=== PATIENT | female | born 1945 | race Caucasian/White ===

== ENCOUNTER 2023-10-15 09:57 | Outpatient (OUT) | payer MEDICARE, SELFPAY ==
--- NOTE | 2023-10-15 09:59 | VEIN_ITS ---
Patient Name: CARLOS A BAKER MR#: [id number] : 1945 Exam Date: 10/15/2023 Ordering Doctor: DR RONALD FORRESTER D.P.M. RADIOLOGY REPORT PROCEDURE: VC EXT VENOUS REFLUX CHIN LMTD COMPARISON: None. INDICATIONS: Chronic venous insufficiency I87.2 TECHNIQUE: Duplex imaging of the lower extremity to assess the deep and superficial venous system for the presence of deep or superficial venous incompetence and to document the location and severity of disease. The study includes evaluation of the great saphenous vein (GSV), anterior accessory saphenous vein (AASV) and small saphenous vein (SSV). Patient scanned in reverse Trendelenburg and standing. FINDINGS: RIGHT LOWER EXTREMITY: Saphenofemoral Junction Reflux: Yes 7.0mm 2.6 sec GSV: Diam (mm) Reflux/ Time (sec) Proximal Thigh 6.1 Yes 0.6 Mid Thigh 2.4 No Distal Thigh 2.6 Yes 2.0 Prox Calf 2.5 Yes 2.0 Mid Calf 2.6 Yes 0.2 Saphenopopliteal Junction Reflux: 3.7mm Yes 0.4 SSV: Proximal Calf 3.0 Yes 0.8 Mid Calf 2.3 Yes 3.9 AASV: Proximal Thigh 9.9 Yes 3.6 Mid Thigh 8.6 Yes 1.0 Distal Thigh Thrombi: No acute or chronic thrombus. Compressibility: Normal. Flow: Mild deep venous reflux. Preforator: Distal medial lower leg measures 4.1 mm with 1.1s reflux. Prox/medial lower leg 4.5 mm with 1.0s reflux. Dist/ant thigh 5.1mm with 1.0s reflux. Tech Note: Previously treated GSV. Remaining segments are tortuous and discontinuous. Large complex area medial popliteal fossa measures 5.7 x 4.0 x 2.7 cm. Incompetent varicose vein mid medial thigh off AASV measures 6.8 mm with 1.2s reflux. Proximal lateral lower leg varicose vein measures 5.0 mm with 1.6s reflux. Lateral knee varicose vein measures 6.2 mm with 2.3s reflux. Distal anterior thigh varicose vein measures 5.0 mm with 2.3s reflux. LEFT LOWER EXTREMITY: Saphenofemoral Junction Reflux: Yes 13.5 mm 0.9 sec GSV: Diam (mm) Reflux/Time (sec) Proximal Thigh 7.2 Yes 1.7 Mid Thigh 4.7 Yes 3.9 Distal Thigh 4.6 Yes 3.9 Prox Calf 6.4 Yes 3.9 Mid Calf 4.1 Yes 2.8 Saphenopopliteal Junction Relux: 5.7 mm Yes 0.8 SSV: Proximal Calf 5.5 Yes 1.5 Mid Calf 2.5 Yes 0.9 AASV: Proximal Thigh 3.2 Yes 0.6 Mid Thigh 3.1 Yes 1.0 Distal Thigh Thrombi: No acute or chronic thrombus. Compressibility: Normal. Flow: Mild deep venous reflux. Power And Recovery Superintendent: Distal medial lower leg measures 2.4 mm with 2.2s reflux. Mid posterior calf 1.2s reflux. Tech Note: Incompetent varicose vein mid medial lower leg measures 5.5 mm with 3.9s reflux. Varicose vein mid medial thigh measures 3.0 mm with 0.5s reflux. CONCLUSION: 1. Discontiguous proximal right great saphenous vein likely related to prior procedure 2. Severe venous insufficiency and dilatation of the right anterior accessory saphenous vein 3. Severe venous insufficiency with dilatation left great saphenous vein 4. Bilateral incompetent varicose veins 5. 5.7 cm complex mass medial popliteal fossa. MRI follow-up is recommended to exclude a mass Dictated by: Lang Smiley MD on 10/15/2023 at 11:40 Approved by: Lang Smiley MD on 10/15/2023 at 11:43
--- NOTE | 2023-10-15 09:59 | VEIN_ITS ---
Patient Name: CARLOS A BAKER MR#: [id number] : 1945 Exam Date: 10/15/2023 Ordering Doctor: DR RONALD FORRESTER D.P.M. RADIOLOGY REPORT PROCEDURE: [facility] - OFFICE VISIT INITIAL COMPARISON: None. PROGRESS NOTES: 6-year-old female who presents with a 50 year history of lower extremity pain swelling and varicose veins. The patient reports that the right leg is significantly worse than the left with persistent inflammation and pain along the anterior right thigh. The patient rates the pain as a 10/10 at certain times of the day. The patient describes the pain as aching dull and heaviness with sharp pain along the anterior right thigh at times. The patient's symptoms are exacerbated by prolonged sitting and standing and are only partially relieved by rest, leg elevation, over the counter Tylenol and support stockings. The patient is referred by Dr. Velasco secondary to venous insufficiency. The patient denies any signs and symptoms to suggest arterial ischemia. The patient describes a family history significant for cancer in her mother. Heart disease in her mother. Type 2 diabetes in her father. . Six grandkids and 4 great grandkids. Patient's past medical history is significant for hypothyroidism, hypercholesterolemia and type 2 diabetes. Social alcohol use. The patient has never smoked. No illicit drug use. The patient has previously been seen by Dr. Aguirre for injection of the right leg. No history of deep venous thrombus or pulmonary embolus. See separate history and physical for medication list. Nursing notes were reviewed After history and physical exam I discussed at length the pathophysiology of venous hypertension and possible treatments, therapies and strategies available. We discussed at length the importance of elevating the lower extremities above the level of the heart, increased physical activity and compression stocking use. We discussed alternatives including conservative treatment with compression stockings, surgical interventions with ligation and stripping and phlebectomy. We discussed intravenous laser ablation, micro foam chemical ablation and injection sclerotherapy at length. Risks benefits and alternatives were discussed and the patient's questions were answered. Ultrasound venous reflux study performed the same day was discussed at length with the patient. The report demonstrates evidence of prior treatment of the proximal right great saphenous vein. Severe right anterior accessory saphenous vein and left great saphenous vein venous insufficiency with dilatation. Bilateral incompetent varicose veins. 5.7 cm right popliteal fossa heterogeneous mass without definite color flow. PHYSICAL EXAM: The right leg demonstrates extensive varicose, reticular and spider veins. Mild subcutaneous edema. Mild hemosiderin staining. No active ulcerations. The left leg demonstrates extensive varicose, reticular and spider veins. Mild subcutaneous edema. Mild hemosiderin staining. No active ulcerations. Both thighs, legs and feet were symmetrically warm to the touch. Good posterior tibial and dorsalis pedis pulses were present bilaterally. VEIN/VC Facility NEW [facility] IMPRESSION: 1. Severe right anterior and left great saphenous vein venous insufficiency with dilatation and saphenofemoral junction reflux. 2. Bilateral lower extremity incompetent varicose veins 3. Mild bilateral lower extremity subcutaneous edema 4. No definite flow significant arterial disease 5. CEAP: C4a, Ep, As, Pr 6. Indeterminate right popliteal fossa mass, the differential diagnosis would include complex popliteal cyst versus particle disease versus malignancy PLAN: 1. CT exam of the right knee without and with contrast to evaluate enhancement characteristics of 5.7 cm mass 2. Intravenous laser ablation right anterior accessory saphenous vein and left great saphenous vein 3. Micro foam chemical ablation bilateral incompetent varicose veins 4. Injection sclerotherapy reticular and spider veins 5. Long-term use of bilateral thigh-high 20-30 mm compression stockings 6. Elevated legs and increased physical activity for symptomatic relief Nurse notes, history and physical were reviewed and confirmed, see attached forms. The nurse was present throughout the physical exam and consultation Dictated by: Lang Smiley MD on 10/15/2023 at 13:19 Approved by: Lang Smiley MD on 10/15/2023 at 13:25
== END 2023-10-15 09:58 | disposition home or self-care (01) ==
LOC: VC 09:58
PROVIDERS: PCP Family Medicine; Visit Provider Podiatrist Foot & Ankle Surgery
DX: E11.49 Type 2 diabetes mellitus with other diabetic neurological complication (principal); I87.2 Venous insufficiency (chronic) (peripheral); B35.1 Tinea unguium; M79.674 Pain in right toe(s); M79.675 Pain in left toe(s)
CPT/HCPCS: 93970; G0463

== ENCOUNTER 2023-11-02 12:35 | Outpatient (OUT) | payer MEDICARE, SELFPAY ==
--- NOTE | 2023-11-02 12:45 | CT_ITS ---
The [address] [address] Patient Name: CARLOS A BAKER MRN: [id number] date: 1945 Sex: F Assigned Patient Location: LAB Current Patient Location: Accession/Order Number: [id number] Exam Date: 11/02/2023 13:10 Report Date: 11/03/2023 06:28 At the request of: CINDA JOHNSON Procedure: CT knee RT wo/w con EXAMINATION: CT knee RT wo/w con HISTORY: Right Knee Mass R22.41 ; lump posterior to right knee COMPARISON: No relevant comparison available. TECHNIQUE: Multi-planar CT images were created without and/or with IV contrast according to examination type. Dose reduction techniques were achieved by using automated exposure control and/or adjustment of mA and/or kV according to patient size and/or use of iterative reconstruction technique. FINDINGS: BONES: Prior knee replacement and resurfacing of the patellofemoral resulting in significant metallic artifact. SOFT TISSUES: Fluid collection within posterior medial popliteal fossa partially visible above and below the metallic streak artifact. EFFUSION: None visible. OTHER: Negative. CT/CT knee RT wo/w con IMPRESSION: Fluid collection within medial popliteal fossa is suspected to represent a Toscano's cyst. Ultrasound evaluation recommended. Electronically authenticated by: APOLLO THOMPSON Date: 11/03/2023 06:28
[2023-11-02 12:51] LABS: Estimated GFR (African America >60 (>=60); Estimated GFR (Non-African Ame >60 (>=60)
--- OUTSIDE RECORDS SUMMARY | 2023-11-02 12:52 | XMS_ITS | CCD ---
Author Organization [facility] Care Team Providers Care Public Speaking Coach Name Role Phone MIKY GLEZ Unavailable Unavailable MARIBELL, NAKIA Unavailable Unavailable KASSAJEANETH KAYEL Unavailable Unavailable MARIBELL, NAKIA Unavailable Unavailable Unavailable Primary Care Provider Unavailveronica Winters MD, Octavio Nelson Primary Care Provider OCTAVIO WINTERS Primary Care Unavailable JOIE TOMAS Admitting UnavailJOIE Meyers Referring UnavailLORAINE Sahni Attending Unavailab emma Winters MD, Octavio Nelson Primary Care Provider RONALD FORRESTER Attending Unavailable OCTAVIO WINTERS R Primary Care Unavailable OCTAVIO WINTERS R Referring Unavailable RAVEN MACIAS Attending Unavailable PETERTYLER GREENBERG Attending Unavailable BROWN, Christopher Attending Unavailable BROWN, Christopher Attending Unavailable BROWN, Christopher Attending Unavailable BROWN, Christopher Attending Unavailable BROWN, Christopher Attending Unavailable BROWN, Christopher Attending Unavailable BROWN, Christopher Attending Unavailable DO Mara Hernandez Attending Unavaila ble BROWN, Christopher Attending Unavailable BROWN, Christopher Attending Unavailable BROWN, Christopher Admitting Unavailable BROWN, Christopher Referring Unavailable PETERTYLER GREENBERG Attending Unavailable PETER, TYLER Admitting Unavailable BROWN, Christopher Admitting Unavailable BROWN, Christopher Attending Unavailable BROWN, Christopher Admitting Unavailable BROWN, Christopher Attending Unavailable Danish Pires Attending Unavailable Colton Luke Attending Unavailable Colton Luke Admitting Unavailable Colton Luke Attending Unavailable Allergies Allergy Classification Reported Allergen(s) Allergy Type Date of Onset Reaction(s) Facility (1 source) naproxen; Translations: [facility] Propranolol; Translations: [PROPRANOLOL] Drug Allergy 2 Other (See Comments) [facility] Work Phone: (1 source) Cisapride; Translations: [Propulsid] Drug Allergy [facility] Repository (1 source) Clarithromycin; Translations: [Biaxin] Drug Allergy [facility] Repository (1 source) Naproxen; Translations: [Naprosyn] Drug Allergy [facility] Repository (1 source) oxaprozin; Translations: [Daypro] Drug Allergy [facility] Repository Medications Current Medications Medication Drug Class(es) Dates Sig (Normalized) Sig (Original) aspirin 81 mg delayed release oral tablet (7 sources) Platelet Aggregation Inhibitor, Nonsteroidal Anti-inflammatory Drug Start: 10-18-2010 take 1 tablet by mouth once daily aspirin 81 MG EC tablet Take 1 (one) tablet (81 mg total) by mouth daily . 0 10/18/2010 Active atorvastatin 80 mg oral tablet (7 sources) HMG-CoA Reductase Inhibitor take 1 tablet by mouth once daily atorvastatin (LIPITOR) 80 MG tablet Take 1 (one) tablet (80 mg total) by mouth daily . 0 Active calcium acetate 667 mg oral capsule (4 sources) take 2 capsules by mouth three times daily at mealtime calcium acetate,phosphat bind, (PHOSLO) 667 mg capsule Take 2 (two) capsules (1,334 mg total) by mouth 3 (three) times a day with meals . 0 Active calcium carbonate 1500 mg / cholecalciferol 0.01 mg oral tablet (7 sources) Vitamin D Start: 10-18-2010 calcium carbonate-vitamin D3 600 mg-10 mcg (400 unit) per tablet Take by mouth . 0 10/18/2010 Active famotidine 40 mg oral tablet (7 sources) Histamine-2 Receptor Antagonist take 1 tablet by mouth at bedtime famotidine (PEPCID) 40 MG tablet Take 1 (one) tablet (40 mg total) by mouth at bedtime . 0 Active hydroCHLOROthiazide 25 mg / lisinopril 20 mg oral tablet (7 sources) Thiazide Diuretic, Angiotensin Converting Enzyme Inhibitor take 1 tablet by mouth once daily lisinopriL-hydroc hlorothiazide (PRINZIDE,ZESTORE TIC) 20-25 mg per tablet Take 1 (one) tablet by mouth daily . 0 Active metFORMIN hydrochloride 500 mg oral tablet (7 sources) Biguanide take 1 tablet by mouth twice daily metFORMIN (GLUCOPHAGE) 500 MG tablet Take 1 (one) tablet (500 mg total) by mouth 2 (two) times a day . 0 Active topiramate 100 mg oral tablet (5 sources) Start: 03-06-2022 take 0.5 tablet by mouth once daily, then take 0.5 tablet by mouth twice daily, then take 1 tablet by mouth twice daily topiramate (Topamax) 100 MG tablet Take 0.5 (one-half) tablet (50 mg total) by mouth daily for 7 days, THEN 0.5 (one-half) tablet (50 mg total) 2 (two) times a day for 7 days, THEN 1 (one) tablet (100 mg total) 2 (two) times a day. 71 tablet 2 03/06/2022 Active nfujoom-xjvk-eyqdh-oreg- capryl 100 mg-150 mg- 50 mg-150 mg cap (7 sources) hwihymf-xzro-dpf v d-cyrc-dnciln 100 mg-150 mg- 50 mg-150 mg cap Take by mouth . 0 Active zinc gluconate 50 mg oral tablet (7 sources) take 1 tablet by mouth once daily zinc gluconate 50 mg tablet Take 1 (one) tablet (50 mg total) by mouth daily . 0 Active Problems Problem Classification Problem Date Documented Da te Episodic/Chronic Administrative/social admission (4 sources) Other reduced mobility; Translations: [Other specified conditions influencing health status] Onset: 10-26-2023 10-26-2023 Episodic Other hereditary and degenerative nervous system conditions (6 sources) Essential tremor; Translations: [Essential tremor] Onset: 10-11-2023 Chronic Other hereditary and degenerative nervous system conditions (1 source) Intention tremor; Translations: [Other specified forms of tremor] 04-10-2023 Chronic Other hereditary and degenerative nervous system conditions (1 source) Essential tremor; Translations: [Essential tremor] Onset: 10-11-2023 Chronic Other nervous system disorders (2 sources) Tremor; Translations: [Tremor, unspecified] Episodic Residual codes; unclassified (4 sources) Activity of daily living (ADL) alteration; Translations: [Other specified health status] Onset: 10-26-2023 10-26-2023 Episodic Varicose veins of lower extremity (1 source) Asymptomatic varicose veins of unspecified lower extremity; Translations: [Asymptomatic varicose veins of unspecified lower extremity] Onset: 11-28-2017 Episodic Results Test Name Value Interpretation Reference Range Facil ity Consent for Treatmenton 10-05 Consent for Treatment [id number] F [facility] Screenson 10-15-2023 Screens [id number] F [facility] Ambulatory Visit Summaryon 0 10-12-2023 Ambulatory Visit Summary CARLOS A SOW :1945 Visit Date:10/12/2023 Ambulatory Visit Instructions Your Diagnosis Annual visit for general adult medical examination without abnormal findings 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 Diabetic polyneuropathy associated with type 2 diabetes mellitus Type 2 diabetes mellitus with hyperlipidemia, Type 2 diabetes mellitus with morbid obesity HTN - Hypertension GERD (gastroesophageal reflux disease) Insomnia Screening mammogram for breast cancer On statin therapy BMI 35.0-35.9,adult Obesity Your Care Team Attending Physician - JOSHUA LUCAS, Octavio Primary Care Physician - JOSHUA LUCAS, Octavio This Is Your Medications List Misc Prescription (Glucometer test strips) Misc Prescription (Handicap placard) Misc Prescription (Lancets) Misc Prescription (Misc DME Prescription) Misc Prescription (Misc DME Prescription) Turmeric albuterol (Albuterol (Eqv-Proventil HFA) 90 mcg/inh inhalation aerosol) ascorbic acid (Vitamin C) atorvastatin (atorvastatin 80 mg Tab) calcium carbonate (calcium 500 mg tablet) cholecalciferol (Vitamin D3 2000 intl units) famotidine (famotidine 40 mg Tab) hydrochlorothiazide-tk nopril (hydrochlorothiazide-lis inopril 25 mg-20 mg Tab) metformin (metformin 500 mg Tab) multivitamin with minerals (Multivitamins and Minerals) pantoprazole (Pantoprazole [address] Tab) triamcinolone topical (triamcinolone topical 0.5% cream) zinc sulfate (Zinc) [Image Removed: STOP]Stop taking these medications levofloxacin (Levaquin 500 mg Tab) Procedures Performed Carpal tunnel release (01/24/2021), Colonoscopy (08/06/2013), Bunionectomy (12/14/2009), 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 Discharge Vitals Blood Pressure 118/70 Height 153 cm Height 60 in Weight 84.11 kg Weight 185.042 lb BMI 35.93 What to do next Scheduled Follow-Up Appointments Sunday 12:30 PM EDT With: Where: [facility] Sunday 11:40 AM EDT With: Octavio WINTERS MD Where: [facility] [place] [facility] [address] [place] [address]- \.br\ You Need to Complete the Following\.br\ MA Mamm Screen w/CAD if perf and 3D Stuart, 10/30/23, Routine, Order for Future Visit, Transport Mode: Ambulatory, Reason: Screening, Reason: Z12.31, No, No, No, Screening mammogram for breast cancer, pp_set_radiology_s ubspecialty, Required & Missing, [facility]\.br\ Medications\.br\ What How Much When Instructions\.br\ Unchanged albuterol (Albuterol (Eqv-Proventil HFA) 90 mcg/ inh inhalation aerosol) 2 Puffs Inhalation Every 6 hours\.br\ Unchanged ascorbic acid (Vitamin C) See instructions patient gets OTC, not prescribed \.br\ Unchanged atorvastatin (atorvastatin 80 mg Tab) 1 Tablets By Mouth Every day\.br\ Unchanged calcium carbonate (calcium 500 mg tablet) See instructions patient gets OTC, not prescribed \.br\ Unchanged cholecalciferol (Vitamin D3 2000 intl units) See instructions Patient gets OTC, not prescribed \.br\ Unchanged famotidine (famotidine 40 mg Tab) 1 Tablets By Mouth Once a day (at bedtime)\.br\ Unchanged hydrochlorothiazid e-lisinopril (hydrochlorothiazi de-lisinopril 25 mg-20 mg Tab) 1 Tablets By Mouth Every day\.br\ Unchanged metformin (metformin 500 mg Tab) 1 Tablets By Mouth 2 times a day\.br\ Unchanged Misc Prescription (Glucometer test strips) See instructions Test blood sugar daily DX E11.69 \.br\ Unchanged Misc Prescription (Handicap placard) See instructions Duration 5 years \.br\ Unchanged Misc Prescription (Lancets) See instructions Test blood sugar daily DX E11.69 \.br\ Unchanged Misc Prescription (Misc DME Prescription) See instructions freestyle lite test in vitro strip, one QD, dx e11.9 \.br\ Unchanged Misc Prescription (Misc DME Prescription) See instructions freestyle lancets, one QD, dx e11.9 \.br\ Unchanged multivitamin with minerals (Multivitamins and Minerals)\.br\ Unchanged pantoprazole (Pantoprazole [address] Tab) 1 Tablets By Mouth Every day take 30 minutes prior to one meal daily \.br\ Unchanged triamcinolone topical (triamcinolone topical 0.5% cream) 1 Application Topical 2 times a day\.br\ Unchanged Turmeric 500 Milligram By Mouth Every day\.br\ Unchanged zinc sulfate (Zinc) See instructions Patient gets OTC, not prescribed \.br\ \.br\ What How Much When Comments\.br\ Stop Taking levofloxacin (Levaquin 500 mg Tab) 1 Tablets By Mouth Every 24 hours Duration: 10 Days\.br\ Allergies\.br\ Biaxin (Nausea, vomiting and diarrhea)\.br\ Daypro (Nausea, vomiting and diarrhea)\.br\ Naprosyn\.br\ Propulsid (Unspecified)\.br\ Problems\.br\ Ongoing - Any problem that you are currently receiving treatment for.\.br\ Action tremor\.br\ Acute bacterial bronchitis\.br\ Allergy to environmental factors\.br\ At risk for falls\.br\ BMI 35.0-35.9,adult\.b r\ CAD (coronary artery disease)\.br\ Carpal tunnel syndrome, left upper limb\.br\ Diabetic polyneuropathy associated with type 2 diabetes mellitus\.br\ DJD (degenerative joint disease)\.br\ Ectatic aorta\.br\ Eczema\.br\ 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\.br\ Gait disturbance\.br\ GERD (gastroesophageal reflux disease)\.br\ HTN - Hypertension\.br\ Impingement syndrome of right shoulder\.br\ Insomnia\.br\ Intermittent asthma with acute exacerbation\.br\ Left lumbar radiculopathy\.br\ MC[facility] current use of oral hypoglycemic drug\.br\ Meniere disease\.br\ Mild persistent asthma\.br\ Mixed hyperlipidemia\.br \ Mixed stress and urge urinary incontinence\.br\ Morbid obesity\.br\ On statin therapy\.br\ Right cervical radiculopathy\.br\ Type 2 diabetes mellitus with hyperlipidemia\.br \ Type 2 diabetes mellitus with morbid obesity\.br\ Varicose veins of bilateral lower extremities with other complications\.br\ Varicose veins of lower extremities with inflammation\.br\ Varicose veins of right lower extremity with pain\.br\ Venous insufficiency of right leg\.br\ Historical - Any problem that you are no longer receiving treatment for.\.br\ borderline diabetic\.br\ Factor 5 Leiden mutation\.br\ History of - hypercholesterolem ia\.br\ hypertension\.br\ Obesity (BMI 30-39.9)\.br\ Reactive airway disease\.br\ Screening mammogram, encounter for\.br\ Patient Survey\.br\ You may receive a survey via text or e-mail asking about your office visit. Please share your experience with us by completing your survey. We appreciate your feedback and thank you for choosing us for your care.\.br\ Education Materials\.br\ Type 2 Diabetes Mellitus, Self-Care, Adult\.br\ Caring for yourself after you have been diagnosed with type 2 diabetes (type 2 diabetes mellitus) means keeping your blood sugar (glucose) under control with a balance of:\.br\ ? \.br\ Nutrition.\.br\ ? \.br\ Exercise.\.br\ ? \.br\ Lifestyle changes.\.br\ ? \.br\ Medicines or insulin, if needed.\.br\ ? \.br\ Support from your team of health care providers and others.\.br\ What are the risks?\.br\ Having type 2 diabetes can put you at risk for other long-term (chronic) conditions, such as heart disease and kidney disease. Your health care provider may prescribe medicines to help prevent complications from diabetes.\.br\ How to monitor your blood glucose\.br\ \.br\ ? \.br\ Check your blood glucose every day or as often as told by your health care provider.\.br\ ? \.br\ Have your A1C (hemoglobin A1C) level checked two or more times a year, or as often as told by your health care provider.\.br\ ? \.br\ Your health care provider will set personalized treatment goals for you. Generally, the goal of treatment is to maintain the following blood glucose levels:\.br\ ? \.br\ Before meals: 80?130 mg/dL (4.4?7.2 mmol/L).\.br\ ? \.br\ After meals: below 180 mg/dL (10 mmol/L).\.br\ ? \.br\ A1C level: less than 7%.\.br\ How to manage hyperglycemia and hypoglycemia\.br\ Hyperglycemia symptoms\.br\ Hyperglycemia, also called high blood glucose, occurs when blood glucose is too high. Make sure you know the early signs of hyperglycemia, such as:\.br\ ? \.br\ Increased thirst.\.br\ ? \.br\ Hunger.\.br\ ? \.br\ Feeling very tired.\.br\ ? \.br\ Needing to urinate more often than usual.\.br\ ? \.br\ Blurry vision.\.br\ Hypoglycemia symptoms\.br\ Hypoglycemia, also called low blood glucose, occurs with a blood glucose level at or below 70 mg/dL (3.9 mmol/L). Diabetes medicines lower your blood glucose and can cause hypoglycemia. The risk for hypoglycemia increases during or after exercise, during sleep, during illness, and when skipping meals or not eating for a long time (fasting).\.br\ It is important to know the symptoms of hypoglycemia and treat it right away. Always have a 15-gram rapid-acting carbohydrate snack with you to treat low blood glucose. Family members and close friends should also know the symptoms and understand how to treat hypoglycemia, in case you are not able to treat yourself. Symptoms may include:\.br\ ? \.br\ Hunger.\.br\ ? \.br\ Anxiety.\.br\ ? \.br\ Sweating and feeling clammy.\.br\ ? \.br\ Dizziness or feeling light-headed.\.br\ ? \.br\ Sleepiness.\.br\ ? \.br\ Increased heart rate.\.br\ ? \.br\ Irritability.\.br\ ? \.br\ Tingling or numbness around the mouth, lips, or tongue.\.br\ ? \.br\ Restless sleep.\.br\ Severe hypoglycemia is when your blood glucose level is at or below 54 mg/dL (3 mmol/L).\.br\ Severe hypoglycemia is an emergency. Do not wait to see if the symptoms will go away. Get medical help right away. Call your local emergency services (911 in the [facility] Ambulatory Visit Summary CARLOS A SOW :1945 Visit Date:10/12/2023 Ambulatory Visit Instructions Your Diagnosis Acute bacterial bronchitis Mild persistent asthma Action tremor Morbid obesity BMI 35.0-35.9,adult Your Care Team Attending Physician - Octavio WINTERS MD Primary Care Physician - Octavio WINTERS MD This Is Your Medications List Contact prescribing physician if questions or concerns Misc Prescription (Glucometer test strips) Misc Prescription (Handicap placard) Misc Prescription (Lancets) Misc Prescription (Misc DME Prescription) Misc Prescription (Misc DME Prescription) Turmeric albuterol (Albuterol (Eqv-Proventil HFA) 90 mcg/inh inhalation aerosol) ascorbic acid (Vitamin C) atorvastatin (atorvastatin 80 mg Tab) calcium carbonate (calcium 500 mg tablet) cholecalciferol (Vitamin D3 2000 intl units) famotidine (famotidine 40 mg Tab) hydrochlorothiazide-tk nopril (hydrochlorothiazide-lis inopril 25 mg-20 mg Tab) metformin (metformin 500 mg Tab) multivitamin with minerals (Multivitamins and Minerals) pantoprazole (Pantoprazole [address] Tab) triamcinolone topical (triamcinolone topical 0.5% cream) zinc sulfate (Zinc) [Image Removed: STOP]Stop taking these medications levofloxacin (Levaquin 500 mg Tab) Procedures Performed Carpal tunnel release (01/24/2021), Colonoscopy (08/06/2013), Bunionectomy (12/14/2009), 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 Discharge Vitals Heart Rate (Peripheral) 52 Respiratory Rate 16 Blood Pressure 118/70 Height 153 cm Height 60 in Weight 84.1 kg Weight 185.02 lb BMI 35.93 What to do next Scheduled Follow-Up Appointments Sunday 12:30 PM EDT With: Where: [facility] Sunday 11:40 AM EDT With: Octavio WINTERS MD Where: [facility] [address] [place] [address]- \.br\ You Need to Schedule the Following Appointments\.br\ Follow Up with Octavio WINTERS MD, [facility] When: Only if needed\.br\ Where:\.br\ \.br\ You Need to Complete the Following\.br\ MA Mamm Screen w/CAD if perf and 3D Stuart, 10/30/23, Routine, Order for Future Visit, Transport Mode: Ambulatory, Reason: Screening, Reason: Z12.31, No, No, No, Screening mammogram for breast cancer, pp_set_radiology_s ubspecialty, Required & Missing, [facility]\.br\ Medications\.br\ What How Much When Instructions\.br\ Unchanged albuterol (Albuterol (Eqv-Proventil HFA) 90 mcg/ inh inhalation aerosol) 2 Puffs Inhalation Every 6 hours Contact prescribing physician if questions or concerns \.br\ Unchanged ascorbic acid (Vitamin C) See instructions patient gets OTC, not prescribed Contact prescribing physician if questions or concerns \.br\ Unchanged atorvastatin (atorvastatin 80 mg Tab) 1 Tablets By Mouth Every day Contact prescribing physician if questions or concerns \.br\ Unchanged calcium carbonate (calcium 500 mg tablet) See instructions patient gets OTC, not prescribed Contact prescribing physician if questions or concerns \.br\ Unchanged cholecalciferol (Vitamin D3 2000 intl units) See instructions Patient gets OTC, not prescribed Contact prescribing physician if questions or concerns \.br\ Unchanged famotidine (famotidine 40 mg Tab) 1 Tablets By Mouth Once a day (at bedtime) Contact prescribing physician if questions or concerns \.br\ Unchanged hydrochlorothiazid e-lisinopril (hydrochlorothiazi de-lisinopril 25 mg-20 mg Tab) 1 Tablets By Mouth Every day Contact prescribing physician if questions or concerns \.br\ Unchanged metformin (metformin 500 mg Tab) 1 Tablets By Mouth 2 times a day Contact prescribing physician if questions or concerns \.br\ Unchanged Misc Prescription (Glucometer test strips) See instructions Test blood sugar daily DX E11.69 Contact prescribing physician if questions or concerns \.br\ Unchanged Misc Prescription (Handicap placard) See instructions Duration 5 years Contact prescribing physician if questions or concerns \.br\ Unchanged Misc Prescription (Lancets) See instructions Test blood sugar daily DX E11.69 Contact prescribing physician if questions or concerns \.br\ Unchanged Misc Prescription (Misc DME Prescription) See instructions freestyle lite test in vitro strip, one QD, dx e11.9 Contact prescribing physician if questions or concerns \.br\ Unchanged Misc Prescription (Misc DME Prescription) See instructions freestyle lancets, one QD, dx e11.9 Contact prescribing physician if questions or concerns \.br\ Unchanged multivitamin with minerals (Multivitamins and Minerals) Contact prescribing physician if questions or concerns \.br\ Unchanged pantoprazole (Pantoprazole [address] Tab) 1 Tablets By Mouth Every day take 30 minutes prior to one meal daily Contact prescribing physician if questions or concerns \.br\ Unchanged triamcinolone topical (triamcinolone topical 0.5% cream) 1 Application Topical 2 times a day Contact prescribing physician if questions or concerns \.br\ Unchanged Turmeric 500 Milligram By Mouth Every day Contact prescribing physician if questions or concerns \.br\ Unchanged zinc sulfate (Zinc) See instructions Patient gets OTC, not prescribed Contact prescribing physician if questions or concerns \.br\ \.br\ What How Much When Comments\.br\ Stop Taking levofloxacin (Levaquin 500 mg Tab) 1 Tablets By Mouth Every 24 hours Duration: 10 Days\.br\ Allergies\.br\ Biaxin (Nausea, vomiting and diarrhea)\.br\ Daypro (Nausea, vomiting and diarrhea)\.br\ Naprosyn\.br\ Propulsid (Unspecified)\.br\ Problems\.br\ Ongoing - Any problem that you are currently receiving treatment for.\.br\ Action tremor\.br\ Acute bacterial bronchitis\.br\ Allergy to environmental factors\.br\ At risk for falls\.br\ BMI 35.0-35.9,adult\.b r\ CAD (coronary artery disease)\.br\ Carpal tunnel syndrome, left upper limb\.br\ Diabetic polyneuropathy associated with type 2 diabetes mellitus\.br\ DJD (degenerative joint disease)\.br\ Ectatic aorta\.br\ Eczema\.br\ 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\.br\ Gait disturbance\.br\ GERD (gastroesophageal reflux disease)\.br\ HTN - Hypertension\.br\ Impingement syndrome of right shoulder\.br\ Insomnia\.br\ Intermittent asthma with acute exacerbation\.br\ Left lumbar radiculopathy\.br\ 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\.br\ Meniere disease\.br\ Mild persistent asthma\.br\ Mixed hyperlipidemia\.br \ Mixed stress and urge urinary incontinence\.br\ Morbid obesity\.br\ On statin therapy\.br\ Right cervical radiculopathy\.br\ Type 2 diabetes mellitus with hyperlipidemia\.br \ Type 2 diabetes mellitus with morbid obesity\.br\ Varicose veins of bilateral lower extremities with other complications\.br\ Varicose veins of lower extremities with inflammation\.br\ Varicose veins of right lower extremity with pain\.br\ Venous insufficiency of right leg\.br\ Historical - Any problem that you are no longer receiving treatment for.\.br\ borderline diabetic\.br\ Factor 5 Leiden mutation\.br\ History of - hypercholesterolem ia\.br\ hypertension\.br\ Obesity (BMI 30-39.9)\.br\ Reactive airway disease\.br\ Screening mammogram, encounter for\.br\ Patient Survey\.br\ You may receive a survey via text or e-mail asking about your office visit. Please share your experience with us by completing your survey. We appreciate your feedback and thank you for choosing us for your care.\.br\ Education Materials\.br\ Asthma, Adult\.br\ \.br\ Asthma is a long-term (chronic) condition that causes recurrent episodes in which the lower airways in the lungs become tight and narrow. The narrowing is caused by inflammation and tightening of the smooth muscle around the lower airways.\.br\ Asthma episodes, also called asthma attacks or asthma flares, may cause coughing, making high-pitched whistling sounds when you breathe, most often when you breathe out (wheezing), shortness of breath, and chest pain. The airways may produce extra mucus caused by the inflammation and irritation. During an attack, it can be difficult to breathe. Asthma attacks can range from minor to life-threatening.\ .br\ Asthma cannot be cured, but medicines and lifestyle changes can help control it and treat acute attacks. It is important to keep your asthma well controlled so the condition does not interfere with your daily life.\.br\ What are the causes?\.br\ This condition is believed to be caused by inherited (genetic) and environmental factors, but its exact cause is not known.\.br\ What can trigger an asthma attack?\.br\ Many things can bring on an asthma attack or make symptoms worse. These triggers are different for every person. Common triggers include:\.br\ ? \.br\ Allergens and irritants like mold, dust, pet dander, cockroaches, pollen, air pollution, and chemical odors.\.br\ ? \.br\ Cigarette smoke.\.br\ ? \.br\ Weather changes and cold air.\.br\ ? \.br\ Stress and strong emotional responses such as crying or laughing hard.\.br\ ? \.br\ Certain medications such as aspirin or beta blockers.\.br\ ? \.br\ Infections and inflammatory conditions, such as the flu, a cold, pneumonia, or inflammation of the nasal membranes (rhinitis).\.br\ ? \.br\ Gastroesophageal reflux disease (GERD).\.br\ What are the signs or symptoms?\.br\ Symptoms may occur right after exposure to an asthma trigger or hours later and can vary by person. Common signs and symptoms include:\.br\ ? \.br\ Wheezing.\.br\ ? \.br\ [facility] Ambulatory Visit Summary CARLOS A SOW Omar :1945 Visit Date:10/12/2023 Ambulatory Visit Instructions Your Diagnosis Acute bacterial bronchitis Mild persistent asthma Action tremor Morbid obesity BMI 35.0-35.9,adult Your Care Team Attending Physician - Octavio WINTERS MD Primary Care Physician - Octavio WINTERS MD This Is Your Medications List Contact prescribing physician if questions or concerns Misc Prescription (Glucometer test strips) Misc Prescription (Handicap placard) Misc Prescription (Lancets) Misc Prescription (Misc DME Prescription) Misc Prescription (Misc DME Prescription) Turmeric albuterol (Albuterol (Eqv-Proventil HFA) 90 mcg/inh inhalation aerosol) ascorbic acid (Vitamin C) atorvastatin (atorvastatin 80 mg Tab) calcium carbonate (calcium 500 mg tablet) cholecalciferol (Vitamin D3 2000 intl units) famotidine (famotidine 40 mg Tab) hydrochlorothiazide-tk nopril (hydrochlorothiazide-lis inopril 25 mg-20 mg Tab) metformin (metformin 500 mg Tab) multivitamin with minerals (Multivitamins and Minerals) pantoprazole (Pantoprazole [address] Tab) triamcinolone topical (triamcinolone topical 0.5% cream) zinc sulfate (Zinc) [Image Removed: STOP]Stop taking these medications levofloxacin (Levaquin 500 mg Tab) Procedures Performed Carpal tunnel release (01/24/2021), Colonoscopy (08/06/2013), Bunionectomy (12/14/2009), 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 Discharge Vitals Heart Rate (Peripheral) 52 Respiratory Rate 16 Blood Pressure 118/70 Height 153 cm Height 60 in Weight 84.1 kg Weight 185.02 lb BMI 35.93 What to do next Scheduled Follow-Up Appointments Sunday 11:40 AM EDT With: Octavio WINTERS MD Where: [facility] Family Medicine Office/Clini c Noteon 10-12-2023 Family Medicine Office/Clinic Note Review of Systems PHQ Score Initial Depression Screen Score: 0 SCORE Physical Exam Vitals & Measurements BP: 118/70 HT: 153 cm HT: 60 in WT: 84.11 kg WT: 185.042 lb BMI: 35.93 Assessment/Plan I was in the office and available for consultation and to provide direct supervision at the time of this visit. I have provided supervision of the care team and have reviewed this chart and office note and agree with the plan of care. 1. Annual visit for general adult medical examination without abnormal findings (Z00.00: Encounter for general adult medical examination without abnormal findings) The patient was given a customized and personalized print out of all the current AHRQ USPSTF?s recommendations for preventative services and all current CDC recommended immunizations, relevant risk recommendations and the following patient brochures were given. Reviewed Medicare Prevention Services checklist. CDC-Falls Prevention and home safety screening reviewed. Patient denies any falls in last 12 months, voices no worry about falling. Exhibits no problems with sitting, standing or ambulation. Patient aware with keeping walk way area free of clutter to prevent tripping and/or falling. [place] Advance Directives reviewed. Documents in chart. Patient denies any problems with ADL?s and Instrumental ADL?s. Cognitive screening completed with memory and clock face drawing. No deficits noted. Immunization record reviewed, discussed Shingrix vaccine with refusal. COVID vaccines have been administered, with 2 Boosters received. Allergies and medications reviewed and up to date. No concerns with taking medication as prescribed. Reviewed OTC medications, medication list up to date. Blood tests were reviewed: Discussed what tests need to be updated. Labs were up to date, will have completed prior to next PCP visit. Labs to be completed with [facility] [place]. No concerns with bowel/ bladder. Colonoscopy last completed 05/11/14 repeat if problems occur. Reviewed pain symptoms : denies pain, no pain medications taken. Reviewed all outside providers that patient follows. Last visit summary notes available in chart and/or have been requested. Patient declines any signs or symptoms of depression at this time. 8 minutes spent with screening and documentation. PHQ2 screening score 0. Patient rarely drinks alcohol, denies concerns. 8 minutes spent with screening and documentation. Audit score 0. Follow up scheduled with PCP, 3 month follow up. AWV has been scheduled, 10/13/24 @ 1pm Medicare provides yearly screening for alcohol and depression concerns. This is completed during our Medicare wellness visit for those who do not have a current diagnosis of depression or concerns with alcohol use. I spent a total of 17 minutes on this date of service which included preparing to see the patient, face to face patient care, completing clinical documentation, obtaining and/or reviewing separately obtained history, counseling and educating the patient with handouts. Explanations were provided with reviewing questionnaires. AUDIT risk assessment screening completed, risk score (0) with patient denying concerns with use. Completed PHQ-2 risk assessment for depression with risk score (0), negative findings. Patient has been reminded to notify the provider if there would be a change or concerns with symptoms with fear, unable to sleep, worrying too much or feeling down and/or sad with lost of interest with daily activities. Will continue to monitor with screening yearly during Medicare wellness visits. 2. 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 (D68.51: Activated protein C resistance) Follows with Dr. Winters. 3. Diabetic polyneuropathy associated with type 2 diabetes mellitus (E11.42: Type 2 diabetes mellitus with diabetic polyneuropathy) Patient with no complains of numbness/pain in arms,hands,legs, feet. Patient follows with Neurology for medications or testing. Denies further questions or concerns. DM stoplight handout reviewed with signs and symptoms to monitor for and report to PCP. Discussed ADA dietary recommendations with handouts provided. Encouraged to increase daily physical activity, adequate water intake, monitor carbs/chol and fats. Currently taking Metformin daily as directed. Follows up yearly with DM foot check, reminded patient to perform at home foot checks to prevent future complications. Complete DM eye exams completed yearly with visit summary notes available in chart. 4. Type 2 diabetes mellitus with hyperlipidemia, (E11.69: Type 2 diabetes mellitus with other specified complication)Type 2 diabetes mellitus with morbid obesity See #3. Patient encouraged to eat a diet that is low in saturated fats. Stressed importance of loosing weight and/or maintain healthy BMI. as being overweight does produce more lipids. Monitor alcohol intake and avoid smoking. Risks may also increase with a family history of hyperlipidemia. Patient voices understanding with healthy dietary choices to reduce risk factors associated (more content not included)... [facility] Comment on above: Result Comment: Electronically Signed By : Octavio WINTERS MD\.br\Date and Time Signed: 10/12/23 17:16 EST\.br\Electronically Co-Signed By: Viola Guerra\.br\Date and Time Co-Signed: 10/12/23 16:03 [facility]inic Note Chief Complaint pt presents today for 1wk rechk lungs, no rfs, needs shingrix & dm eye exam. History of Present Illness The patient is an 78-year-old female here for recheck of her asthma. She has been on 3 courses of antibiotics including cefdinir, doxycycline, and Levaquin. Also completed prednisone. She has 2 more pills of Levaquin left. She still has a cough with occasional sputum production. She has been taking albuterol breathing treatment twice a day in the morning and evening. She feels 80 percent better. She denies any fevers or chills. In the morning, she has a little bit of greenish phlegm, but she has always had thick white phlegm. She does not wheeze like she used to. She is not using any other inhalers. She had croup in the past. Wonders if this current situation is similar. We discussed that croup is a virus. Appetite is getting back to baseline. Family remains supportive of her. She just celebrated 78th birthday. Next week she is going to [place] to her neurologist to proceed if well enough with a neurologic procedure including ultrasound to help diminish her action tremor she has not been tolerant of majority of medications trialed. Review of Systems PHQ Score Initial Depression Screen Score: 0 SCORE See HPI otherwise negative Physical Exam Vitals & Measurements HR: 52(Peripheral) RR: 16 BP: 118/70 SpO2: 96% HT: 60 in HT: 153 cm WT: 84.1 kg WT: 185.02 lb BMI: 35.93 The patient is adequately groomed, reasonably hydrated, shoulder stature. Normocephalic, atraumatic. Wearing corrective lenses. Conjunctiva clear. Pupils are symmetric. Extraocular muscles intact. Nares with pale, clear rhinorrhea. No septal deviation. TMs are unremarkable, grossly normal hearing. Oropharynx is pink and moist with fair twenty-nine palms dentition with repairs. Neck is thick but supple. No thyromegaly. No appreciated JVD or bruits. Auscultation of lungs clear bilaterally. Regular rate and rhythm. Distant S1, S2. No discrete murmur, gallop, or rub. No use of accessory abdominal muscles or breathing. Abdomen is obese. Skin is deeply tanned. Adequate turgor. No petechiae or rash on exposed surfaces. The patient does have a visible intention tremor of the head and the arms and hands. She does have somewhat of an antalgic gait, broad based. Assessment/Plan 1. Acute bacterial bronchitis (J20.8: Acute bronchitis due to other specified organisms) Patient is doing much better following her acute bacterial bronchitis and sinusitis. Encouraged her to complete her oral antibiotic course. Expect some persistent congestion due to possible allergies and weather change. 2. Mild persistent asthma (J45.30: Mild persistent asthma, uncomplicated) Agreeable to continue aerosol treatments with albuterol up to twice daily over the next week. She may then taper off. Keep in mind that aerosol treatments can certainly increase the action tremor. If persistent cough or wheezing would give consideration to an inhaled corticosteroid. 3. 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 4. Morbid obesity (E66.01: Morbid (severe) obesity due to excess calories) The standard range for ages 18 and older is >=18.5 and < 25 kg/m2. Your BMI today was above this range, this falls in the overweight to obese category and there are medical benefits to weight loss. We can offer counselling, referral, and/or medical support in addressing this problem. Your BMI and weight management will be followed at subsequent visits. 5. BMI 35.0-35.9,adult (Z68.35: Body mass index [BMI] 35.0-35.9, adult) See #4 Portions of this record may have been created with voice recognition artificial intelligence software, specifically [employer], [employer] and or [employer]. Substitutions may have occurred due to the inherent limitations of voice recognition and artificial intelligence software. Follow-up With When Contact Information Octavio WINTERS MD, FAM Only if needed Additional Instructions: Patient Education Asthma, Adult Problem List/Past Medical History Ongoing Action tremor Acute bacterial bronchitis Allergy to environmental factors At risk for falls BMI 35.0-35.9,adult CAD (coronary artery disease) Carpal tunnel syndrome, left upper limb Diabetic polyneuropathy associated with type 2 diabetes mellitus DJD (degenerative joint disease) Ectatic aorta Eczema 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 Gait disturbance GERD (gastroesophageal reflux disease) HTN - Hypertension Impingement syndrome of right shoulder Insomnia Intermittent asthma with acute exacerbation Left lumbar radiculopathy MCFP current use of oral hypoglycemic drug Meniere disease Mild persistent asthma Mixed hyperlipidemia Mixed stress and urge urinary incontinence Morbid obesity On statin therapy Right cervical radiculopathy Type 2 diabetes m (more content not included)... Normal [facility] Comment on above: Result Comment: Electronically Signed By : JOSHUA LUCAS, Octavio\.br\Date and Time Signed: 10/12/23 15:02 EST Patient Educationon 10-12-19 Patient Education Endocrinology Type 2 Diabetes Mellitus, Self-Care, Adult Caring for yourself after you have been diagnosed with type 2 diabetes (type 2 diabetes mellitus) means keeping your blood sugar (glucose) under control with a balance of: ? Nutrition. ? Exercise. ? Lifestyle changes. ? Medicines or insulin, if needed. ? Support from your team of health care providers and others. What are the risks? Having type 2 diabetes can put you at risk for other long-term (chronic) conditions, such as heart disease and kidney disease. Your health care provider may prescribe medicines to help prevent complications from diabetes. How to monitor your blood glucose ? Check your blood glucose every day or as often as told by your health care provider. ? Have your A1C (hemoglobin A1C) level checked two or more times a year, or as often as told by your health care provider. ? Your health care provider will set personalized treatment goals for you. Generally, the goal of treatment is to maintain the following blood glucose levels: ? Before meals: 80?130 mg/dL (4.4?7.2 mmol/L). ? After meals: below 180 mg/dL (10 mmol/L). ? A1C level: less than 7%. How to manage hyperglycemia and hypoglycemia Hyperglycemia symptoms Hyperglycemia, also called high blood glucose, occurs when blood glucose is too high. Make sure you know the early signs of hyperglycemia, such as: ? Increased thirst. ? Hunger. ? Feeling very tired. ? Needing to urinate more often than usual. ? Blurry vision. Hypoglycemia symptoms Hypoglycemia, also called low blood glucose, occurs with a blood glucose level at or below 70 mg/dL (3.9 mmol/L). Diabetes medicines lower your blood glucose and can cause hypoglycemia. The risk for hypoglycemia increases during or after exercise, during sleep, during illness, and when skipping meals or not eating for a long time (fasting). It is important to know the symptoms of hypoglycemia and treat it right away. Always have a 15-gram rapid-acting carbohydrate snack with you to treat low blood glucose. Family members and close friends should also know the symptoms and understand how to treat hypoglycemia, in case you are not able to treat yourself. Symptoms may include: ? Hunger. ? Anxiety. ? Sweating and feeling clammy. ? Dizziness or feeling light-headed. ? Sleepiness. ? Increased heart rate. ? Irritability. ? Tingling or numbness around the mouth, lips, or tongue. ? Restless sleep. Severe hypoglycemia is when your blood glucose level is at or below 54 mg/dL (3 mmol/L). Severe hypoglycemia is an emergency. Do not wait to see if the symptoms will go away. Get medical help right away. Call your local emergency services (911 in the [place] Do not drive yourself to the hospital. If you have severe hypoglycemia and you cannot eat or drink, you may need glucagon. A family member or close friend should learn how to check your blood glucose and how to give you glucagon. Ask your health care provider if you need to have an emergency glucagon kit available. Follow these instructions at home: Medicines ? Take prescribed insulin or diabetes medicines as told by your health care provider. ? Do not run out of insulin or other diabetes medicines. Plan ahead so you always have these available. ? If you use insulin, adjust your dosage based on your physical activity and what foods you eat. Your health care provider will tell you how to adjust your dosage. ? Take rmib-kpe-tywyemr and prescription medicines only as told by your health care provider. Eating and drinking What you eat and drink affects your blood glucose and your insulin dosage. Making good choices helps to control your diabetes and prevent other health problems. A healthy meal plan includes eating lean proteins, complex carbohydrates, fresh fruits and vegetables, low-fat dairy products, and healthy fats. Make an appointment to see a registered dietitian to help you create an eating plan that is right for you. Make sure that you: ? Follow instructions from your health care provider about eating or drinking restrictions. ? Drink enough fluid to keep your urine pale yellow. ? Keep a record of the carbohydrates that you eat. Do this by reading food labels and learning the standard serving sizes of foods. ? Follow your sick-day plan whenever you cannot eat or drink as usual. Make this plan in advance with your health care provider. Activity ? Stay active. Exercise regularly, as told by your health care provider. This may include: ? Stretching and doing strength exercises, such as yoga or weight lifting, two or more times a week. ? Doing 150 minutes or more of moderate-intensity or vigorous-intensity exercise each week. This could be brisk walking, biking, or water aerobics. ? Spread out your activity over 3 or more days of the week. ? Do not go more than 2 days in a row without doing some kind of physical activity. (more content not included)... Normal [facility] Patient Educationon 10-11-19 Patient Education Pulmonary Medicine Asthma, Adult Asthma is a long-term (chronic) condition that causes recurrent episodes in which the lower airways in the lungs become tight and narrow. The narrowing is caused by inflammation and tightening of the smooth muscle around the lower airways. Asthma episodes, also called asthma attacks or asthma flares, may cause coughing, making high-pitched whistling sounds when you breathe, most often when you breathe out (wheezing), shortness of breath, and chest pain. The airways may produce extra mucus caused by the inflammation and irritation. During an attack, it can be difficult to breathe. Asthma attacks can range from minor to life-threatening. Asthma cannot be cured, but medicines and lifestyle changes can help control it and treat acute attacks. It is important to keep your asthma well controlled so the condition does not interfere with your daily life. What are the causes? This condition is believed to be caused by inherited (genetic) and environmental factors, but its exact cause is not known. What can trigger an asthma attack? Many things can bring on an asthma attack or make symptoms worse. These triggers are different for every person. Common triggers include: ? Allergens and irritants like mold, dust, pet dander, cockroaches, pollen, air pollution, and chemical odors. ? Cigarette smoke. ? Weather changes and cold air. ? Stress and strong emotional responses such as crying or laughing hard. ? Certain medications such as aspirin or beta blockers. ? Infections and inflammatory conditions, such as the flu, a cold, pneumonia, or inflammation of the nasal membranes (rhinitis). ? Gastroesophageal reflux disease (GERD). What are the signs or symptoms? Symptoms may occur right after exposure to an asthma trigger or hours later and can vary by person. Common signs and symptoms include: ? Wheezing. ? Trouble breathing (shortness of breath). ? Excessive nighttime or supervisor heat treating coughing. ? Chest tightness. ? Tiredness (fatigue) with minimal activity. ? Difficulty talking in complete sentences. ? Poor exercise tolerance. How is this diagnosed? This condition is diagnosed based on: ? A physical exam and your medical history. ? Tests, which may include: ? Lung function studies to evaluate the flow of air in your lungs. ? Allergy tests. ? Imaging tests, such as X-rays. How is this treated? There is no cure, but symptoms can be controlled with proper treatment. Treatment usually involves: ? Identifying and avoiding your asthma triggers. ? Inhaled medicines. Two types are commonly used to treat asthma, depending on severity: ? Controller medicines. These help prevent asthma symptoms from occurring. They are taken every day. ? Fast-acting reliever or rescue medicines. These quickly relieve asthma symptoms. They are used as needed and provide short-term relief. ? Using other medicines, such as: ? Allergy medicines, such as antihistamines, if your asthma attacks are triggered by allergens. ? Immune medicines (immunomodulators). These are medicines that help control the immune system. ? Using supplemental oxygen. This is only needed during a severe episode. ? Creating an asthma action plan. An asthma action plan is a written plan for managing and treating your asthma attacks. This plan includes: ? A list of your asthma triggers and how to avoid them. ? Information about when medicines should be taken and when their dosage should be changed. ? Instructions about using a device called a peak flow meter. A peak flow meter measures how well the lungs are working and the severity of your asthma. It helps you monitor your condition. Follow these instructions at home: ? Take [id number]-[id number] and prescription medicines only as told by your health care provider. ? Stay up to date on all vaccinations as recommended by your healthcare provider, including vaccines for the flu and pneumonia. ? Use a peak flow meter and keep track of your peak flow readings. ? Understand and use your asthma action plan to address any asthma flares. ? Do not smoke or allow anyone to smoke in your home. Contact a health care provider if: ? You have wheezing, shortness of breath, or a cough that is not responding to medicines. ? Your medicines are causing side effects, such as a rash, itching, swelling, or trouble breathing. ? You need to use a reliever medicine more than 2?3 times a week. ? Your peak flow reading is still at 50?79% of your personal best after following your action plan for 1 hour. ? You have a fever and shortness of breath. Get help right away if: ? You are getting worse and do not respond to treatment during an asthma attack. ? You are short of breath when at rest or when doing very little physical activity. ? You have difficulty eating, drinking, or talking. ? You have chest pain or tightness. ? You develop a fast heartbeat or palpitations. ? You (more content not included)... Normal [facility] Family Medicine Office/Clini c Noteon 10-04-2023 Family Medicine Office/Clinic Note Chief Complaint Pt presents for urgent Care F/u . C/o cough and phelm, SOB, x rays are clear. HPI Staff _Respiratory C/O: Duration: x 3 weeks Body aches: no Chest congestion: yes Chills: no Cough: yes Ear complaints: no Eye itching/watering: no Fever: no Headache: no Nasal congestion: yes Nasal discharge: no Poor appetite: no Reduced activity: no Sinus pain/pressure: no Sneezing: no Sputum production: yes Wheezing: yes Ill contacts: no Remedies tried: acetaminophen cough medication _ History of Present Illness The patient presents for evaluation of cough. She had chest x-rays and was prescribed with antibiotics and prednisone by Dr. Winters, but she is still coughing. They did not do culture to check for strep or influenza. She took a COVID-19 test when she was in [place], which was negative. She took Mucinex and Flonase when she was in [place]. When she got home, it got worse and that is when she came to see Dr. Winters. Her oxygen saturation has been well. She is not coughing up yellow or green phlegm. She had a fever. She feels pain in the face when she coughs hard. It is worse in the evening. She was blowing her nose hard, and she felt her ear pop and crack. She gets an earache and pressure in that ear afterwards. She does not get any wax out of that ear. When she was in urgent care, she was given albuterol and a breathing machine. She uses a neti pot. She uses VicPOKKT warm steam vaporizer. She was told that she had burned her esophagus from acid reflux when she had an upper and lower GI endoscopy with Dr. Chambers. She has a bed that keeps her head elevated, but she finds that she is better off lying in a recliner. She drinks a lot of tea at night. She has leg edema. She has an artificial knee that is turning 28 years on 11/2023. The vein gets inflamed when her knees swell. When she bears down, she can feel it bulge out. She is supposed to see a vascular doctor. She saw Dr. Forrester because she was having difficulty walking since it seemed like she was putting pressure on her artificial knee. She had a similar problem about 8 years ago and had a local injection with Dr. Grant from [place]. Review of Systems PHQ Score Initial Depression Screen Score: 0 SCORE Physical Exam Vitals & Measurements T: 37 ?C(Temporal Artery) HR: 64(Peripheral) RR: 16 BP: 114/72 SpO2: 93% HT: 60 in HT: 153 cm WT: 84.7 kg WT: 186.34 lb BMI: 36.18 Throat: Clear. She has normal mucous membranes. No swollen glands. Ears: Right eardrum is slightly erythematous with a little bit of wax. Left eardrum is bulging and slightly erythematous. Respiratory: She has diminished breath sounds with wheezing bilaterally. She has a productive cough, but it is clear. Heart: Regular rate and rhythm. Assessment/Plan 1. Acute bacterial bronchitis (J20.8: Acute bronchitis due to other specified organisms) Levaquin 500mg daily 10 days, yogurt fluid rest vitc, keep sat greater 90% and respirations under 20 follow up 1 weeks worsens call 2. BMI 35.0-35.9,adult (Z68.35: Body mass index [BMI] 35.0-35.9, adult) Obesity recommend low fat, low carbo diet. 2000 calorie diet daily. Recommend two small meals and one average meal. Avoid eating after 6 pm. Avoid fast food, sugary drinks, artificial sugars, packaged instant food, candy , cakes and cookies . Shop for all natural food products. Exercise at least 3 days week. Avoid sedentary life style. Increase water intake. Do daily naked weights. Limit stressful life style. Check chol yearly. 3. CAD (coronary artery disease) (I25.10: Atherosclerotic heart disease of [place] coronary artery without angina pectoris) hctz/lisinopril continue aspirin 4. Diabetic polyneuropathy associated with type 2 diabetes mellitus (E11.42: Type 2 diabetes mellitus with diabetic polyneuropathy) diet foot checks, glucophage 500mg bid every 6 months hbaic 5. Ectatic aorta (I77.819: Aortic ectasia, unspecified site) unchanged 6. HTN - Hypertension (I10: Essential (primary) hypertension) see med lsit 7. On statin therapy (Z79.899: Other vermin exterminator (current) drug therapy) atorvastatin 80mg daily low fat diet Other specified bacterial agents as the cause of diseases classified elsewhere (B96.89: Other specified bacterial agents as the cause of diseases classified elsewhere) resolved 8. Sinus infection. I will start her on Levaquin. She was advised to use albuterol at least 3 times a day for the next 10 days. She was advised to eat yogurt with her antibiotics to keep the healthy bacteria in the intestines normal. She was also advised to drink Gatorade and keep herself well hydrated. If her respirations go up over 20 cycles per minute, or if her oxygen saturation goes below 90 percent, she will let us know. I also advised her to sterilize her neti pot in between uses. see number 1 also 9. Varicose veins. She was advised not to remove these. 10. Cough. This could be due to acid (more content not included)... Normal [facility] Comment on above: Result Comment: Electronically Signed By : Mara Hernandez DO\.br\Date and Time Signed: 10/04/23 15:24 EST\.br\Electronically Co-Signed By: Ana Maria Silva\.br\Date and Time Co-Signed: 10/04/23 15:00 EST Patient Educationon 10-04-19 Patient Education Pulmonary Medicine Acute Bronchitis, Adult Acute bronchitis is sudden inflammation of the main airways (bronchi) that come off the windpipe (trachea) in the lungs. The swelling causes the airways to get smaller and make more mucus than normal. This can make it hard to breathe and can cause coughing or noisy breathing (wheezing). Acute bronchitis may last several weeks. The cough may last longer. Allergies, asthma, and exposure to smoke may make the condition worse. What are the causes? This condition can be caused by germs and by substances that irritate the lungs, including: ? Cold and flu viruses. The most common cause of this condition is the virus that causes the common cold. ? Bacteria. This is less common. ? Breathing in substances that irritate the lungs, including: ? Smoke from cigarettes and other forms of tobacco. ? Dust and pollen. ? Fumes from household cleaning products, gases, or burned fuel. ? Indoor or outdoor air pollution. What increases the risk? The following factors may make you more likely to develop this condition: ? A weak body's defense system, also called the immune system. ? A condition that affects your lungs and breathing, such as asthma. What are the signs or symptoms? Common symptoms of this condition include: ? Coughing. This may bring up clear, yellow, or green mucus from your lungs (sputum). ? Wheezing. ? Runny or stuffy nose. ? Having too much mucus in your lungs (chest congestion). ? Shortness of breath. ? Aches and pains, including sore throat or chest. How is this diagnosed? This condition is usually diagnosed based on: ? Your symptoms and medical history. ? A physical exam. You may also have other tests, including tests to rule out other conditions, such as pneumonia. These tests include: ? A test of lung function. ? Test of a mucus sample to look for the presence of bacteria. ? Tests to check the oxygen level in your blood. ? Blood tests. ? Chest X-ray. How is this treated? Most cases of acute bronchitis clear up over time without treatment. Your health care provider may recommend: ? Drinking more fluids to help thin your mucus so it is easier to cough up. ? Taking inhaled medicine (inhaler) to improve air flow in and out of your lungs. ? Using a vaporizer or a humidifier. These are machines that add water to the air to help you breathe better. ? Taking a medicine that thins mucus and clears congestion (expectorant). ? Taking a medicine that prevents or stops coughing (cough suppressant). It is not common to take an antibiotic medicine for this condition. Follow these instructions at home: ? Take rqqs-tyn-bemkjqf and prescription medicines only as told by your health care provider. ? Use an inhaler, vaporizer, or humidifier as told by your health care provider. ? Take two teaspoons (10 mL) of honey at bedtime to lessen coughing at night. ? Drink enough fluid to keep your urine pale yellow. ? Do not use any products that contain nicotine or tobacco. These products include cigarettes, chewing tobacco, and vaping devices, such as e-cigarettes. If you need help quitting, ask your health care provider. ? Get plenty of rest. ? Return to your normal activities as told by your health care provider. Ask your health care provider what activities are safe for you. ? Keep all follow-up visits. This is important. How is this prevented? To lower your risk of getting this condition again: ? Wash your hands often with soap and water for at least 20 seconds. If soap and water are not available, use hand audio/video technician. ? Avoid contact with people who have cold symptoms. ? Try not to touch your mouth, nose, or eyes with your hands. ? Avoid breathing in smoke or chemical fumes. Breathing smoke or chemical fumes will make your condition worse. ? Get the flu shot every year. Contact a health care provider if: ? Your symptoms do not improve after 2 weeks. ? You have trouble coughing up the mucus. ? Your cough keeps you awake at night. ? You have a fever. Get help right away if you: ? Cough up blood. ? Feel pain in your chest. ? Have severe shortness of breath. ? Faint or keep feeling like you are going to faint. ? Have a severe headache. ? Have a fever or chills that get worse. These symptoms may represent a serious problem that is an emergency. Do not wait to see if the symptoms will go away. Get medical help right away. Call your local emergency services (911 in the [place] Do not drive yourself to the hospital. Summary ? Acute bronchitis is inflammation of the main airways (bronchi) that come off the windpipe (trachea) in the lungs. The swelling causes the airways to get smaller and make more mucus than normal. ? Drinking more fluids can help thin your mucus so it is easier to cough up. ? Take jhvk-vmt-szhfyox and prescription medici (more content not included)... Normal [facility] [place] 09-26-2023 Consent [id number] Normal [facility] Ambulatory Visit Summaryon 0 09-25-2023 Ambulatory Visit Summary CARLOS A SOW :1945 Visit Date:09/25/2023 Ambulatory Visit Instructions Your Diagnosis BMI 35.0-35.9,adult Your Care Team Attending Physician - Ti BIANCHI, Colton Vicente Primary Care Physician - Octavio WINTERS MD This Is Your Medications List Contact prescribing physician if questions or concerns Misc Prescription (Glucometer test strips) Misc Prescription (Handicap placard) Misc Prescription (Lancets) Misc Prescription (Misc DME Prescription) Misc Prescription (Misc DME Prescription) Turmeric albuterol (Albuterol (Eqv-Proventil HFA) 90 mcg/inh inhalation aerosol) ascorbic acid (Vitamin C) atorvastatin (atorvastatin 80 mg Tab) calcium carbonate (calcium 500 mg tablet) cefdinir (cefdinir 300 mg Cap) cholecalciferol (Vitamin D3 2000 intl units) famotidine (famotidine 40 mg Tab) hydrochlorothiazide-tk nopril (hydrochlorothiazide-lis inopril 25 mg-20 mg Tab) metformin (metformin 500 mg Tab) multivitamin with minerals (Multivitamins and Minerals) pantoprazole (Pantoprazole [address] Tab) triamcinolone topical (triamcinolone topical 0.5% cream) zinc sulfate (Zinc) Procedures Performed Carpal tunnel release (01/24/2021), Colonoscopy (08/06/2013), Bunionectomy (12/14/2009), 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 Discharge Vitals Temperature (Oral) 37.4 ?C Heart Rate (Peripheral) 98 Blood Pressure 128/76 Height 153 cm Height 60 in Weight 83.2 kg Weight 183.04 lb BMI 35.54 What to do next Scheduled Follow-Up Appointments Sunday 11:00 AM EST With: Where: [facility] [place] [address] [facility] [place] [id number]- \.br\ You Need to Schedule the Following Appointments\.br\ Follow Up with JOSHUA LUCAS, OSCAR Mc When: \.br\ Where:\.br\ [address] [facility]\.br\ [place] [address]-\.br\ \.br\ Medications\.br\ What How Much When Instructions\.br\ Unchanged albuterol (Albuterol (Eqv-Proventil HFA) 90 mcg/ inh inhalation aerosol) 2 Puffs Inhalation Every 6 hours Contact prescribing physician if questions or concerns \.br\ Unchanged ascorbic acid (Vitamin C) See instructions patient gets OTC, not prescribed Contact prescribing physician if questions or concerns \.br\ Unchanged atorvastatin (atorvastatin 80 mg Tab) 1 Tablets By Mouth Every day Contact prescribing physician if questions or concerns \.br\ Unchanged calcium carbonate (calcium 500 mg tablet) See instructions patient gets OTC, not prescribed Contact prescribing physician if questions or concerns \.br\ Unchanged cefdinir (cefdinir 300 mg Cap) 1 Capsules By Mouth Every 12 hours Duration: 10 Days Contact prescribing physician if questions or concerns \.br\ Unchanged cholecalciferol (Vitamin D3 2000 intl units) See instructions Patient gets OTC, not prescribed Contact prescribing physician if questions or concerns \.br\ Unchanged famotidine (famotidine 40 mg Tab) 1 Tablets By Mouth Once a day (at bedtime) Contact prescribing physician if questions or concerns \.br\ Unchanged hydrochlorothiazid e-lisinopril (hydrochlorothiazi de-lisinopril 25 mg-20 mg Tab) 1 Tablets By Mouth Every day Contact prescribing physician if questions or concerns \.br\ Unchanged metformin (metformin 500 mg Tab) 1 Tablets By Mouth 2 times a day Contact prescribing physician if questions or concerns \.br\ Unchanged Misc Prescription (Glucometer test strips) See instructions Test blood sugar daily DX E11.69 Contact prescribing physician if questions or concerns \.br\ Unchanged Misc Prescription (Handicap placard) See instructions Duration 5 years Contact prescribing physician if questions or concerns \.br\ Unchanged Misc Prescription (Lancets) See instructions Test blood sugar daily DX E11.69 Contact prescribing physician if questions or concerns \.br\ Unchanged Misc Prescription (Misc DME Prescription) See instructions freestyle lite test in vitro strip, one QD, dx e11.9 Contact prescribing physician if questions or concerns \.br\ Unchanged Misc Prescription (Misc DME Prescription) See instructions freestyle lancets, one QD, dx e11.9 Contact prescribing physician if questions or concerns \.br\ Unchanged multivitamin with minerals (Multivitamins and Minerals) Contact prescribing physician if questions or concerns \.br\ Unchanged pantoprazole (Pantoprazole [address] Tab) 1 Tablets By Mouth Every day take 30 minutes prior to one meal daily Contact prescribing physician if questions or concerns \.br\ Unchanged triamcinolone topical (triamcinolone topical 0.5% cream) 1 Application Topical 2 times a day Contact prescribing physician if questions or concerns \.br\ Unchanged Turmeric 500 Milligram By Mouth Every day Contact prescribing physician if questions or concerns \.br\ Unchanged zinc sulfate (Zinc) See instructions Patient gets OTC, not prescribed Contact prescribing physician if questions or concerns \.br\ Medications and Immunizations Administered\.br\ Given\.br\ DuoNeb 2.5 mg-0.5 mg/3 mL Soln-Inh, 3 mL, NEB. For: BMI 35.0-35.9,adult\.b r\ Allergies\.br\ Biaxin (Nausea, vomiting and diarrhea)\.br\ Daypro (Nausea, vomiting and diarrhea)\.br\ Naprosyn\.br\ Propulsid (Unspecified)\.br\ Problems\.br\ Ongoing - Any problem that you are currently receiving treatment for.\.br\ Action tremor\.br\ Acute bacterial bronchitis\.br\ Allergy to environmental factors\.br\ At risk for falls\.br\ BMI 35.0-35.9,adult\.b r\ CAD (coronary artery disease)\.br\ Carpal tunnel syndrome, left upper limb\.br\ Diabetic polyneuropathy associated with type 2 diabetes mellitus\.br\ DJD (degenerative joint disease)\.br\ Ectatic aorta\.br\ Eczema\.br\ 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\.br\ Gait disturbance\.br\ GERD (gastroesophageal reflux disease)\.br\ HTN - Hypertension\.br\ Impingement syndrome of right shoulder\.br\ Insomnia\.br\ Intermittent asthma with acute exacerbation\.br\ Left lumbar radiculopathy\.br\ [facility] current use of oral hypoglycemic drug\.br\ Meniere disease\.br\ Mild persistent asthma\.br\ Mixed hyperlipidemia\.br \ Mixed stress and urge urinary incontinence\.br\ Morbid obesity\.br\ On statin therapy\.br\ Right cervical radiculopathy\.br\ Type 2 diabetes mellitus with hyperlipidemia\.br \ Type 2 diabetes mellitus with morbid obesity\.br\ Varicose veins of bilateral lower extremities with other complications\.br\ Varicose veins of lower extremities with inflammation\.br\ Varicose veins of right lower extremity with pain\.br\ Venous insufficiency of right leg\.br\ Historical - Any problem that you are no longer receiving treatment for.\.br\ borderline diabetic\.br\ Factor 5 Leiden mutation\.br\ History of - hypercholesterolem ia\.br\ hypertension\.br\ Obesity (BMI 30-39.9)\.br\ Reactive airway disease\.br\ Screening mammogram, encounter for\.br\ Patient Survey\.br\ You may receive a survey via text or e-mail asking about your office visit. Please share your experience with us by completing your survey. We appreciate your feedback and thank you for choosing us for your care.\.br\ Education Materials\.br\ BMI for Adults\.br\ What is BMI?\.br\ Body mass index (BMI) is a number that is calculated from a person's weight and height. BMI can help estimate how much of a person's weight is composed of fat. BMI does not measure body fat directly. Rather, it is an alternative to procedures that directly measure body fat, which can be difficult and expensive.\.br\ BMI can help identify people who may be at higher risk for certain medical problems.\.br\ What are BMI measurements used for?\.br\ BMI is used as a screening tool to identify possible weight problems. It helps determine whether a person is obese, overweight, a healthy weight, or underweight.\.br\ BMI is useful for:\.br\ ? \.br\ Identifying a weight problem that may be related to a medical condition or may increase the risk for medical problems.\.br\ ? \.br\ Promoting changes, such as changes in diet and exercise, to help reach a healthy weight. BMI screening can be repeated to see if these changes are working.\.br\ How is BMI calculated?\.br\ BMI involves measuring your weight in relation to your height. Both height and weight are measured, and the BMI is calculated from those numbers. This can be done either in [place] or metric measurements. Note that charts and online BMI calculators are available to help you find your BMI quickly and easily without having to do these calculations yourself.\.br\ To calculate your BMI in [place] measurements:\.br\ \.br\ 1. \.br\ Measure your weight in pounds (lb).\.br\ 2. \.br\ Multiply the number of pounds by 703.\.br\ ? \.br\ For example, for a person who weighs 180 lb, multiply that number by 703, which equals 126,540.\.br\ 3. \.br\ Measure your height in inches. Then multiply that number by itself to get a measurement called inches squared. \.br\ ? \.br\ For example, for a person who is 70 inches tall, the inches squared measurement is 70 inches x 70 inches, which equals 4,900 inches squared.\.br\ 4. \.br\ Divide the total from step 2 (number of lb x 703) by the total from step 3 (inches squared): 126,540 ? 4,900 = 25.8. This is your BMI.\ [facility] Family Medicine Office/Clini c Noteon 09-25-2023 Family Medicine Office/Clinic Note Chief Complaint Current pt cough, congestion, wheezing, HPI Staff 78 yo female here today with wheezing and cough Pt saw PCP-prednisone- Sunday last dose, inhaler, cefdinir Symptoms began 2/ Complains of cough, sinus congestion, wheezing, Pt went to [place] -tested for COVID- negative Pt has been taking mucinex, flonase History of Present Illness I have reviewed and verified the staff HPI to be accurate for this encounter. Portions of this record have been created with voice recognition software. Occasional wrong-word or ?vpjya-x-hlti? substitutions may have occurred due to the inherent limitations of voice recognition software. 78 yo female with history of diabetes, coronary artery disease, hypertension, morbid obesity presents today with cc of cough and wheezing. Patient was seen and evaluated by primary care provider approximately 5 days ago at that time was treated for acute bacterial bronchitis with exacerbation of intermittent asthma. Symptoms at that time had been ongoing x 1 week with a productive cough that is productive of thick white phlegm she also noted sinus congestion and drainage occasional shortness of breath and wheezing. States at that time she had a home COVID-19 test that was negative on 13 September, when she was in [place]. States one of her cousins she was visiting had cold like symptoms as well. She was treated by primary care provider on the with a brief course of steroids, inhaler as well as antibiotic to cover both sinuses and upper respiratory tract in addition to cefdinir twice daily x 10 days duration. Patient took her last dose of prednisone 40 mg on Sunday she has been using her inhaler as needed the symptoms overall began on the , almost 2 weeks ago. States that she has continued with cough sinus congestion and wheezing. Patient states she is also been using [id number] Mucinex and Flonase for symptoms. Patient states that albuterol helps on occasion with wheezing but states she is still wheezing at times at night. She denies any diagnosis or history of asthma or COPD. Denies smoking history. Review of Systems PHQ Score Initial Depression Screen Score: 0 SCORE ROS negative unless otherwise stated in HPI. Physical Exam Vitals & Measurements T: 37.4 ?C(Oral) HR: 98(Peripheral) BP: 128/76 SpO2: 93% HT: 60 in HT: 153 cm WT: 83.2 kg WT: 183.04 lb BMI: 35.54 General: Pleasant obese elderly female, no acute distress Eyes: Bilateral conjunctiva within normal limits no injection Ears: Bilateral TMs are within normal limits no erythema or bulging. Bilateral external auditory canals are within normal limits no erythema or edema. Nose: mild nasal mucosa inflammation and edema no active drainage deformities or lesions. Mouth: Moist mucous membranes. No acute tonsillar erythema edema or exudate. No signs of peritonsillar abscess. No trismus or drooling. Uvula is midline. Neck: no adenopathy Lungs: Symmetrical expansion bilaterally. Patient has wheezing throughout bilateral lower lung paz with crackles in bilateral lower lung bases without rhonchi. No concerns for respiratory distress no respiratory retractions patient does not appear to be working to breathe. Able to speak in full sentences. Cardio: S1, S2, regular rhythm. No murmurs gallops or rubs. Abdomen: not assessed Musculoskeletal: not assessed Extremity: not assessed Neurologic: not assessed Skin: not assessed Mental Status: Alert and oriented x3. Normal mood and affect Assessment/Plan I spoke with patient and given her duration of symptoms x 2 weeks we will obtain a two-view chest x-ray today at this time. Will treat patient with a DuoNeb nebulizer treatment in office to see if this helps with wheezing. Patient is 93% on room air today. The patient denies fever or chills over the past 3 to 5 days is wondering if her antibiotics are not strong enough she did complete the 40 mg prednisone daily x 5 days yesterday. Does have a history of type 2 diabetes. She denies history of asthma or COPD. Denies smoking history. She does have a nebulizer machine at home. Has been using the albuterol inhaler she states with some improvement. Chest x-ray is negative for pneumonia. I updated patient in regards to this negative result no acute cardiopulmonary abnormality. I spoke with patient in regards to sending a prescription for albuterol for her nebulizer machine at home as following DuoNeb treatment in office today she had great improvement of wheezing. I believe patient would benefit from use of her nebulizer at home as oxygen saturation came up to 98% on room air. I did offer patient a cough suppressant such as Tessalon which she states she believes she has had those before and it did not work. Patient would like a change in antibiotic at this time as she states she is been taking it for 5 days without improvement. I discussed with the patient that we could change antibiotic to doxycycline twice daily x 7 days duration with close follow-up wit (more content not included)... Normal [facility] Comment on above: Result Comment: Electronically Signed By : Ti BIANCHI, Colton Vicente\.lakeshia\Date and Time Signed: 09/25/23 17:45 EST Patient Educationon 09-25-19 24 Patient Education BMI for Adults What is BMI? Body mass index (BMI) is a number that is calculated from a person's weight and height. BMI can help estimate how much of a person's weight is composed of fat. BMI does not measure body fat directly. Rather, it is an alternative to procedures that directly measure body fat, which can be difficult and expensive. BMI can help identify people who may be at higher risk for certain medical problems. What are BMI measurements used for? BMI is used as a screening tool to identify possible weight problems. It helps determine whether a person is obese, overweight, a healthy weight, or underweight. BMI is useful for: ? Identifying a weight problem that may be related to a medical condition or may increase the risk for medical problems. ? Promoting changes, such as changes in diet and exercise, to help reach a healthy weight. BMI screening can be repeated to see if these changes are working. How is BMI calculated? BMI involves measuring your weight in relation to your height. Both height and weight are measured, and the BMI is calculated from those numbers. This can be done either in [place] or metric measurements. Note that charts and online BMI calculators are available to help you find your BMI quickly and easily without having to do these calculations yourself. To calculate your BMI in [place] measurements: 1. Measure your weight in pounds (lb). 2. Multiply the number of pounds by 703. ? For example, for a person who weighs 180 lb, multiply that number by 703, which equals 126,540. 3. Measure your height in inches. Then multiply that number by itself to get a measurement called inches squared. ? For example, for a person who is 70 inches tall, the inches squared measurement is 70 inches x 70 inches, which equals 4,900 inches squared. 4. Divide the total from step 2 (number of lb x 703) by the total from step 3 (inches squared): 126,540 ? 4,900 = 25.8. This is your BMI. To calculate your BMI in metric measurements: 1. Measure your weight in kilograms (kg). 2. Measure your height in meters (m). Then multiply that number by itself to get a measurement called meters squared. ? For example, for a person who is 1.75 m tall, the meters squared measurement is 1.75 m x 1.75 m, which is equal to 3.1 meters squared. 3. Divide the number of kilograms (your weight) by the meters squared number. In this example: 70 ? 3.1 = 22.6. This is your BMI. What do the results mean? BMI charts are used to identify whether you are underweight, normal weight, overweight, or obese. The following guidelines will be used: ? Underweight: BMI less than 18.5. ? Normal weight: BMI between 18.5 and 24.9. ? Overweight: BMI between 25 and 29.9. ? Obese: BMI of 30 or above. Keep these notes in mind: ? Weight includes both fat and muscle, so someone with a muscular build, such as an athlete, may have a BMI that is higher than 24.9. In cases like these, BMI is not an accurate measure of body fat. ? To determine if excess body fat is the cause of a BMI of 25 or higher, further assessments may need to be done by a health care provider. ? BMI is usually interpreted in the same way for men and women. Where to find more information For more information about BMI, including tools to quickly calculate your BMI, go to these websites: ? Centers for Disease Control and Prevention: www.cdc.gov ? [place] Heart Association: www.heart.org ? National Heart, Lung, and Blood [place]: www.nhlbi.nih.gov Summary ? Body mass index (BMI) is a number that is calculated from a person's weight and height. ? BMI may help estimate how much of a person's weight is composed of fat. BMI can help identify those who may be at higher risk for certain medical problems. ? BMI can be measured using [place] measurements or metric measurements. ? BMI charts are used to identify whether you are underweight, normal weight, overweight, or obese. This information is not intended to replace advice given to you by your health care provider. Make sure you discuss any questions you have with your health care provider. Document Revised: 04/14/2020 Document Reviewed: 02/20/2020 [employer] Patient Education ? 2022 [employer] Nutrition BMI for Adults What is BMI? Body mass index (BMI) is a number that is calculated from a person's weight and height. BMI can help estimate how much of a person's weight is composed of fat. BMI does not measure body fat directly. Rather, it is an alternative to procedures that directly measure body fat, which can be difficult and expensive. BMI can help identify people who may be at higher risk for certain medical problems. What are BMI measurements used for? BMI is used as a screening tool to identify possible weight problems. It helps determine whether a person is obese, overweight, a healthy weight, or underweight. BMI is useful for: ? Identifying a weight problem that may be (more content not included)... Normal [facility] XR Chest 2 Viewson XR Chest 2 Views Exam Date/Time: 09/25/2023 17:08 EST Reason for Exam: cough x 2 weeks, with wheezing;Cough Report IMPRESSION: NO RADIOGRAPHIC EVIDENCE OF ACUTE INTRATHORACIC PROCESS. EXAMINATION: XR Chest 2 Views HISTORY: Cough and shortness of breath. TECHNIQUE: Frontal and lateral views of the chest. COMPARISON: Chest radiograph 04/17/2023 FINDINGS: Cardiomediastinal silhouette is within normal limits. No pneumothorax, pleural effusion, or consolidation. Degenerative changes of the spine. No acute osseous abnormality. Ordering Provider: Colton Luke FINAL REPORT Dictated: 09/25/2023 5:16 pm Daniela Mcdonald DO Signed (Electronic Signature): 09/25/2023 5:16 pm Signed by: Daniela Mcdonald DO Transcribed by: MIKE Technologist: MESSI Technical Comments Radiation Dose: Ka,r in mGy = . DAP = . Normal [facility] Ambulatory Visit Summaryon 0 09-20-2023 Ambulatory Visit Summary CARLOS A SOW :1945 Visit Date:09/20/2023 Ambulatory Visit Instructions Your Diagnosis Acute bacterial bronchitis Intermittent asthma with acute exacerbation Diabetic polyneuropathy associated with type 2 diabetes mellitus HTN - Hypertension Morbid obesity BMI 35.0-35.9,adult Other specified bacterial agents as the cause of diseases classified elsewhere Your Care Team Attending Physician - Octavio WINTERS MD Primary Care Physician - Octavio WINTERS MD This Is Your Medications List albuterol (Albuterol (Eqv-Proventil HFA) 90 mcg/inh inhalation aerosol) cefdinir (cefdinir 300 mg Cap) predniSONE (predniSONE 20 mg Tab) Contact prescribing physician if questions or concerns Misc Prescription (Glucometer test strips) Misc Prescription (Handicap placard) Misc Prescription (Lancets) Misc Prescription (Misc DME Prescription) Misc Prescription (Misc DME Prescription) Turmeric ascorbic acid (Vitamin C) atorvastatin (atorvastatin 80 mg Tab) calcium carbonate (calcium 500 mg tablet) cholecalciferol (Vitamin D3 2000 intl units) famotidine (famotidine 40 mg Tab) hydrochlorothiazide-tk nopril (hydrochlorothiazide-lis inopril 25 mg-20 mg Tab) metformin (metformin 500 mg Tab) multivitamin with minerals (Multivitamins and Minerals) pantoprazole (Pantoprazole [address] Tab) triamcinolone topical (triamcinolone topical 0.5% cream) zinc sulfate (Zinc) Procedures Performed Carpal tunnel release (01/24/2021), Colonoscopy (08/06/2013), Bunionectomy (12/14/2009), 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 Discharge Vitals Temperature (Temporal Artery) 36.6 ?C Heart Rate (Peripheral) 88 Respiratory Rate 16 Blood Pressure 134/80 Height 153 cm Height 60 in Weight 83.7 kg Weight 184.14 lb BMI 35.76 What to do next Scheduled Follow-Up Appointments Sunday 11:00 AM EST With: Where: [facility] [address] [address]- \.br\ Medications\.br\ What How Much When Instructions\.br\ New albuterol (Albuterol (Eqv-Proventil HFA) 90 mcg/ inh inhalation aerosol) 2 Puffs Inhalation Every 6 hours Pickup at [facility] 1985\.br\ New cefdinir (cefdinir 300 mg Cap) 1 Capsules By Mouth Every 12 hours Duration: 10 Days Pickup at [facility] 1985\.br\ New predniSONE (predniSONE 20 mg Tab) 2 Tablets By Mouth Every day Duration: 5 Days Pickup at [facility]\.br\ Unchanged ascorbic acid (Vitamin C) See instructions patient gets OTC, not prescribed Contact prescribing physician if questions or concerns \.br\ Unchanged atorvastatin (atorvastatin 80 mg Tab) 1 Tablets By Mouth Every day Contact prescribing physician if questions or concerns \.br\ Unchanged calcium carbonate (calcium 500 mg tablet) See instructions patient gets OTC, not prescribed Contact prescribing physician if questions or concerns \.br\ Unchanged cholecalciferol (Vitamin D3 2000 intl units) See instructions Patient gets OTC, not prescribed Contact prescribing physician if questions or concerns \.br\ Unchanged famotidine (famotidine 40 mg Tab) 1 Tablets By Mouth Once a day (at bedtime) Contact prescribing physician if questions or concerns \.br\ Unchanged hydrochlorothiazid e-lisinopril (hydrochlorothiazi de-lisinopril 25 mg-20 mg Tab) 1 Tablets By Mouth Every day Contact prescribing physician if questions or concerns \.br\ Unchanged metformin (metformin 500 mg Tab) 1 Tablets By Mouth 2 times a day Contact prescribing physician if questions or concerns \.br\ Unchanged Misc Prescription (Glucometer test strips) See instructions Test blood sugar daily DX E11.69 Contact prescribing physician if questions or concerns \.br\ Unchanged Misc Prescription (Handicap placard) See instructions Duration 5 years Contact prescribing physician if questions or concerns \.br\ Unchanged Misc Prescription (Lancets) See instructions Test blood sugar daily DX E11.69 Contact prescribing physician if questions or concerns \.br\ Unchanged Misc Prescription (Misc DME Prescription) See instructions freestyle lite test in vitro strip, one QD, dx e11.9 Contact prescribing physician if questions or concerns \.br\ Unchanged Misc Prescription (Misc DME Prescription) See instructions freestyle lancets, one QD, dx e11.9 Contact prescribing physician if questions or concerns \.br\ Unchanged multivitamin with minerals (Multivitamins and Minerals) Contact prescribing physician if questions or concerns \.br\ Unchanged pantoprazole (Pantoprazole [address] Tab) 1 Tablets By Mouth Every day take 30 minutes prior to one meal daily Contact prescribing physician if questions or concerns \.br\ Unchanged triamcinolone topical (triamcinolone topical 0.5% cream) 1 Application Topical 2 times a day Contact prescribing physician if questions or concerns \.br\ Unchanged Turmeric 500 Milligram By Mouth Every day Contact prescribing physician if questions or concerns \.br\ Unchanged zinc sulfate (Zinc) See instructions Patient gets OTC, not prescribed Contact prescribing physician if questions or concerns \.br\ Pharmacy Information\.br\ [facility] 1986: [address] [place], [place] [id number] [phone]\.br\ Allergies\.br\ Biaxin (Nausea, vomiting and diarrhea)\.br\ Daypro (Nausea, vomiting and diarrhea)\.br\ Naprosyn\.br\ Propulsid (Unspecified)\.br\ Problems\.br\ Ongoing - Any problem that you are currently receiving treatment for.\.br\ Action tremor\.br\ Acute bacterial bronchitis\.br\ Allergy to environmental factors\.br\ At risk for falls\.br\ BMI 35.0-35.9,adult\.b r\ CAD (coronary artery disease)\.br\ Carpal tunnel syndrome, left upper limb\.br\ Diabetic polyneuropathy associated with type 2 diabetes mellitus\.br\ DJD (degenerative joint disease)\.br\ Ectatic aorta\.br\ Eczema\.br\ 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\.br\ Gait disturbance\.br\ GERD (gastroesophageal reflux disease)\.br\ HTN - Hypertension\.br\ Impingement syndrome of right shoulder\.br\ Insomnia\.br\ Intermittent asthma with acute exacerbation\.br\ Left lumbar radiculopathy\.br\ MCFP current use of oral hypoglycemic drug\.br\ Meniere disease\.br\ Mild persistent asthma\.br\ Mixed hyperlipidemia\.br \ Mixed stress and urge urinary incontinence\.br\ Morbid obesity\.br\ On statin therapy\.br\ Right cervical radiculopathy\.br\ Type 2 diabetes mellitus with hyperlipidemia\.br \ Type 2 diabetes mellitus with morbid obesity\.br\ Varicose veins of bilateral lower extremities with other complications\.br\ Varicose veins of lower extremities with inflammation\.br\ Varicose veins of right lower extremity with pain\.br\ Venous insufficiency of right leg\.br\ Historical - Any problem that you are no longer receiving treatment for.\.br\ borderline diabetic\.br\ Factor 5 Leiden mutation\.br\ History of - hypercholesterolem ia\.br\ hypertension\.br\ Obesity (BMI 30-39.9)\.br\ Reactive airway disease\.br\ Screening mammogram, encounter for\.br\ Patient Survey\.br\ You may receive a survey via text or e-mail asking about your office visit. Please share your experience with us by completing your survey. We appreciate your feedback and thank you for choosing us for your care.\.br\ Education Materials\.br\ Acute Bronchitis, Adult\.br\ \.br\ Acute bronchitis is sudden inflammation of the main airways (bronchi) that come off the windpipe (trachea) in the lungs. The swelling causes the airways to get smaller and make more mucus than normal. This can make it hard to breathe and can cause coughing or noisy breathing (wheezing).\.br\ Acute bronchitis may last several weeks. The cough may last longer. Allergies, asthma, and exposure to smoke may make the condition worse.\.br\ What are the causes?\.br\ This condition can be caused by germs and by substances that irritate the lungs, including:\.br\ ? \.br\ Cold and flu viruses. The most common cause of this condition is the virus that causes the common cold.\.br\ ? \.br\ Bacteria. This is less common.\.br\ ? \.br\ Breathing in substances that irritate the lungs, including:\.br\ ? \.br\ Smoke from cigarettes and other forms of tobacco.\.br\ ? \.br\ Dust and pollen.\.br\ ? \.br\ Fumes from household cleaning products, gases, or burned fuel.\.br\ ? \.br\ Indoor or outdoor air pollution.\.br\ What increases the risk?\.br\ The following factors may make you more likely to develop this condition:\.br\ ? \.br\ A weak body's defense system, also called the immune system.\.br\ ? \.br\ A condition that affects your lungs and breathing, such as asthma.\.br\ What are the signs or symptoms?\.br\ Common symptoms of this condition include:\.br\ ? \.br\ Coughing. This may bring up clear, yellow, or green mucus from your lungs (sputum).\.br\ ? \.br\ Wheezing.\.br\ ? \.br\ Runny or stuffy nose.\.br\ ? \.br\ Having too much mucus in your lungs (chest congestion).\.br\ ? \.br\ Shortness of breath.\.br\ ? \.br\ Aches and pains, including sore throat or chest.\.br\ How is this diagnosed?\.br\ This condition is usually diagnosed based on:\.br\ ? \.br\ Your symptoms and medical history.\.br\ ? \.br\ A physical exam.\.br\ You may also have other tests, including tests to rule out other conditions, such as pneumonia. These tests include:\.br\ ? \.br\ A test of lung function.\.br\ ? \.br\ Test of a mucus sample to look for the presence of bacteria.\.br\ ? \.br\ Tests to check the oxygen level in your blood [facility] Family Medicine Office/Clini c Noteon 09-20-2023 Family Medicine Office/Clinic Note Chief Complaint pt presents today c/o prod cough of thick white phlegm x 1wk, sinus congestion/drainage, SOB, acid reflux. denies fevers. neg home covid test 09/13/23 History of Present Illness This is a 77-year-old female with respiratory illness. She went to [place] last week and thinks she picked up the illness on Sunday. She started coughing on . She denies any fevers, but has had night sweats. Tested negative for COVID at home. She denies any vomiting or diarrhea. She thinks it is all respiratory. She coughs so hard that she feels nauseous. She brings up thick white phlegm. She has 4 great grandsons and does not share any of her germs. Has a birthday scheduled for her 78th birthday this coming . She has been using Mucinex at home. Appetite remains fair. Accu-Cheks have not been consistently followed. Denies any acute symptoms of hyperglycemia such as polyuria polydipsia. No chest pains or palpitations. Has longstanding history of mild intermittent asthma. Not using any daily inhalers. She never had any problems with prednisone. She used an albuterol inhaler when she had COVID-19 infection fall 2021. She started taking vitamin D3 and zinc when COVID-19 started. Questions if this could cause problems with urinary incontinence. Review of Systems PHQ Score Initial Depression Screen Score: 0 SCORE See HPI otherwise negative Physical Exam Vitals & Measurements T: 36.6 ?C(Temporal Artery) HR: 88(Peripheral) RR: 16 BP: 134/80 SpO2: 95% HT: 60 in HT: 153 cm WT: 83.7 kg WT: 184.14 lb BMI: 35.76 The patient is uncomfortable, but adequately hydrated. Normocephalic, atraumatic. She is wearing corrective clears. TMs retracted, small amount of cerumen, grossly normal hearing. Nares are swollen with boggy turbinates. No significant septal deviation. Pale, yellow rhinorrhea. Oropharynx has huge torus palatini bilaterally on the roof of the mouth. There is some cobblestoning. Fair dentition with repairs. Without adenopathy. Auscultation of the lungs has expiratory wheezing throughout. No discrete rhonchi, but she coughs with every inspiration. Not using any abdominal muscles for breathing. Distant S1, S2 with a regular rate and rhythm. No discrete murmur, gallop, or rub. Abdomen is overweight. Hyperactive bowel sounds. Deeply tanned. Adequate turgor. Reasonable insight. Assessment/Plan 1. Acute bacterial bronchitis (J20.8: Acute bronchitis due to other specified organisms) Strong suspicion that this started out as a viral infection but now the persistence and the severity think it could possibly be bacterial therefore we will offer antibiotic to cover sinuses and lower respiratory tract. No indication for chest x-ray unless symptoms worsen. She is agreeable to a brief course of prednisone with meals understanding risk and benefit of use in light of her diabetes. 2. Intermittent asthma with acute exacerbation (J45.21: Mild intermittent asthma with (acute) exacerbation) Albuterol inhaler as prescribed 2 puffs 4 times daily. See problem 1 understands the need for which to seek emergent care with acute worsening 3. Diabetic polyneuropathy associated with type 2 diabetes mellitus (E11.42: Type 2 diabetes mellitus with diabetic polyneuropathy) Continue metformin. Remain vigilant for hypoglycemia with the prednisone understands that this may last for up to 10 days 4. HTN - Hypertension (I10: Essential (primary) hypertension) The importance of the following were all reviewed with the patient: -Take Rx(s )as prescribed. There are simple Lifestyle Modifications that you can do to reduce your blood pressure. -Weight Reduction -Follow the DASH eating plan. More information about this eating plan can be found here: https://www.nhlbi.nih.go v/health/health-topics/t opics/dash -Reduce Sodium (Salt) Intake to 2000mg per day. -Use Moderation when consuming alcohol. - To improve your health we recommend increasing your level of moderate exercise to at least 2.5 hrs per week. For more information, please visit the CDC Exercise and Fitness Recommendations at www.cdc.gov/physicalacti vity/basics/index.htm 5. Morbid obesity (E66.01: Morbid (severe) obesity due to excess calories) The standard range for ages 18 and older is >=18.5 and < 25 kg/m2. Your BMI today was above this range, this falls in the overweight to obese category and there are medical benefits to weight loss. We can offer counselling, referral, and/or medical support in addressing this problem. Your BMI and weight management will be followed at subsequent visits. 6. BMI 35.0-35.9,adult (Z68.35: Body mass index [BMI] 35.0-35.9, adult) See #5 Orders: albuterol, = 2 puff(s), Inhalation, q6hr, # 6.7 gm, Refills(s) 0, [facility], 153, cm, 09/20/23 15:16:00 EST, Height/Length Dosing, 83.7, kg, 09/20/23 15:16:00 EST, Weight Dosing cefdinir, 300 mg = 1 cap(s), Oral, q12hr, X 10 day(s), # 20 cap(s), Refills(s) 0, [facility], 153, cm, 09/20/23 (more content not included)... Normal [facility] Comment on above: Result Comment: Electronically Signed By : JOSHUA LUCAS, Octavio\.br\Date and Time Signed: 09/20/23 15:38 EST Patient Educationon 09-20-19 Patient Education Pulmonary Medicine Acute Bronchitis, Adult Acute bronchitis is sudden inflammation of the main airways (bronchi) that come off the windpipe (trachea) in the lungs. The swelling causes the airways to get smaller and make more mucus than normal. This can make it hard to breathe and can cause coughing or noisy breathing (wheezing). Acute bronchitis may last several weeks. The cough may last longer. Allergies, asthma, and exposure to smoke may make the condition worse. What are the causes? This condition can be caused by germs and by substances that irritate the lungs, including: ? Cold and flu viruses. The most common cause of this condition is the virus that causes the common cold. ? Bacteria. This is less common. ? Breathing in substances that irritate the lungs, including: ? Smoke from cigarettes and other forms of tobacco. ? Dust and pollen. ? Fumes from household cleaning products, gases, or burned fuel. ? Indoor or outdoor air pollution. What increases the risk? The following factors may make you more likely to develop this condition: ? A weak body's defense system, also called the immune system. ? A condition that affects your lungs and breathing, such as asthma. What are the signs or symptoms? Common symptoms of this condition include: ? Coughing. This may bring up clear, yellow, or green mucus from your lungs (sputum). ? Wheezing. ? Runny or stuffy nose. ? Having too much mucus in your lungs (chest congestion). ? Shortness of breath. ? Aches and pains, including sore throat or chest. How is this diagnosed? This condition is usually diagnosed based on: ? Your symptoms and medical history. ? A physical exam. You may also have other tests, including tests to rule out other conditions, such as pneumonia. These tests include: ? A test of lung function. ? Test of a mucus sample to look for the presence of bacteria. ? Tests to check the oxygen level in your blood. ? Blood tests. ? Chest X-ray. How is this treated? Most cases of acute bronchitis clear up over time without treatment. Your health care provider may recommend: ? Drinking more fluids to help thin your mucus so it is easier to cough up. ? Taking inhaled medicine (inhaler) to improve air flow in and out of your lungs. ? Using a vaporizer or a humidifier. These are machines that add water to the air to help you breathe better. ? Taking a medicine that thins mucus and clears congestion (expectorant). ? Taking a medicine that prevents or stops coughing (cough suppressant). It is not common to take an antibiotic medicine for this condition. Follow these instructions at home: ? Take bliq-oop-otmipjg and prescription medicines only as told by your health care provider. ? Use an inhaler, vaporizer, or humidifier as told by your health care provider. ? Take two teaspoons (10 mL) of honey at bedtime to lessen coughing at night. ? Drink enough fluid to keep your urine pale yellow. ? Do not use any products that contain nicotine or tobacco. These products include cigarettes, chewing tobacco, and vaping devices, such as e-cigarettes. If you need help quitting, ask your health care provider. ? Get plenty of rest. ? Return to your normal activities as told by your health care provider. Ask your health care provider what activities are safe for you. ? Keep all follow-up visits. This is important. How is this prevented? To lower your risk of getting this condition again: ? Wash your hands often with soap and water for at least 20 seconds. If soap and water are not available, use hand audio/video technician. ? Avoid contact with people who have cold symptoms. ? Try not to touch your mouth, nose, or eyes with your hands. ? Avoid breathing in smoke or chemical fumes. Breathing smoke or chemical fumes will make your condition worse. ? Get the flu shot every year. Contact a health care provider if: ? Your symptoms do not improve after 2 weeks. ? You have trouble coughing up the mucus. ? Your cough keeps you awake at night. ? You have a fever. Get help right away if you: ? Cough up blood. ? Feel pain in your chest. ? Have severe shortness of breath. ? Faint or keep feeling like you are going to faint. ? Have a severe headache. ? Have a fever or chills that get worse. These symptoms may represent a serious problem that is an emergency. Do not wait to see if the symptoms will go away. Get medical help right away. Call your local emergency services (911 in the [place] Do not drive yourself to the hospital. Summary ? Acute bronchitis is inflammation of the main airways (bronchi) that come off the windpipe (trachea) in the lungs. The swelling causes the airways to get smaller and make more mucus than normal. ? Drinking more fluids can help thin your mucus so it is easier to cough up. ? Take rtpd-wae-mjjushz and prescription medici (more content not included)... Normal [facility] Consent for Flu Vaccineon Consent for Flu Vaccine [id number] FF Normal [facility] Family Medicine Office/Clini c Noteon 06-19-2023 Family Medicine Office/Clinic Note Chief Complaint 6mo chk up, fasting, rf atorvastatin to wm/norwalk, flu vacc today, needs shingrix, needs dm foot chk and microalbumin, cont c/o GERD sx's despite use of famotidine History of Present Illness The patient is here for general checkup. She remains compliant with all current medications. She gets heartburn to the point where it salguero the inside of her mouth. She has used Tums and milk for heartburn. She has used asjd-tea-xathqjs Prilosec or Nexium in the distant past. Her eating is not what it used to be. She drinks Sprite. She does not drink coffee or tea in the morning, but has it later in the evening around 5:00 or 6:00. Sayre juice tends to raise her sugar. Her eating habits are basically fairly consistent in the morning.. She has yogurt, some toast, and sometimes cereal. She is not hungry until about 4:00 or 5:00. She denies any episodes of chest pain. She has been using famotidine but does not find it beneficial wishes to have something else She checks her sugars at home and they have been in the range of 100, 116, and 120. Her highest reading was 133 when she had COVID-19. . Denies polyuria polydipsia no acute visual disturbances. Reviewed her recent labs, lipids have been well controlled earlier spring kidney functions liver functions electrolytes and CBC stable . She is scheduled to see Dr. Forrester on Sunday for her toes. Supplemental Information She is scheduled to see neurology on 08/20/2023 in [place]. Her tremors are getting worse. She can feel them at night. Has had 2 other neurologist indicates that they felt that the tremors were simply benign intention tremors. Her son has Parkinson's and her also did. Therefore she is quite concerned about the potential for having this. Review of Systems PHQ Score Initial Depression Screen Score: 0 SCORE See HPI otherwise negative Physical Exam Vitals & Measurements HR: 88(Peripheral) RR: 16 BP: 120/80 SpO2: 96% HT: 60 in HT: 153 cm WT: 83.2 kg WT: 183.04 lb BMI: 35.54 The patient is adequately hydrated, reasonably neatly groomed, well hydrated. Normocephalic, atraumatic. Mildly hard of hearing. Wearing corrective lenses. Conjunctivae clear. Pupils are symmetric. Extraocular muscles intact. Oropharynx pink, moist. Thick, but supple. No JVD, no bruits, no thyromegaly. Auscultation of the lungs diminished, but clear to auscultation. Regular rate and rhythm. Distant S1, S2. No appreciated murmur, gallop, or rub. Abdomen: Soft, flat, mildly tender in the right and left lower quadrants, but no organomegaly. No appreciated rebound or guarding. Rectal exam deferred. There is trace pitting edema at the ankles. Moderately tanned. There is senile purpura on the arms. Specialty Testing Diabetic foot exam is recorded separately. There are significant calluses on both feet and hammertoes. Diabetic Foot Exam Decreased Monofilament Sensation Foot: Left - Abnormal, Right - Abnormal Bunions/Foot Deformity: Left - Abnormal, Right - Abnormal Abnormal Pulse Foot: Left - Normal, Right - Normal Skin Lesions Foot: Left - Normal, Right - Normal Vibratory Sensation Foot: Left - Normal, Right - Normal Foot Exam Result: Abnormal foot exam Foot Exam Findings: Significant calluses heels and metatarsal heads as well as the great toes. Nothing appears secondarily infected. Monofilament testing is diminished. Peripheral pulses intact. Left second toe under rides the third toe significantly. Mild hammertoes on Assessment/Plan 1. GERD (gastroesophageal reflux disease) (K21.9: Gastro-esophageal reflux disease without esophagitis) Reviewed with patient my recommendation to add a PPI routinely and continue with dietary discretions. If this fails to be beneficial may need to give consideration to a GI consult. Asking her not to discard the H2 radha in case it needs to be added back in addition. Ordered: A1c POC 22762 Microalbumin Level Urine U Protein/Creat Ratio 2. 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 Would like her to discuss this with a new neurology consult and ask them to send me a letter Ordered: influenza virus vaccine, inactivated, 0.7 mL, Injection, IntraMuscular, Once, Stop date 06/19/23 12:00:00 EST, Routine, Start date 06/19/23 12:00:00 EST A1c POC 15317 Microalbumin Level Urine U Protein/Creat Ratio 3. CAD (coronary artery disease) (I25.10: Atherosclerotic heart disease of twenty-nine palms coronary artery without angina pectoris) Currently showing no anginal components. She remains on high intensity atorvastatin, aspirin and ANDREAS inhibitor. Always remain vigilant for anginal equivalents seeking care if noted Ordered: influenza virus vaccine, inactivated, 0.7 mL, Injection, IntraMuscular, Once, Stop date 06/19/23 12:00:00 EST, Routine, Start date 06/19/23 12:00:00 EST A1c POC 46245 Microalbumin Level Urine U Protein/Creat Ratio 4. Diabetic polyneuropathy associated with (more content not included)... Normal [facility] Comment on above: Result Comment: Electronically Signed By : JOSHUA LUCAS, Octavio\.lakeshia\Date and Time Signed: 06/19/23 21:51 EST U Microalbon 06-19-2023 Albumin DL <= 20 mg/L (U) [Mass/Vol] 12.2 microgram/mL Normal 0.0-19.0 [facility] Comment on above: Performed By: #### [id number] ####[facility] [address] [place] [address] U Protein/Creat Ratioon 06-06 Albumin Elph (U) [Mass fraction] 12.5 mg/dL Invalid Interpretation Code [facility] Comment on above: Result Comment: The reference range and other method performance specifications have not been established for this test; results should be integrated into the clinical context for interpretation. Performed By: #### 1 [id number] ####[facility] [address] [place] [address] Creatinine (U) [Mass/Vol] 173.6 mg/dL Invalid Interpretation Code [facility] Comment on above: Result Comment: The reference range and other method performance specifications have not been established for this test; results should be integrated into the clinical context for interpretation. Performed By: #### 1 [id number] ####[facility] [address] [place] [address] U Prot/Creat Ratio 72.00 mg/gm Cr Normal .00-200.00 [facility] Comment on above: Performed By: #### [id number] ####[facility] [address] [place] [address] Patient Educationon 06-17-20 Patient Education Orthopedics Essential Tremor A tremor is trembling or shaking that a person cannot control. Most tremors affect the hands or arms. Tremors can also affect the head, vocal cords, legs, and other parts of the body. Essential tremor is a tremor without a known cause. Usually, it occurs while a person is trying to perform an action. It tends to get worse gradually as a person ages. What are the causes? The cause of this condition is not known, but it often runs in families. What increases the risk? You are more likely to develop this condition if: ? You have a family member with essential tremor. ? You are 40 years of age or older. What are the signs or symptoms? The main sign of a tremor is a rhythmic shaking of certain parts of your body that is uncontrolled and unintentional. You may: ? Have difficulty eating with a spoon or fork. ? Have difficulty writing. ? Nod your head up and down or side to side. ? Have a quivering voice. The shaking may: ? Get worse over time. ? Come and go. ? Be more noticeable on one side of your body. ? Get worse due to stress, tiredness (fatigue), caffeine, and extreme heat or cold. How is this diagnosed? This condition may be diagnosed based on: ? Your symptoms and medical history. ? A physical exam. There is no single test to diagnose an essential tremor. However, your health care provider may order tests to rule out other causes of your condition. These may include: ? Blood and urine tests. ? Imaging studies of your brain, such as a CT scan or MRI. How is this treated? Treatment for essential tremor depends on the severity of the condition. ? Mild tremors may not need treatment if they do not affect your day-to-day life. ? Severe tremors may need to be treated using one or more of the following options: ? Medicines. ? Injections of a substance called botulinum toxin. ? Procedures such as deep brain stimulation (DBS) implantation or MRI-guided ultrasound treatment. ? Lifestyle changes. ? Occupational or physical therapy. Follow these instructions at home: Lifestyle ? Do not use any products that contain nicotine or tobacco. These products include cigarettes, chewing tobacco, and vaping devices, such as e-cigarettes. If you need help quitting, ask your health care provider. ? Limit your caffeine intake as told by your health care provider. ? Try to get 8 hours of sleep each night. ? Find ways to manage your stress that fit your lifestyle and personality. Consider trying meditation or yoga. ? Try to anticipate stressful situations and allow extra time to manage them. ? If you are struggling emotionally with the effects of your tremor, consider working with a mental health provider. General instructions ? Take gcbm-bvk-pozndrj and prescription medicines only as told by your health care provider. ? Avoid extreme heat and extreme cold. ? Keep all follow-up visits. This is important. Visits may include physical therapy visits. Where to find more information ? National [place] of Neurological Disorders and Stroke: www.ninds.nih.gov Contact a health care provider if: ? You experience any changes in the location or intensity of your tremors. ? You start having a tremor after starting a new medicine. ? You have a tremor with other symptoms, such as: ? Numbness. ? Tingling. ? Pain. ? Weakness. ? Your tremor gets worse. ? Your tremor interferes with your daily life. ? You feel down, blue, or sad for at least 2 weeks in a row. ? Worrying about your tremor and what other people think about you interferes with your everyday life functions, including relationships, work, or school. Summary ? Essential tremor is a tremor without a known cause. Usually, it occurs when you are trying to perform an action. ? You are more likely to develop this condition if you have a family member with essential tremor. ? The main sign of a tremor is a rhythmic shaking of certain parts of your body that is uncontrolled and unintentional. ? Treatment for essential tremor depends on the severity of the condition. This information is not intended to replace advice given to you by your health care provider. Make sure you discuss any questions you have with your health care provider. Document Revised: 05/12/2022 Document Reviewed: 05/12/2022 Elsevier Patient Education ? 2022 [employer] Inc. Normal [facility] CT Head or Brain w/o Contras ton 05-14-2023 CT Head or Brain w/o Contrast Exam Date/Time: 05/14/2023 14:04 EDT Reason for Exam: Transient ischemic attack (TIA);Other (please specify) Report IMPRESSION: No acute intracranial process. EXAMINATION: CT Head or Brain w/o Contrast HISTORY: Transient ischemic attack (TIA). Cough. Congestion. Facial numbness. TECHNIQUE: Serial axial images without IV contrast were obtained from the vertex to the foramen magnum, with sagittal and coronal reconstructions. All CT scans at this facility use dose modulation, iterative reconstruction, and/or weight based dosing when appropriate to reduce radiation dose to as low as reasonably achievable. COMPARISON: None. RESULT: Acute change: No evidence of an acute infarct or other acute parenchymal process. Hemorrhage: No evidence of acute intracranial hemorrhage. Mass Lesion / Mass Effect: There is no evidence of an intracranial mass or extraaxial fluid collection. No significant mass effect. Chronic change: Scattered patchy foci of low attenuation are present within supratentorial white matter which is a nonspecific finding but likely represents mild microvascular ischemia. Parenchyma: There is no significant volume loss. Ventricles: The ventricles are within normal limits of size and configuration for age. Paranasal sinuses and skull base: Mild thickening throughout the paranasal sinuses. Mastoid air cells clear. The skull base is unremarkable. Soft tissues unremarkable. Report Ordering Provider: Danish Pires FINAL REPORT Dictated: 05/14/2023 2:06 pm Miky Neri MD. Signed (Electronic Signature): 05/14/2023 2:06 pm Signed by: Miky Neri MD Transcribed by: MIKE Technologist: GERSON Normal [facility] Capillary Glucose POCon 10-0 Glucose [Mass/Vol] 105 mg/dL High 55-99 [facility] Comment on above: Result Comment: Notified RN/MD Performed By: #### 2 [id number] #### [facility] [address] [place] [address] Consent for Treatmenton Consent for Treatment [id number] F Normal [facility] Discharge Instructionson Discharge Instructions [id number] FF Normal [facility] ED Clinical Summaryon 2022 ED Clinical Summary [address] [address] ED Clinical Summary Person Information Name: CARLOS A SOW Harika/[facility] Age: 77 Years : 1945 Sex: Female Language: Martiniquais PCP: Octavio WINTERS MD Marital Status: Phone: [phone] Visit Id: Visit Reason: Sinus Pain/Congestion; Cough; Paresthesia; COUGHING, LEFT SIDE OF FACE NUMB Speciality: Acuity: 2 Enc Type: Emergency Med Service: Emergency Arrival: 05/14/2023 13:21:19 Discharge: 05/14/2023 14:40:51 LOS: 000 01:19 Checkin: 05/14/2023 13:21:19 Checkout: 05/14/2023 14:40:51 Dispo Type: Home (Routine DC) EVENTS: Event Name Event Status Request Date/Time Start Date/Time Complete Date/Time Arrive Complete 05/14/2023 13:21:19 05/14/2023 13:21:19 05/14/2023 13:21:19 Document Home Meds Request 05/14/2023 13:21:19 Triage Complete 05/14/2023 13:21:19 05/14/2023 13:39:55 05/14/2023 13:39:55 Registration Complete 05/14/2023 13:26:35 05/14/2023 13:26:35 05/14/2023 13:26:35 Reg Complete Request 05/14/2023 13:26:35 Reg Bed Request Complete 05/14/2023 13:26:35 05/14/2023 13:26:35 05/14/2023 13:26:35 Bed Assign Complete 05/14/2023 13:41:15 05/14/2023 13:41:15 05/14/2023 13:41:15 Dr Exam Complete 05/14/2023 13:41:16 05/14/2023 13:42:35 05/14/2023 13:42:35 RN Exam Complete 05/14/2023 13:41:16 05/14/2023 13:56:54 05/14/2023 13:56:54 Registration Request 05/14/2023 13:42:35 CT Complete 05/14/2023 13:48:57 05/14/2023 13:50:10 05/14/2023 14:04:21 Pending Labs Complete 05/14/2023 13:56:14 05/14/2023 13:56:14 05/14/2023 13:56:15 Discharge Complete 05/14/2023 14:27:23 05/14/2023 14:41:02 05/14/2023 14:41:02 Transfer Complete 05/14/2023 14:41:02 05/14/2023 14:41:02 05/14/2023 14:41:02 ADDRESS: [facility] [phone] PHYS DOC NOTES: MEDICAL INFORMATION: Prescriptions Given: New Medications [facility], [address] [place], [place] [id number], [phone] predniSONE (predniSONE 20 mg Tab) 3 By Mouth every day for 7 Days. Refills: 0. Medications to Continue with No Changes Other Medications ascorbic acid (Vitamin C) patient gets OTC, not prescribed. atorvastatin (atorvastatin 80 mg Tab) 1 Tablets By Mouth every day. Refills: 1. atorvastatin (atorvastatin 80 mg Tab) 1 Tablets By Mouth every day. Refills: 1. calcium carbonate (calcium 500 mg tablet) patient gets OTC, not prescribed. cholecalciferol (Vitamin D3 2000 intl units) Patient gets OTC, not prescribed. dextromethorphan-prometh azine (dextromethorphan-promet hazine 15 mg-6.25 mg/5 mL Oral Syrup 5 mL) 5 Milliliter By Mouth every 6 hours as needed for cough. Refills: 1. famotidine (famotidine 40 mg Tab) 1 Tablets By Mouth once a day (at bedtime). Refills: 1. hydrochlorothiazide-tk nopril (hydrochlorothiazide-lis inopril 25 mg-20 mg Tab) 1 Tablets By Mouth every day. Refills: 1. metformin (metformin 500 mg Tab) 1 Tablets By Mouth 2 times a day. Refills: 1. Misc Prescription (Glucometer test strips) Test blood sugar daily DX E11.69. Refills: 3. Misc Prescription (Lancets) Test blood sugar daily DX E11.69. Refills: 3. Misc Prescription (Misc DME Prescription) freestyle lite test in vitro strip, one QD, dx e11.9. Misc Prescription (Misc DME Prescription) freestyle lancets, one QD, dx e11.9. multivitamin with minerals (Multivitamins and Minerals) triamcinolone topical (triamcinolone topical 0.5% cream) 1 Application Topical 2 times a day. Refills: 2. Turmeric 500 Milligram By Mouth every day. zinc sulfate (Zinc) Patient gets OTC, not prescribed. PATIENT EDUCATION INFORMATION: Instructions: Paresthesia; Sinus Infection, Adult, Wamo-hy-Mbju Follow up: With: Address: When: Octavio WINTERS [address] [place], [place] [id number] Business (1) Within 1 to 2 days DIAGNOSIS: Paranasal sinus disease; Sinusitis Normal [facility] ED Note-Physicianon 05-14-20 ED Note-Physician Basic Information Time Seen: Danish Pires DO 05/14/2023 13:42 Chief Complaint Patient states cough and congestion. Patient states left side of face felt hot and numb since night. Patient states sunday morning Dr Winters prescribed cough syrup that helped with cough. Patient facial movement on face is symmetric in triage. History of Present Illness 77 female presents with sinus pressure and complaints. Patient states that she has been dealing with this for the last 5 days. She describes nasal congestion left-sided sinus pain and pressure. On Sunday this past weekend she took a COVID test that was positive. She also spoke with her primary care physician who called in some cough syrup that does seem to be helping. What concerning her is this left-sided facial numbness associated with this. She has had this over the last 5 days. She denies any changes to speech or vision no numbness or weakness to the upper or lower extremities otherwise. No history of stroke. No other aggravating or relieving factors no other associated symptoms no other prior treatments or complaints. Family: Reviewed and noncontributory Social: lives at home Review of systems negative unless otherwise specified in the HPI. Physical Exam Vitals & Measurements T: 36.0 ?C(Temporal Artery) HR: 94(Peripheral) RR: 20 BP: 134/80 SpO2: 97% HT: 153 cm WT: 83 kg BMI: 35.46 General: The patient appears well and in no apparent distress. Patient is resting comfortably on cart. Skin: Warm, dry, no pallor noted. Head: Normocephalic, atraumatic Neck: No JVD Eye: PERRLA, EOMI ENT: Moist mucus membranes Cardiovascular: Regular rate normal peripheral perfusion Respiratory: No respiratory distress no accessory muscle use no obvious audible wheezing Chest Wall: no deformity Musculoskeletal: normal ROM, no deformity, no swelling Neurological: A&O moves all extremities equal strength and symmetry stroke scale score 0 no dysarthria no aphasia cranial nerves grossly intact as tested Psychiatric: Cooperative and appropriate Medical Decision Making Blood sugars unremarkable CT does reveal thickened paranasal sinuses but no evidence of stroke or other pathology. Patient will be treated with steroids that she is already on medicine for cough and already has known diagnosis of COVID so she is discharged home to follow-up return to ER symptoms change or worsen. Assessment/Plan Paranasal sinus disease (J34.9: Unspecified disorder of nose and nasal sinuses) Sinusitis (J32.9: Chronic sinusitis, unspecified) Orders: Capillary Glucose POC CT Head or Brain w/o Contrast Disposition Plan Discharge Prescription List Prescriptions predniSONE 20 mg Tab, 3, Oral, Daily Follow-up With When Contact Information Octavio WINTERS Within 1 to 2 days [address] [place] [address]- Business (1) Additional Instructions: Patient Education Paresthesia Sinus Infection, Adult, Hwpu-nu-Hyxo Problem List/Past Medical History Ongoing Action tremor Acute asthma flare Acute suprapubic pain Allergy to environmental factors At risk for falls BMI 34.0-34.9,adult CAD (coronary artery disease) Carpal tunnel syndrome, left upper limb Diabetic polyneuropathy associated with type 2 diabetes mellitus DJD (degenerative joint disease) Ectatic aorta Eczema 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 Gait disturbance GERD (gastroesophageal reflux disease) HTN - Hypertension Impingement syndrome of right shoulder Insomnia Left lumbar radiculopathy [facility] current use of oral hypoglycemic drug Meniere disease Mild persistent asthma Mixed hyperlipidemia Mixed stress and urge urinary incontinence Morbid obesity On statin therapy Right cervical radiculopathy Type 2 diabetes mellitus with hyperlipidemia Type 2 diabetes mellitus with morbid obesity Varicose veins of bilateral lower extremities with other complications Varicose veins of lower extremities with inflammation Varicose veins of right lower extremity with pain Venous insufficiency of right leg Historical borderline diabetic Factor 5 Leiden mutation History of - hypercholesterolemia hypertension Obesity (BMI 30-39.9) Reactive airway disease Screening mammogram, encounter for Procedure/Surgical History Carpal tunnel release (01/24/2021), Colonoscopy (08/06/2013), Bunionectomy (12/14/2009), 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 Medications Inpatient No active inpatient medications Home atorvastatin 80 mg Tab, 80 mg= 1 tab(s), Oral, Daily, 1 refills atorvastatin 80 mg Tab, 80 mg= 1 tab(s), Oral, Daily, 1 refills calcium 500 mg tablet, See Instructions dextrometh (more content not included)... Normal [facility] Comment on above: Result Comment: Electronically Signed By : Danish Pires DO\.br\Date and Time Signed: 05/14/23 14:27 EDT ED Patient Education Noteon 05-14-2023 ED Patient Education Note Infectious Disease Sinus Infection, Adult A sinus infection is soreness and swelling (inflammation) of your sinuses. Sinuses are hollow spaces in the bones around your face. They are located: ? Around your eyes. ? In the middle of your forehead. ? Behind your nose. ? In your cheekbones. Your sinuses and nasal passages are lined with a fluid called mucus. Mucus drains out of your sinuses. Swelling can trap mucus in your sinuses. This lets germs (bacteria, virus, or fungus) grow, which leads to infection. Most of the time, this condition is caused by a virus. What are the causes? ? Allergies. ? Asthma. ? Germs. ? Things that block your nose or sinuses. ? Growths in the nose (nasal polyps). ? Chemicals or irritants in the air. ? A fungus. This is rare. What increases the risk? ? Having a weak body defense system (immune system). ? Doing a lot of swimming or diving. ? Using nasal sprays too much. ? Smoking. What are the signs or symptoms? The main symptoms of this condition are pain and a feeling of pressure around the sinuses. Other symptoms include: ? Stuffy nose (congestion). This may make it hard to breathe through your nose. ? Runny nose (drainage). ? Soreness, swelling, and warmth in the sinuses. ? A cough that may get worse at night. ? Being unable to smell and taste. ? Mucus that collects in the throat or the back of the nose (postnasal drip). This may cause a sore throat or bad breath. ? Being very tired (fatigued). ? A fever. How is this diagnosed? ? Your symptoms. ? Your medical history. ? A physical exam. ? Tests to find out if your condition is short-term (acute) or long-term (chronic). Your doctor may: ? Check your nose for growths (polyps). ? Check your sinuses using a tool that has a light on one end (endoscope). ? Check for allergies or germs. ? Do imaging tests, such as an MRI or CT scan. How is this treated? Treatment for this condition depends on the cause and whether it is short-term or long-term. ? If caused by a virus, your symptoms should go away on their own within 10 days. You may be given medicines to relieve symptoms. They include: ? Medicines that shrink swollen tissue in the nose. ? A spray that treats swelling of the nostrils. ? Rinses that help get rid of thick mucus in your nose (nasal saline washes). ? Medicines that treat allergies (antihistamines). ? Ggpc-ypj-ccfolum pain relievers. ? If caused by bacteria, your doctor may wait to see if you will get better without treatment. You may be given antibiotic medicine if you have: ? A very bad infection. ? A weak body defense system. ? If caused by growths in the nose, surgery may be needed. Follow these instructions at home: Medicines ? Take, use, or apply lpky-ljk-gldjpsv and prescription medicines only as told by your doctor. These may include nasal sprays. ? If you were prescribed an antibiotic medicine, take it as told by your doctor. Do not stop taking it even if you start to feel better. Hydrate and humidify ? Drink enough water to keep your pee (urine) pale yellow. ? Use a cool mist humidifier to keep the humidity level in your home above 50%. ? Breathe in steam for 10?15 minutes, 3?4 times a day, or as told by your doctor. You can do this in the bathroom while a hot shower is running. ? Try not to spend time in cool or dry air. Rest ? Rest as much as you can. ? Sleep with your head raised (elevated). ? Make sure you get enough sleep each night. General instructions ? Put a warm, moist washcloth on your face 3?4 times a day, or as often as told by your doctor. ? Use nasal saline washes as often as told by your doctor. ? Wash your hands often with soap and water. If you cannot use soap and water, use hand audio/video technician. ? Do not smoke. Avoid being around people who are smoking (secondhand smoke). ? Keep all follow-up visits. Contact a doctor if: ? You have a fever. ? Your symptoms get worse. ? Your symptoms do not get better within 10 days. Get help right away if: ? You have a very bad headache. ? You cannot stop vomiting. ? You have very bad pain or swelling around your face or eyes. ? You have trouble seeing. ? You feel confused. ? Your neck is stiff. ? You have trouble breathing. These symptoms may be an emergency. Get help right away. Call 911. ? Do not wait to see if the symptoms will go away. ? Do not drive yourself to the hospital. Summary ? A sinus infection is swelling of your sinuses. Sinuses are hollow spaces in the bones around your face. ? This condition is caused by tissues in your nose that become inflamed or swollen. This traps germs. These can lead to infection. ? If you were prescribed an antibiotic medicine, take it as told by your doctor. Do not stop taking it even if you start to feel better. ? Keep all follow-up visits (more content not included)... Normal [facility] ED Patient Summaryon 023 ED Patient Summary [address] [address] Patient Discharge Instructions Person Information Name: CARLOS A SOW Age: 77 Years Arrival Date: 05/14/2023 13:21:19 Discharge Diagnosis: Paranasal sinus disease; Sinusitis Primary Care Physician: Octavio WINTERS MD Provider Information Primary Provider: Danish Pires DO Advanced Rate Clerk:None The exam and treatment you received in the Emergency Department were for an urgent problem and are not intended as complete care. It is important that you follow up with a doctor, nurse practitioner, or physician?s certified medical assistant for ongoing care. If your symptoms become worse or you do not improve as expected and you are unable to reach your usual health care provider, you should return to the Emergency Department. We are available 24 hours a day. CARLOS A SOW has been given the following list of patient education materials, prescriptions and follow-up instructions: Follow-up Instructions: With: Address: When: Octavio WINTERS [address] [place] [id number] Business (1) Within 1 to 2 days In the event that this physician does not participate in your insurance network, please consult with your insurance company to find a nearby participating provider. Patient Education Materials: Paresthesia; Sinus Infection, Adult, Omyd-ns-Ikwd A MESSAGE TO ALL PATIENTS REGARDING OPIOIDS PRESCRIPTION OPIOIDS: WHAT YOU NEED TO KNOW Prescription opioids can be used to help relieve awqzlvzs-zn-ldtxoz pain and are often prescribed following a surgery or injury, or for certain health conditions. These medications can be an important part of the treatment but also come with serious risks. It is important to work with your healthcare provider to make sure you are getting the safest, most effective care. WHAT ARE THE RISKS AND SIDE EFFECTS OF OPIOID USE? Prescription opioids carry serious risks of addiction and overdose, especially with prolonged use. An opioid overdose, often marked by slowed breathing, can cause sudden . The use of prescription opioids can have a number of side effects as well, even when taken as directed: ? Tolerance?meaning you might need to take more of the medication for the same pain relief ? Physical dependence?meaning you have symptoms of withdrawal when a medication is stopped ? Increased sensitivity to pain ? Constipation ? Nausea, vomiting, and dry mouth ? Sleepiness and dizziness ? Confusion ? Depression ? Low levels of testosterone that can result in lower sex drive, energy, and strength ? Itching and sweating RISKS ARE GREATER WITH: ? History of drug misuse, substance use disorder, or overdose ? Mental health conditions (such as depression or anxiety) ? Sleep apnea ? Older age (65 years and older) ? Avoid alcohol while taking prescription opioids. Also, unless specifically advised by your health care provider, medications to avoid include: ? Benzodiazepines (such as Xanax or Valium) ? Muscle relaxants (such as Soma or Flexeril) ? Hypnotics (such as Ambien or Lunesta) ? Other prescription opioids KNOW YOUR OPTIONS Talk to your health care provider about ways to manage your pain that don?t involve prescription opioids. Some of these options may actually work better and have fewer risks and side effects. Options may include: ? Pain relievers such as acetaminophen, ibuprofen, and naproxen ? Some medication that are also used for depression or seizures ? Physical therapy and exercise ? Cognitive behavioral therapy, a psychological, goal-directed approach, in which patients learn how to modify physical, behavioral, and emotional triggers of pain and stress. IF YOU ARE PRESCRIBED OPIOIDS FOR PAIN: ? Never take opioids in greater amounts or more often than prescribed. ? Follow up with your primary health care provider. o Work together to create a plan on how to manage your pain. o Talk about ways to help manage your pain that don?t involve prescription opioids. o Talk about any and all concerns and side effects. ? Help prevent misuse and abuse o Never sell or share prescription opioids. o Never use another person?s prescription opioids. ? Store prescription opioids in a secure place and out of reach of others (this may include visitors, children, friends, and family). ? Safely dispose of unused prescription opioids: Find your community drug take-back program or your pharmacy mail-back program, or flush them down the toilet, following guidance from the Food and Drug Administration (www.fda.gov/Drugs/Resou rcesForYou). ? Visit www.cdc.gov/drugoverdose to learn about the risks of opioids abuse and overdose. ? If you believe you may be struggling with addiction, tell your health account executive healthcare and ask for guidance or call [facility] (more content not included)... Normal [facility] Patient Educationon 05-10-20 Patient Education Obstetrics and Gynecology Overactive Bladder, Adult Overactive bladder is a condition in which a person has a sudden and frequent need to urinate. A person might also leak urine if he or she cannot get to the bathroom fast enough (urinary incontinence). Sometimes, symptoms can interfere with work or social activities. What are the causes? Overactive bladder is associated with poor nerve signals between your bladder and your brain. Your bladder may get the signal to empty before it is full. You may also have very sensitive muscles that make your bladder squeeze too soon. This condition may also be caused by other factors, such as: ? Medical conditions: ? Urinary tract infection. ? Infection of nearby tissues. ? Prostate enlargement. ? Bladder stones, inflammation, or tumors. ? Diabetes. ? Muscle or nerve weakness, especially from these conditions: ? A spinal cord injury. ? Stroke. ? Multiple sclerosis. ? Parkinson's disease. ? Other causes: ? Surgery on the uterus or urethra. ? Drinking too much caffeine or alcohol. ? Certain medicines, especially those that eliminate extra fluid in the body (diuretics). ? Constipation. What increases the risk? You may be at greater risk for overactive bladder if you: ? Are an older adult. ? Smoke. ? Are going through menopause. ? Have prostate problems. ? Have a neurological disease, such as stroke, dementia, Parkinson's disease, or multiple sclerosis (MS). ? Eat or drink alcohol, spicy food, caffeine, and other things that irritate the bladder. ? Are overweight or obese. What are the signs or symptoms? Symptoms of this condition include a sudden, strong urge to urinate. Other symptoms include: ? Leaking urine. ? Urinating 8 or more times a day. ? Waking up to urinate 2 or more times overnight. How is this diagnosed? This condition may be diagnosed based on: ? Your symptoms and medical history. ? A physical exam. ? Blood or urine tests to check for possible causes, such as infection. You may also need to see a health care provider who specializes in urinary tract problems. This is called a urologist. How is this treated? Treatment for overactive bladder depends on the cause of your condition and whether it is mild or severe. Treatment may include: ? Bladder training, such as: ? Learning to control the urge to urinate by following a schedule to urinate at regular intervals. ? Doing Kegel exercises to strengthen the pelvic floor muscles that support your bladder. ? Special devices, such as: ? Biofeedback. This uses sensors to help you become aware of your body's signals. ? Electrical stimulation. This uses electrodes placed inside the body (implanted) or outside the body. These electrodes send gentle pulses of electricity to strengthen the nerves or muscles that control the bladder. ? Women may use a plastic device, called a pessary, that fits into the vagina and supports the bladder. ? Medicines, such as: ? Antibiotics to treat bladder infection. ? Antispasmodics to stop the bladder from releasing urine at the wrong time. ? Tricyclic antidepressants to relax bladder muscles. ? Injections of botulinum toxin type A directly into the bladder tissue to relax bladder muscles. ? Surgery, such as: ? A device may be implanted to help manage the nerve signals that control urination. ? An electrode may be implanted to stimulate electrical signals in the bladder. ? A procedure may be done to change the shape of the bladder. This is done only in very severe cases. Follow these instructions at home: Eating and drinking ? Make diet or lifestyle changes recommended by your health care provider. These may include: ? Drinking fluids throughout the day and not only with meals. ? Cutting down on caffeine or alcohol. ? Eating a healthy and balanced diet to prevent constipation. This may include: ? Choosing foods that are high in fiber, such as beans, whole grains, and fresh fruits and vegetables. ? Limiting foods that are high in fat and processed sugars, such as fried and sweet foods. Lifestyle ? Lose weight if needed. ? Do not use any products that contain nicotine or tobacco. These include cigarettes, chewing tobacco, and vaping devices, such as e-cigarettes. If you need help quitting, ask your health care provider. General instructions ? Take hxmt-awn-izugqdb and prescription medicines only as told by your health care provider. ? If you were prescribed an antibiotic medicine, take it as told by your health care provider. Do not stop taking the antibiotic even if you start to feel better. ? Use any implants or pessary as told by your health care provider. ? If needed, wear pads to absorb urine leakage. ? Keep a log to track how much and when you drink, and when you need to urinate. This will help your health care provider monitor yo (more content not included)... Normal [facility] [place] 04-17-2023 Consent [id number] Normal [facility] Family Medicine Office/Clini c Noteon 04-17-2023 Family Medicine Office/Clinic Note Chief Complaint EST cough, congestion HPI Staff Carlos A is a 77 year old female here with a cough left side facial pain and pressure Symptoms started- 1 week Headache- denies Body aches- denies Earache- left ear pain Runny/stuffy nose- yes Sore throat- feels raw and irritated from coughing Cough- yes Scratchy tickly throat- yes Chest symptoms- chest tightness Lung Hx asthma, bronchitis, chest colds- asthmatic bronchitis Fever/chills- no fever but feels very hot GI symptoms- denies COVID exposure- denies took a COVID test last week and it was negative History of Present Illness Reviewed and agree with above documented HPI by certified medical technician. Portions of this record may have been created with voice recognition artificial intelligence software, specifically [employer], [employer] and or [employer]. Substitutions may have occurred due to the inherent limitations of voice recognition and artificial intelligence software. Patient is a 77-year-old female presents to [facility] care, for nonproductive cough, chest tightness, patient states she does have a history of asthma and bronchitis, has not had an episode asthma bronchitis for few years, states when she had asthma bronchitis she was on inhalers at the time, she is currently not on any inhalers. Patient states she has been having some congestion, sore throat with coughing, but has no pain with eating and swallowing, has her sense of taste and smell intact. Patient states she is not insulin-dependent diabetic, has not been on steroids for a while. Patient states she has facial pressure more in the left than the right, states she tried gmaz-syn-wmbeinw Mucinex with some symptom relief, but has not done it constantly. Patient states she did test herself last week Sunday when the symptoms started for COVID-19 she had negative results. Patient states symptoms more constant with her asthma. Patient denies any fevers, chills, headache, dizziness, nausea or vomiting, worsening cough, productive cough, chest pain, shortness of breath, or weakness. Review of Systems PHQ Score Initial Depression Screen Score: 0 Physical Exam Vitals & Measurements T: 37.1 ?C(Oral) HR: 88(Peripheral) BP: 116/74 SpO2: 97% HT: 60 in HT: 153 cm WT: 83 kg WT: 182.6 lb BMI: 35.46 General: Patient does not appear to be in any distress, no respiratory distress, good eye contact, does not appear ill or septic, answers questions appropriately and in complete sentences, and follows commands appropriately. No facial droop, slurred speech, or difficulty swallowing is noted. Vital signs: BP 116/74, heart rate 88, temp 37.1, oxygen room air is 97%, patient does not wear oxygen at home. Head/Face: Normocephalic/atraumatic positive bilateral frontal sinus and positive bilateral maxillary sinus tenderness, left side greater than right, no facial swelling or cellulitis is noted. Eyes: Pupils equal, round, and reactive to light. Conjunctivae and sclerae normal, Ears: Bilateral TMs are bulging with no signs otitis media otitis externa. Hearing is intact. Nose: No deformity, discharge, inflammation, or lesions Mouth: Mucous membranes moist. Normal oropharynx, and posterior pharynx without lesions or exudates. Tongue normal Neck: Neck supple. No masses or palpable cervical nodes. Trachea midline. Lungs: Normal respiratory effort and clear to auscultation throughout, no wheezing, no rales, crackles, or decreased breath sounds are noted on exam. Chest tightness with cough. Cardio: regular rate and rhythm, no murmur no chest wall tenderness. No chest pain. Pulses: Normal capillary refill Extremity: No clubbing, cyanosis, edema, or deformity, with normal ROM in both upper and lower bilateral extremities Neurologic: Grossly normal Skin: No rashes, ulcerations, or suspicious lesions Lymph Nodes: no lad Mental Status: Alert and oriented x3. Normal mood and affect Assessment/Plan DuoNeb breathing treatment. Chest x-ray for any possible acute thoracic process. IM Kenalog 20 mg COVID-19 nasal swab. Patient declined DuoNeb breathing treatment, states she does not like the way albuterol makes her feel, feels like she is choking on it. Discussed with patient and she was negative for COVID-19. Discussed with patient no acute findings were noted on imaging read by the radiologist. 77-year-old female presented to [facility] urgent care, for asthma flareup, symptoms started about a week ago, cough has been nonproductive, not worsening, no chest pain, shortness of breath, dyspnea on exertion. Patient did not appear ill or septic, no respiratory disorders. Patient was given a prescription for Tessalon Perles and prednisone, verbally understands no antibiotics indicated at this time, no signs within normal limits. Patient verbally understands to contact emergency room for any worsening symptoms, concerns, or complications. Patient agrees with plan. 1. Acute asthma flare (J45.901: Unspecified asthma with (more content not included)... Normal [facility] Comment on above: Result Comment: Electronically Signed By : BRITTANI BIANCHI, TYLER\.br\Date and Time Signed: 04/17/23 14:06 EDT Patient Educationon 04-17-20 Patient Education Nutrition BMI for Adults What is BMI? Body mass index (BMI) is a number that is calculated from a person's weight and height. BMI can help estimate how much of a person's weight is composed of fat. BMI does not measure body fat directly. Rather, it is an alternative to procedures that directly measure body fat, which can be difficult and expensive. BMI can help identify people who may be at higher risk for certain medical problems. What are BMI measurements used for? BMI is used as a screening tool to identify possible weight problems. It helps determine whether a person is obese, overweight, a healthy weight, or underweight. BMI is useful for: ? Identifying a weight problem that may be related to a medical condition or may increase the risk for medical problems. ? Promoting changes, such as changes in diet and exercise, to help reach a healthy weight. BMI screening can be repeated to see if these changes are working. How is BMI calculated? BMI involves measuring your weight in relation to your height. Both height and weight are measured, and the BMI is calculated from those numbers. This can be done either in [place] or metric measurements. Note that charts and online BMI calculators are available to help you find your BMI quickly and easily without having to do these calculations yourself. To calculate your BMI in [place] measurements: 1. Measure your weight in pounds (lb). 2. Multiply the number of pounds by 703. ? For example, for a person who weighs 180 lb, multiply that number by 703, which equals 126,540. 3. Measure your height in inches. Then multiply that number by itself to get a measurement called inches squared. ? For example, for a person who is 70 inches tall, the inches squared measurement is 70 inches x 70 inches, which equals 4,900 inches squared. 4. Divide the total from step 2 (number of lb x 703) by the total from step 3 (inches squared): 126,540 ? 4,900 = 25.8. This is your BMI. To calculate your BMI in metric measurements: 1. Measure your weight in kilograms (kg). 2. Measure your height in meters (m). Then multiply that number by itself to get a measurement called meters squared. ? For example, for a person who is 1.75 m tall, the meters squared measurement is 1.75 m x 1.75 m, which is equal to 3.1 meters squared. 3. Divide the number of kilograms (your weight) by the meters squared number. In this example: 70 ? 3.1 = 22.6. This is your BMI. What do the results mean? BMI charts are used to identify whether you are underweight, normal weight, overweight, or obese. The following guidelines will be used: ? Underweight: BMI less than 18.5. ? Normal weight: BMI between 18.5 and 24.9. ? Overweight: BMI between 25 and 29.9. ? Obese: BMI of 30 or above. Keep these notes in mind: ? Weight includes both fat and muscle, so someone with a muscular build, such as an athlete, may have a BMI that is higher than 24.9. In cases like these, BMI is not an accurate measure of body fat. ? To determine if excess body fat is the cause of a BMI of 25 or higher, further assessments may need to be done by a health care provider. ? BMI is usually interpreted in the same way for men and women. Where to find more information For more information about BMI, including tools to quickly calculate your BMI, go to these websites: ? Centers for Disease Control and Prevention: www.cdc.gov ? [place] [employer]: www.heart.org ? National Heart, Lung, and Blood [place]: www.nhlbi.nih.gov Summary ? Body mass index (BMI) is a number that is calculated from a person's weight and height. ? BMI may help estimate how much of a person's weight is composed of fat. BMI can help identify those who may be at higher risk for certain medical problems. ? BMI can be measured using [place] measurements or metric measurements. ? BMI charts are used to identify whether you are underweight, normal weight, overweight, or obese. This information is not intended to replace advice given to you by your health care provider. Make sure you discuss any questions you have with your health care provider. Document Revised: 04/14/2020 Document Reviewed: 02/20/2020 [employer] Patient Education ? 2022 [employer]. Pulmonary Medicine Asthma, Adult Asthma is a condition that causes swelling and narrowing of the airways. These are the passages that lead from the nose and mouth down into the lungs. When asthma symptoms get worse it is called an asthma attack or flare. This can make it hard to breathe. Asthma flares can range from minor to life-threatening. There is no cure for asthma, but medicines and lifestyle changes can help to control it. What are the causes? It is not known exactly what causes asthma, but certain things can cause asthma symptoms to get worse (triggers). What can trigger an asthma attack? ? Cigarette smoke. ? Mold. ? Dust. ? Yo (more content not included)... Normal [facility] XR Chest 2 Viewson 3 XR Chest 2 Views Exam Date/Time: 04/17/2023 13:29 EDT Reason for Exam: Cough Report IMPRESSION: No acute radiographic abnormality. EXAMINATION: XR Chest 2 Views Clinical History: Cough Comparison: 06/05/2022. RESULT: No focal consolidation. No pleural effusion. No pneumothorax. Stable cardiomediastinal silhouette. No acute osseous findings. Degenerative changes. Surgical clips right upper quadrant. Ordering Provider: TYLER PETER FINAL REPORT Dictated: 04/17/2023 1:51 pm Miky Neri MD. Signed (Electronic Signature): 04/17/2023 1:51 pm Signed by: Miky Neri MD Transcribed by: MIKE Technologist: ARCADIO Technical Comments Radiation Dose: Ka,r in mGy = na DAP = na Normal [facility] Physician Referralon 023 Physician Referral [id number] :127 Normal [facility] Physician Referralon 023 Physician Referral [id number] :127 Normal [facility] Auto Diffon 12-19-2022 Basophils/100 WBC (Bld) 0.6 % Normal 0.0-2.0 [facility] Comment on above: Order Comment: Order Added by Luz Ex pert. Performed By: #### 2 850768, 44263712, 9033609, 471813778, 5214484, 6705349 ####[facility] [address] [place] [address] Basophils/Leukoc ytes Auto (Bld) [Pure # fraction] 0.0 E9/L Normal 0.0-0.2 [facility] Comment on above: Order Comment: Order Added by Luz Ex pert. Performed By: #### 2 084524, 56482736, 6538969, 759022833, 9381054, 6278233 ####[facility] [address] [place] [address] Eosinophils/100 WBC (Bld) 2.7 % Normal 0.0-8.0 [facility] Comment on above: Order Comment: Order Added by Luz Ex pert. Performed By: #### 2 855022, 47937075, 6002096, 113834417, 3923594, 2473012 ####[facility] [address] [place] [address] Eosinophils/Leuk ocytes Auto (Bld) [Pure # fraction] 0.2 E9/L Normal 0.0-0.5 [facility] Comment on above: Order Comment: Order Added by Discern Ex pert. Performed By: #### 2 606408, 72285086, 6391781, 237357127, 2869846, 1205295 ####[facility] [address] [place] [address] Lymphocytes/100 WBC (Bld) 26.4 % Normal 14.0-50.0 [facility] Comment on above: Order Comment: Order Added by Discern Ex pert. Performed By: #### 2 808835, 31288852, 2694796, 033164487, 2313421, 1388726 ####[address] [address] Lymphocytes/Leuk ocytes Auto (Bld) [Pure # fraction] 1.6 E9/L Normal 1.0-4.0 [facility] Comment on above: Order Comment: Order Added by Luz Ex pert. Performed By: #### 2 728491, 12150276, 6101696, 151735680, 7354311, 9051828 ####[address] [address] Monocytes/100 WBC (Bld) 9.6 % Normal 4.0-14.0 [facility] Comment on above: Order Comment: Order Added by Discern Ex pert. Performed By: #### 2 750795, 11999312, 0135286, 778061257, 3770505, 8203654 ####[facility] [address] [place] [address] Monocytes/Leukoc ytes Auto (Bld) [Pure # fraction] 0.6 E9/L Normal 0.2-1.0 [facility] Comment on above: Order Comment: Order Added by Discern Ex pert. Performed By: #### 2 022979, 22448175, 5883424, 272420572, 7197201, 4575098 ####[facility] [address] [place] [address] Neutrophils/100 WBC (Bld) 60.7 % Normal 36.0-75.0 [facility] Comment on above: Order Comment: Order Added by Luz Ex pert. Performed By: #### 2 337824, 16213228, 5491945, 528189700, 8506524, 7749665 ####[address] [address] Neutrophils/Leuk ocytes Auto (Bld) [Pure # fraction] 3.7 E9/L Normal 2.0-7.5 [facility] Comment on above: Order Comment: Order Added by Luz Ex pert. Performed By: #### 2 536040, 15582946, 2264069, 530121899, 9829580, 1186505 ####[address] [address] CBC w/ Auto Diffon Erythrocyte distribution width (RBC) [Ratio] 14.2 % Normal 10.9-14.2 [facility] Comment on above: Performed By: #### 3206277, 95686004, 29 79155, 100308224, 0331632, 9117867 ####[address] [address] Hematocrit (Bld) [Volume fraction] 38.1 % Normal 34.0-46.0 [facility] Comment on above: Performed By: #### 5925751, 95629641, 29 38233, 566505690, 2870979, 3447143 ####[facility] [address] [place] [address] Hemoglobin (Bld) [Mass/Vol] 12.8 g/dL Normal 12.0-16.0 [facility] Comment on above: Performed By: #### 8158810, 04419556, 29 12712, 978252277, 8797395, 2075182 ####[facility] [address] [place] [address] MCH (RBC) [Entitic mass] 30.2 pg Normal 27.0-34.0 [facility] Comment on above: Performed By: #### 2900538, 73272801, , 066657008, 0871688, 2049135 ####[facility] [address] [place] [address] MCHC (RBC) [Mass/Vol] 33.5 g/dL Normal 31.4-36.0 [facility] Comment on above: Performed By: #### 5136219, 60270386, , 574966740, 8247658, 5250647 ####[address] [address] MCV (RBC) [Entitic vol] 90.3 fL Normal 80.0-100.0 [facility] Comment on above: Performed By: #### 0910829, 28611185, , 352946519, 3187609, 5254772 ####[address] [address] Platelet mean volume (Bld) [Entitic vol] 9.3 fL Normal 6.4-10.8 [facility] Comment on above: Performed By: #### 9180725, 98644560, , 766694012, 9699839, 4285295 ####[address] [address] Platelets (Bld) [#/Vol] 251.0 E9/L Normal 150.0-500.0 [facility] Comment on above: Performed By: #### 1617526, 19778734, , 140230082, 4200230, 5514629 ####[address] [address] RBC (Bld) [#/Vol] 4.2 E12/L Low 4.3-5.9 [facility] Comment on above: Performed By: #### 3538108, 02030104, , 062772723, 5836212, 4037986 ####[address] [address] WBC corrected for nucl RBC Auto (Bld) [#/Vol] 6.1 E9/L Normal 4.0-11.0 [facility] Comment on above: Performed By: #### 6249686, 80713808, 29 38485, 545628532, 6689575, 5622007 ####[facility] [address] [place] [address] CMPon 12-19-2022 Albumin [Mass/Vol] 4.2 g/dL Normal 3.3-5.0 [facility] Comment on above: Performed By: #### 9209605, 14640946, 29 18138, 876190465, 6234464, 5842586 ####[address] [place] [address] Albumin/Globulin (S) [Mass conc ratio] 1.5 Normal 1.1-2.2 [facility] Comment on above: Performed By: #### 4617521, 37863129, 70, 074964942, 9366791, 0551668 ####[facility] [address] [place] [address] ALP [Catalytic activity/Vol] 53 Int._Unit/L Normal 21-98 [facility] Comment on above: Performed By: #### 6124189, 19640915, 70, 933011455, 6807351, 9234728 ####[address] [place] [address] ALT No additional P-5'-P [Catalytic activity/Vol] 21 Int._Unit/L Normal 6-46 [facility] Comment on above: Performed By: #### 6296555, 00691805, 29 82648, 455417952, 8629929, 1504838 ####[facility] [address] [place] [address] Anion gap [Moles/Vol] 12 mmol/L Normal 6-16 [facility] Comment on above: Performed By: #### 4637009, 57400246, 29 74684, 896946638, 0913636, 6008962 ####[facility] [address] [place] [address] AST [Catalytic activity/Vol] 26 Int._Unit/L Normal 5-43 [facility] Comment on above: Performed By: #### 7344181, 74742263, 29 14459, 624741368, 6996549, 4877424 ####[facility] [address] [place] [address] Bilirubin [Mass/Vol] 0.9 mg/dL Normal 0.0-1.1 [facility] Comment on above: Performed By: #### 3702384, 07603479, 29 48618, 163552949, 4544000, 8135163 ####[facility] [address] [place] [address] Calcium [Mass/Vol] 9.7 mg/dL Normal 8.9-11.1 [facility] Comment on above: Performed By: #### 9001141, 55702074, 29 68837, 213515883, 1732125, 0903505 ####[facility] [address] [place] [address] Chloride [Moles/Vol] 103 mmol/L Normal 101-111 [facility] Comment on above: Performed By: #### 3920584, 89985040, 29 42405, 602957673, 2970957, 6581227 ####[facility] [address] [place] [address] CO2 [Moles/Vol] 31 mmol/L Normal 21-31 [facility] Comment on above: Performed By: #### 5736132, 22388343, 29 43023, 098725663, 5793163, 4484999 ####[facility] [address] [place] [address] Creatinine [Mass/Vol] 0.9 mg/dL Normal 0.5-1.3 [facility] Comment on above: Performed By: #### 0007841, 41473371, 29 64359, 475903715, 6627607, 8943924 ####[address] [place] [address] Globulin (S) [Mass/Vol] 2.8 g/dL Normal 1.4-4.0 [facility] Comment on above: Performed By: #### 3998269, 08879783, 29 03231, 019659350, 3900714, 9667739 ####[facility] [address] [place] [address] Glucose [Mass/Vol] 104 mg/dL Normal 55-199 [facility] Comment on above: Result Comment: If this glucose result r epresents a fasting glucose, interpretation should refer to the following reference range: 55-99 mg/dL Performed By: #### 2 902285, 81473235, 1069735, 995762663, 5665266, 8639641 ####[facility] [address] [place] [address] Potassium [Moles/Vol] 4.7 mmol/L Normal 3.5-5.3 [facility] Comment on above: Performed By: #### 8429922, 26860112, 70, 988130100, 3988199, 6205170 ####[facility] [address] [place] [address] Protein [Mass/Vol] 7.0 g/dL Normal 6.0-7.8 [facility] Comment on above: Performed By: #### 4841899, 43588009, 29 15258, 547988877, 6925592, 5352948 ####[facility] [address] [place] [address] Sodium [Moles/Vol] 141 mmol/L Normal 135-145 [facility] Comment on above: Performed By: #### 1562508, 96090100, 29 32175, 859349423, 0134573, 0128059 ####[facility] [address] [place] [address] Urea nitrogen [Mass/Vol] 27 mg/dL High 5-21 [facility] Comment on above: Performed By: #### 2748575, 17905269, 29 48872, 624318393, 4068386, 9040227 ####[facility] [address] [place] [address] Urea nitrogen/Creatin ine [Mass ratio] 30 No Units High 10-20 [facility] Comment on above: Performed By: #### 3217416, 09382448, 29 12736, 880332778, 9523384, 8705765 ####[facility] [address] [place] [address] Consent for Immunizationon 0 12-19-2022 Consent for Immunization [id number]: 127 Normal [facility] Family Medicine Office/Clini c Noteon 12-19-2022 Family Medicine Office/Clinic Note Chief Complaint 6mo chk up, fasting, rf meds to wm/n History of Present Illness Pyl-ttropvu-otesnluoa diabetic presenting for routine follow-up. Reports that Accu-Cheks are averaging less than 110 no hypoglycemic symptoms denies polyuria polydipsia or visual disturbance. She enjoyed visit to [place] with her son and avoppxzz-rl-zhi earlier this winter. Does complain dysphagia, very nonspecific in complaint, interestingly stopped taking famotidine at least 2 years ago does not know why. Had a history of previous EGD 2013 with a dilation of the esophagus. She has lost some weight but is not as hungry as a living at home. Sleep is generally good. Mood is stable enjoys family who lives close by. Did follow with neurology last year for rather profound intention tremor. Tried several medications including primidone and propranolol did not tolerate. Other testing offered was quite invasive and she has declined. Has not dropped anything or had any injuries. Denies any anginal equivalents, no palpitations no syncope. We did discuss recommendation for tetanus vaccine agreeable today, should check on shingles vaccine coverage. Review of Systems PHQ Score Initial Depression Screen Score: 0 see HPI otherwise neg Physical Exam Vitals & Measurements HR: 68(Peripheral) RR: 16 BP: 124/70 SpO2: 94% HT: 60 in HT: 153 cm WT: 81 kg WT: 178.2 lb BMI: 34.6 Constitutional: Well-groomed adequately hydrated HEENT: Conjunctive a clear wearing corrective lenses pupils are symmetric. Grossly normal hearing. Neck is thick but supple no JVD no bruits. Adequate twenty-nine palms dentition with prominent torus palatini Cardiothoracic: Regular rate and rhythm distant heart sounds no murmur gallop or rub. Mild chronic nonpitting edema bilateral lower extremities pulses +1 Respiratory: CTA bilaterally Abdomen/GI: Obese nontender no organomegaly Genitourinary: Deferred Musculoskeletal: Short stature well-developed. Neurologic: Does demonstrate an intention tremor in the right hand greater than the left. Pharmacist In Charge Owner strength intact. Ambulatory without assistance Integument: Skin deeply tanned. Warm and dry no rash or lesions exposed surfaces no petechiae Psychiatric: Cooperative fairly talkative reasonable insight Assessment/Plan 1. CAD (coronary artery disease) (I25.10: Atherosclerotic heart disease of twenty-nine palms coronary artery without angina pectoris) Remain vigilant for anginal equivalents. Continues with good blood pressure control aspirin and use of statin. Ordered: Lab Specimen Collect 32243 2. Diabetic polyneuropathy associated with type 2 diabetes mellitus (E11.42: Type 2 diabetes mellitus with diabetic polyneuropathy) Reminded patient to always wear shoes. Avoid any activities that could cause skin breakdown. Monitor for any injuries. Ordered: Lab Specimen Collect 38553 3. Type 2 diabetes mellitus with hyperlipidemia, (E11.69: Type 2 diabetes mellitus with other specified complication)Type 2 diabetes mellitus with morbid obesity Reviewed with patient the importance of statin management and efforts at weight loss to prevent any progression of cardiovascular disease progression. Ordered: Lab Specimen Collect 94227 5. Mixed hyperlipidemia (E78.2: Mixed hyperlipidemia) Continue with high intensity statin Labs are drawn today results to follow Ordered: Lab Specimen Collect 96288 6. MCFP current use of oral hypoglycemic drug (Z79.84: MCFP (current) use of oral hypoglycemic drugs) Always monitor for hypoglycemia keeping a rapid acting glucose available Ordered: Lab Specimen Collect 62424 7. HTN - Hypertension (I10: Essential (primary) hypertension) The importance of the following were all reviewed with the patient: -Take Rx(s )as prescribed. There are simple Lifestyle Modifications that you can do to reduce your blood pressure. -Weight Reduction -Follow the DASH eating plan. More information about this eating plan can be found here: https://www.nhlbi.nih.go v/health/health-topics/t opics/dash -Reduce Sodium (Salt) Intake to 2000mg per day. -Use Moderation when consuming alcohol. - To improve your health we recommend increasing your level of moderate exercise to at least 2.5 hrs per week. For more information, please visit the CDC Exercise and Fitness Recommendations at www.cdc.gov/physicalacti vity/basics/index.htm 8. 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 She has not had any DVTs. Remain observant 9. 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 Patient defers any return to neurology. May certainly give consideration of going back to: If this bothers her enough. Exercise caution for possible injuries such as sharp objects heavy objects or hot things 10. GERD (gastroesophageal reflux disease) (K21.9: Gastro-esophageal reflux disease without esophagitis) Patient's mild discussion of dysphagia is concerning (more content not included)... Normal [facility] Comment on above: Result Comment: Electronically Signed By : JOSHUA LUCAS, Octavio\.br\Date and Time Signed: 12/19/22 12:19 EDT [id number] 12-19-2022 HbA1c (Bld) [Mass fraction] 6.0 % High <=5.9 [facility] Comment on above: Performed By: #### 6966990, 18543458, 29 19828, 458748966, 0521719, 6917322 ####[facility] [address] [place] [address] Lipid Panelon 12-19-2022 Cholesterol [Mass/Vol] 102 mg/dL Low 120-200 [facility] Comment on above: Performed By: #### 8889694, 50429132, 29 16579, 654612290, 2330335, 7872950 ####[facility] [address] [place] [address] Cholesterol in HDL [Mass/Vol] 46 mg/dL Invalid Interpretation Code [facility] Comment on above: Result Comment: HDL > or equal to 60 mg/ dL: Low cardiovascular risk HDL < 40 mg/dL : High cardiovascular risk Performed By: #### 2 665039, 34502877, 7716121, 649453229, 5381888, 5136525 ####[facility] [address] [place] [address] Cholesterol in LDL [Mass/Vol] 42 mg/dL Normal <=129 [facility] Comment on above: Performed By: #### 8113166, 62571564, 29 51238, 957467319, 0511232, 9434847 ####[facility] [address] [place] [address] Cholesterol in VLDL [Mass/Vol] 21 mg/dL Normal 7-40 [facility] Comment on above: Performed By: #### 1237732, 92306096, 29 81959, 358130777, 4554564, 5982767 ####[facility] [address] [place] [address] Triglyceride [Mass/Vol] 104 mg/dL Normal <=149 [facility] Comment on above: Performed By: #### 5389738, 01589758, 29 608[address], 585616040, 3813221, 2187359 ####[facility] [address] [place] [address] Patient Educationon 12-20-19 Patient Education Endocrinology Diabetes Mellitus and Foot Care Foot care is an important part of your health, especially when you have diabetes. Diabetes may cause you to have problems because of poor blood flow (circulation) to your feet and legs, which can cause your skin to: ? Become thinner and suction drum drier operator. ? Break more easily. ? Heal more slowly. ? Peel and crack. You may also have nerve damage (neuropathy) in your legs and feet, causing decreased feeling in them. This means that you may not notice minor injuries to your feet that could lead to more serious problems. Noticing and addressing any potential problems early is the best way to prevent future foot problems. How to care for your feet Foot hygiene ? Wash your feet daily with warm water and mild soap. Do not use hot water. Then, pat your feet and the areas between your toes until they are completely dry. Do not soak your feet as this can dry your skin. ? Trim your toenails straight across. Do not dig under them or around the cuticle. File the edges of your nails with an emery board or nail file. ? Apply a moisturizing lotion or petroleum jelly to the skin on your feet and to dry, brittle toenails. Use lotion that does not contain alcohol and is unscented. Do not apply lotion between your toes. Shoes and socks ? Wear clean socks or stockings every day. Make sure they are not too tight. Do not wear knee-high stockings since they may decrease blood flow to your legs. ? Wear shoes that fit properly and have enough cushioning. Always look in your shoes before you put them on to be sure there are no objects inside. ? To break in new shoes, wear them for just a few hours a day. This prevents injuries on your feet. Wounds, scrapes, corns, and calluses ? Check your feet daily for blisters, cuts, bruises, sores, and redness. If you cannot see the bottom of your feet, use a mirror or ask someone for help. ? Do not cut corns or calluses or try to remove them with medicine. ? If you find a minor scrape, cut, or break in the skin on your feet, keep it and the skin around it clean and dry. You may clean these areas with mild soap and water. Do not clean the area with peroxide, alcohol, or iodine. ? If you have a wound, scrape, corn, or callus on your foot, look at it several times a day to make sure it is healing and not infected. Check for: ? Redness, swelling, or pain. ? Fluid or blood. ? Warmth. ? Pus or a bad smell. General tips ? Do not cross your legs. This may decrease blood flow to your feet. ? Do not use heating pads or hot water bottles on your feet. They may burn your skin. If you have lost feeling in your feet or legs, you may not know this is happening until it is too late. ? Protect your feet from hot and cold by wearing shoes, such as at the beach or on hot pavement. ? Schedule a complete foot exam at least once a year (annually) or more often if you have foot problems. Report any cuts, sores, or bruises to your health care provider immediately. Where to find more information ? [employer]: www.diabetes.org ? Association of Diabetes Care & Education Specialists: www.diabeteseducator.org Contact a health care provider if: ? You have a medical condition that increases your risk of infection and you have any cuts, sores, or bruises on your feet. ? You have an injury that is not healing. ? You have redness on your legs or feet. ? You feel burning or tingling in your legs or feet. ? You have pain or cramps in your legs and feet. ? Your legs or feet are numb. ? Your feet always feel cold. ? You have pain around any toenails. Get help right away if: ? You have a wound, scrape, corn, or callus on your foot and: ? You have pain, swelling, or redness that gets worse. ? You have fluid or blood coming from the wound, scrape, corn, or callus. ? Your wound, scrape, corn, or callus feels warm to the touch. ? You have pus or a bad smell coming from the wound, scrape, corn, or callus. ? You have a fever. ? You have a red line going up your leg. Summary ? Check your feet every day for blisters, cuts, bruises, sores, and redness. ? Apply a moisturizing lotion or petroleum jelly to the skin on your feet and to dry, brittle toenails. ? Wear shoes that fit properly and have enough cushioning. ? If you have foot problems, report any cuts, sores, or bruises to your health care provider immediately. ? Schedule a complete foot exam at least once a year (annually) or more often if you have foot problems. This information is not intended to replace advice given to you by your health care provider. Make sure you discuss any questions you have with your health care provider. Document Revised: 02/10/2021 Document Reviewed: 02/10/2021 Elsevier Patient Education ? 2022 [employer] Normal [facility] eGFRon 12-19-2022 GFR/1.73 sq M.predicted among non-blacks MDRD (S/P/Bld) [Vol rate/Area] 65 mL/min/1.73 m2 Normal >=59 [facility] Comment on above: Order Comment: Order added by Discern Ex pert. Result Comment: Bag Machine Adjuster itzel kidney disease could be indicated at eGFR's of less than 60 mL/min/1.73m2. Kidney failure is indicated at less than 15 mL/min/1.73m2. Performed By: #### 2 454578, 11177336, 8045129, 777649689, 4249518, 9606880 ####[facility] [address] [place] [address] Outside Diabetes Eye Examon 11-06-2022 Outside Diabetes Eye Exam [id number]: 127 Normal [facility] Coding Summary.on 11-03-2022 Coding Summary. [id number] Ww+P GhlYWQ+FT3CLGPqV54bdWEjv V5hF4RNQHpQOerqVEKRNRiKI tFowaEiUD9kzDOpHITi IC8+ZD9nMKVuUrqftINik3B7 iQO8K29sij1fVUprkCP8DJHp MfLupjwbp6nzlFe2PTocSjvn OyBt ZZTyfL23CXJ2vT53Gd91mWJf dKZep2wczZu2CzRbQAAtYHU6 xQhaVDyhx2NuTRQzE12tlTJh c2U6 BDAnbFgpoEJqPvFalWA2uI5w KKidmedoh4kqtxvzQku9qg93 oZJlq1I2iYB6E7BccgT4WWWk bGQg SdimoFMSkJ1dvpdfr8uxxqgo XiAlPNTuITs1BNz3UVJxcCge VeOaFH21GFU8OBIdybTmO7Pp LWFs pLtiPtM0f7J4Vd9HP7JJQrik N9XAXZUOTFtjsAD+BM71it31 L0NhGicmKww6DTVjANU1qXQ5 aD0n DWDcZTiqs3S7zRU4O0LuezJn ji1ad4tuYYBfKFfvX07rgKYu o2Y9LNTroVJ3IQEqyDbaQeQb aG93 Oyc+FEGanLptj6DxLxwfx1eb y9dqbJw5PuieJFMdnaSpgFvs NEO5j8CoHb3fTBYpxGN8xVZ2 aD0i BzMeRzW5SRxxW500GgCeiKOl SybmN04xV5CiwIK+PHRyPjx0 YNCjmFvkMT3gI4GmRWAglhee bGVm oGfnYL7wWFTvqldmMDXzkT1u OJPrN9s8OkQuCpH6HKrjG9Me YQFmdnmrQc13xS1uKiNwHhQ6 MGlu K7BbzlW0UYOnkWVkFKtgCMX3 G06pe3P1PNCwEWNtACP9oDO6 pD8pnHnxyjcahHObnMtpsbIi dGlj PReiREypX736SYJhmDbzRzJr ZGluZyBEYXRlOiAgMDMvMzEv MjAyMzwvdGQ+GVHzAVT5cYyk PSAn mWBgCFcaZo2alIxxwKegCU9j OWHmfexcPIVigR7vMIFbbMXd uXviSM8rXLDbbsqxh363OqFf MHB0 QJKscJBcV8UhiQ3kYpVlFYBg EMOxV4ZfzDAoVAnaH678BQqe RnN2WHTkjiMqC4GzVHQrrTbt OiB0 g0G5Xg9Zo4RhxdhsU9WflIAx KgShQgjhLLz3X2WkNubonDQ+ LY62APIhHW17NUq7KXH4tZpt PSdi ZQLyP9ZqwI0bHfFuQJNkNDZi Oyc+PHRhYmxlIHdpZHRoPScx GYPnFdEnbQcoCO6kMx3rWCQz LWNv pBtwfGUwGtDxc7ouXJDlJNda XG8sjCphM3QvwXG9YNCvz9e9 Wg65B27bE7GyhLM+PGNvbCB3 aWR0 qI3eHwFrMoD3OGueV439BkHn pNQuZiydv2igm1fjpGk8XqZ0 DGJymePbbRqiPTW1k1SqAi93 Y29s IHdpZHRoPSIxNSUiIHZhbGln az3olC2gVs6+WRCpuYF6kFD7 tS7tSxOyQpV4LOqzD547FoPv cCIv Wzhhs2krn8skhSo2XjJvXSSk xzWtsGemFYM7m0CfBr55F3Ca jKyuw7HfJxe4wo13nQMha4G2 bGU9 B2YyDAWlxrfluUKfaVfoTP1r FLOfuxfoLCEpnT2iYIKjR1i2 RpRgAbR8XShoZ7FxdqU1STTq bGQg POZnrEPYjF9zyisny1ihqsgv MkQdHXKkVOz3NOg4QZFgsHxy EcShJIQ7ZhD3KSX0sCBkuX7j bGln iwindS1vIsw+NJB3iIQbwKJH VD3tSzyfnQI+TOXyJAU3mVsn RPeaXJBozO8tUTUtZ2p1KdSh LjA1 GVkoU2JixcQ0YMEvkPPoIPMc pEQVuJ4pcpknx6izgjagLmDb XVRjOWs9FUs8YAMlxSweJwQq ZWZ0 QzV5QSG7jFZduF8slWercvtc wU8iCom+KjgadPexRCA3LKe3 G8CtZqc8ZJRrvBkaOJ8yvHDs ZGlu Kj6wpBhrcIauOS4aGOCadjac a179GmQkm5vqYNTfhUDeBAfk VJY0P51di6Y3UTIrLDEsAGK3 dGV4 eD4jqWwanalmuKKkzKqoxoOq qFslXRmlMDonG777SXYcnSqg MjQbCBl2E4EyXus8SSIsjHrw ZT0n iBDhCHvlYa2ydAfccQxbWK4g RNAgjxlfx970LeScz6xuKUMh lQExRWuzWYT5D53cy5G1NKPu MDAw YKB0lTW2zS0oyNuzherlwSDl wTwjnpWuhSluNXlzCXrwN763 QIQooQttFpAyjPd4V4UqMxu1 ZCBz xMidIJ2tkXQqVJyuSq6bjPyg fZurJT9rYJSrucaco830RnRg s4psRUYqzKVkZMabTSJ4H25f b3I6 EYCwLNBeKSU9vUL2fA4vqWab bjogbGVmdDsgdmVydGljYWwt IVphT922UNIsdRfzUoVnhXmd bnQg LNwsTEv0M3VzXqrydME+PC90 BBUgPN51hJQuwYFcv1ufvQi0 BmJgXNBnVDQ7wYpqQNacp1Zk ZXIt F52kfZJlh4W3KPDmiOshtGPn PvXguMC0vC5nKKphqjzmt6rf mflgTdngc2brff48dL48O76p IHdp QTTeSTViCWCmENYuqYsfwx6n zU1aQn9+MPDlaNB4mFJ0yX0l IAImFzR8IHvzF968IyCvsSLm Pjxj n7wrk0cfoQj3PrX6BJGyniVe dIbqEVU0a1EzPn28Z98nMMae OVIbLLGmHTLwPQVtqGfcgh4z dG9w Ii8+QVDdeVA8dLS4cM2gBtUr CoD7BIgpP700KfPciKNlFoab R84sV0EtsPS+QYVdSns7ASMf dHls HD0fpFCnBCzrQq7uAES5BtOf AzXcZGmdV0BuCHRlzmxmbgia oQI9ORKvBATdmA63Rl1guXuq MTBw jFAZjV1zyttyi9okeztnUzVb FJQfWBa7SZv9DDJpkCpdCgMf TDQ7WsY7SXB8kNVlmT1veGbn bjog jS7hJ6KuXLTzcagpMd42bO8y NmMoCnR0OEhaGsa+QkFMTCwg D05GHcZbWnvazOC+PHRkIHN0 eWxl WFjtVRIjoB7hQHDcM2y4KxDq YnC3FPjrI6WkWXVdtwvjGx76 hQ0eWjYqWmA8KKfuH1OwgxI8 IDEw vHQhZOzwKKI3A89hu5J1VKTx PMGzNFC5rAR9sG8nrRuhirzt bGVmdDsgdmVydGljYWwtYWxp Z246 EBXvnOjzCoYiNyS8CvB6KCG9 X2SoWwk6IKLleMsvDS7qiHQo WWgfGw5hsPxrlWaiKD0bDVAm bjtw YTFqkP7tMHMvyTXsnYzsCF5b LCQchjsrh175DyEaRAL0CKRt xAUhT0DbsM6gHuYoMCKmCBGu O3Rl eBIrBAkzX533BCakJmD6PVZy phAyW1GjXMKpzJmfJxG9x9K7 Vl81NGIQMRXbedzffCA+PHRk IHN0 kTdeTEluVDPqnX9lYPBiF0f5 QgZzMuI8EBbyG6CaATMvcddn Yr11hQ7eQrZlOsX2SIzkG2Fb bnQ6 MISlaPAqANhvRNS0A32zp6P5 HQNuLVAhTWI3jTO2uW4txFvo bjogbGVmdDsgdmVydGljYWwt YWxp T843COQltMstNsPynEKjMZmc dGQ+WUQvSLR5gGpdZQibNIBa lU5wHXGsD7b1BwFtUmP2ETbd O3Bh CDIvgxegWa77iK1lJvKeUqB5 XXyyA1SbdiL9EAPmmWHeHNqe YTP7S75xb5E8XKLfBSRrOKP4 dGV4 nG8lgNcqikvdjPHtiDilecVq nIjpQQuhNZhkV583CPAqhTgm Ue13xJAfcMqpryV3G2NeRqkq dHI+ FB98SBVlFL81eQRlnIBhg2uf iFd5RcKzAFJvUYT1cSmcSDhc q5XyWRCmC61hnUEot8P0CSHw bGxh tJNdGvUgxES9eA1tZXqxloop c0xlfwalOxkqw4cwqy55zD97 U75fAExrTOIbIWSxNPGcUJQp bGln sl4pqE2fRk4+UBNerBC5uFC6 mV2cRjCjJiE0XBeiN478ZkHx bZNtEdocb1vzs4stfDv6NiZf JSIg crHtzFvdNSC7m8GeRk11U38a IHdpZHRoPSIyMCUiIHZhbGln aw2ojS7nWo1+YE3kv8nzsg28 cD48 dHI+UXHjPTY7aDpyNGsrROPx vL3hJYadGlJ4EQMqUbZryR68 wDHtLLahHv5lfAlgfAjfKJ1n NTBp fyoan672NkQpe2mrTENoeXZj ODvqVNH6X14my1P8MTOeMBWi VFZ8sNE7zW7qoAmxsjviuPEw dDsg iuNwhBobMSnuARscY676PBZe gHjpGeLvdXHyY6apaxLCUJ0n OjwvdGQ+CHRnZUO7hJsxZLqo YWRk dV4aDEYmH7k8AoTqJdH6JLcl G2UipvW1SRAxgVOyQWVmrNXJ lB8kvpbhr3jhpnviLwFnEURv MDt0 PXj5YAMbqKcoQwMtJQF6ZjO5 FDU5pDZsyF7rjCmcifdqmK3l Oyc+RklOOjwvdGQ+PHRkIHN0 eWxl EKbvQYJutN1mNOSrV3l8TtWf QnA5VFprL5ZdzsF4TBHjfHLi OCZccKOWkP1fftzpd0mbfvvw IzAw RHMwTRm6QVy8XTYhmTbaNyMd DSB5FuX8HUT4hYOjxD6zaLat gukprS4rHbf+TVJOOjwvdGQ+ PHRk FZZ9rCtiFAzqMOHzzN7rIKJx I8r2HySzGgS0PJqyF7ChzdE9 VBHuzZWiCMPijGEZrT1vqysx b2xv ycztElKhQXIyFIl1VJq6WRYk gNlfGoAzWAM2GnH5ZGV7mLYp xT5fqUftngsxxD6kPyp+UGF5 ZXI6 SO63MM29F2XvVwysmZSlxST+ PHRhYmxlIHdpZHRoPScxMDAl FhXgcWgzNT4wAz8bODXrVMVd bGxh cHNlOiBj (more content not included)... Normal [facility] Blood Urea Nitrogenon 2020 Urea nitrogen [Mass/Vol] 18 mg/dL Normal 04-28 [facility] Comment on above: Order Comment: PT IS NOT FASTING Performed By: #### B UN, CBC, CREAT, LYTES #### [address] Complete Blood Count Auto Di ffon 01-25-2021 Basophils (Bld) [#/Vol] 0.0 10*3/uL Normal 0.0-0.2 [facility] Comment on above: Result Comment: PERFORMED BY: [place] [address] PATHOLOGIST FISH BAIT PROCESSING SUPERVISOR NAJMA ZUNIGA M.D. Performed By: #### B UN, CBC, CREAT, LYTES #### [address] Basophils/100 WBC (Bld) 0.9 % Normal . [facility] Comment on above: Performed By: #### BUN, CBC, CREAT, LYTE S #### [address] Eosinophils (Bld) [#/Vol] 0.2 10*3/uL Normal 0.0-0.45 [facility] Comment on above: Performed By: #### BUN, CBC, CREAT, LYTE S #### [address] Eosinophils/100 WBC (Bld) 4.2 % Normal . [facility] Comment on above: Performed By: #### BUN, CBC, CREAT, LYTE S #### [address] Erythrocyte distribution width (RBC) [Ratio] 14.4 % Normal 11.9-15.3 [facility] Comment on above: Performed By: #### BUN, CBC, CREAT, LYTE S #### [address] Hematocrit (Bld) [Volume fraction] 36.8 % Normal 34.0-46.4 [facility] Comment on above: Performed By: #### BUN, CBC, CREAT, LYTE S #### [address] Hemoglobin (Bld) [Mass/Vol] 12.6 g/dL Normal 11.8-15.4 [facility] Comment on above: Performed By: #### BUN, CBC, CREAT, LYTE S #### [address] Lymphocytes (Bld) [#/Vol] 1.2 10*3/uL Normal 1.00-4.8 [facility] Comment on above: Performed By: #### BUN, CBC, CREAT, LYTE S #### [address] Lymphocytes/100 WBC (Bld) 22.8 % Normal . [facility] Comment on above: Performed By: #### BUN, CBC, CREAT, LYTE S #### [address] MCH (RBC) [Entitic mass] 31.1 pg Normal 24.7-34.3 [facility] Comment on above: Performed By: #### BUN, CBC, CREAT, LYTE S #### [address] MCV (RBC) [Entitic vol] 91.3 fL Normal 80-100 [facility] Comment on above: Performed By: #### BUN, CBC, CREAT, LYTE S #### [address] Mean Corpuscular HGB Conc 34.1 g/dL Normal 32.0-35.0 [facility] Comment on above: Performed By: #### BUN, CBC, CREAT, LYTE S #### [address] Monocytes (Bld) [#/Vol] 0.6 10*3/uL Normal 0.0-0.8 [facility] Comment on above: Performed By: #### BUN, CBC, CREAT, LYTE S #### [address] Monocytes/100 WBC (Bld) 12.1 % Normal . [facility] Comment on above: Performed By: #### BUN, CBC, CREAT, LYTE S #### [address] Neutrophils (Bld) [#/Vol] 3.1 10*3/uL Normal 1.8-7.7 [facility] Comment on above: Performed By: #### BUN, CBC, CREAT, LYTE S #### [place] [address] [place] Neutrophils/100 WBC (Bld) 60.0 % Normal . [facility] Comment on above: Performed By: #### BUN, CBC, CREAT, LYTE S #### [place] [address] [place] Nucleated RBC/100 WBC (Bld) [Ratio] 0.2 % Normal 0-0.5 [facility] Comment on above: Performed By: #### BUN, CBC, CREAT, LYTE S #### [address] Platelet mean volume (Bld) [Entitic vol] 8.9 fL Normal 6.3-10.7 [facility] Comment on above: Performed By: #### BUN, CBC, CREAT, LYTE S #### [address] Platelets (Bld) [#/Vol] 254 10*3/uL Normal 150-450 [facility] Comment on above: Performed By: #### BUN, CBC, CREAT, LYTE S #### [address] RBC (Bld) [#/Vol] 4.03 10*6/uL Normal 3.60-5.00 [facility] Comment on above: Performed By: #### BUN, CBC, CREAT, LYTE S #### [address] WBC (Bld) [#/Vol] 5.1 10*3/uL Normal 4.5-11.0 [facility] Comment on above: Performed By: #### BUN, CBC, CREAT, LYTE S #### [address] Creatinineon 01-25-2021 Creatinine [Mass/Vol] 0.83 mg/dL Normal 0.44-1.03 [facility] Comment on above: Order Comment: PT IS NOT FASTING Performed By: #### B UN, CBC, CREAT, LYTES #### [address] Estimated GFR ( Harika > 60 Normal [facility] Comment on above: Order Comment: PT IS NOT FASTING Result Comment: GFR estimated reference range: According to KDOQI guidelines, <60 ml/min/1.73m2 is sufficient to diagnose a patient with chronic kidney disease. PERFORMED BY: [place] [address] PATHOLOGIST FISH BAIT PROCESSING SUPERVISOR NAJMA ZUNIGA M.D. Performed By: #### B UN, CBC, CREAT, LYTES #### [facility] [address] Estimated GFR (Non- Am > 60 [facility] Comment on above: Order Comment: PT IS NOT FASTING Performed By: #### B UN, CBC, CREAT, LYTES #### [facility] [address] ECG 12 lead ECGon 01-25-2021 ECG 12 lead ECG [facility] Main [place] [address] [place] [address] Electrocardiograph Report Signed Patient: Carlos A Sow MR#: [id number] : 1945 Acct:[id number] Age/Sex: 75 / F ADM Date: 01/25/21 Loc: [place] Room: Type: [facility] Attending Dr: Cassi Zazueta MD Ordering Provider: Cassi Zazueta MD Date of Service: 01/25/21 ECG/ECG 12 lead ECG: Pre Op Copies to: Test Reason : Blood Pressure : / mmHG Vent. Rate : 070 BPM Atrial Rate : 070 BPM P-R Int : 166 ms QRS Dur : 114 ms QT Int : 400 ms P-R-T Axes : 065 -48 012 degrees QTc Int : 432 ms Normal sinus rhythm with sinus arrhythmia Left anterior fascicular block Nonspecific intraventricular conduction delay Abnormal ECG When compared with ECG of 01-FEB-2018 13:28, No significant change was found Confirmed by DANIELA KEITH DO ([id number]) on 01/26/2021 12:55:23 PM Referred By: Electronically Signed By:DANIELA KEITH DO Transcribed By: MUS Dictated By: Daniela Keith DO 01/25/21 1351 Signed By: 01/26/21 1255 [facility] Electrolyteson 01-25-2021 Chloride [Moles/Vol] 98 mmol/L Normal 95-114 [facility] Comment on above: Order Comment: PT IS NOT FASTING Performed By: #### B UN, CBC, CREAT, LYTES #### [facility] [address] [place] [address] [place] CO2 [Moles/Vol] 30.5 mmol/L High 22.0-30.0 [facility] Comment on above: Order Comment: PT IS NOT FASTING Performed By: #### B UN, CBC, CREAT, LYTES #### [facility] [address] [place] [id number] [facility] Potassium [Moles/Vol] 4.0 mmol/L Normal 3.5-5.1 [facility] Comment on above: Order Comment: PT IS NOT FASTING Performed By: #### B UN, CBC, CREAT, LYTES #### [facility] [address] [place] [id number] [facility] Sodium [Moles/Vol] 140 mmol/L Normal 136-146 [facility] Comment on above: Order Comment: PT IS NOT FASTING Performed By: #### B UN, CBC, CREAT, LYTES #### [facility] [address] CNOVon 12-19-2017 CNOV Office Visit (VASSFT) JOHANA SOW ([id number]) 1945 [facility] Time Provider Department12/19/17 10:00 AM MIKY GLEZ During your visit today, we recorded the following information about you: Pulse Respiration Blood pressure 73/minute 16/minute 120/57Miky Glez MD 12/19/2017 10:42 AM [facility] Department of Cardiovascular MedicineOUTPATIENT VISIT DATE December 19, 2017OUTPATIENT VISIT TYPEESTABLISHEDPRFRYE REGIONAL MEDICAL [facility] ALEXANDER CAMPUSRY CARE PHYSICIAN:Nakia Garcia MD[address] [place] [address]Zgcfd: [phone]: [phone] PHYSICIANSOPHIE [place] [address]UZLDN COMPLAINT:No chief complaint on file.HISTORY OF PRESENT ILLNESS:Carlos A Sow was referred for consultation by self referral. Opinions andrecommendations in this consultation will be transmitted back to the referringphysician by [facility] notes or via mail.Ms. Sow is a 72 year old female who is seen today for evaluation of right legvaricose veins which bother her over her thigh. Present for over the pastmonth. She has been wearing compression stockings.DUS showed extensive and tortuous varicose veins extending from the rightlateral accessory saphenous vein, 5mm with 2.4 sec of reflux. Right SSV 3mmwith over 2.4 sec of reflux.History of sclerotherapy with Dr Way on the right leg. Current varicose veinsare at a new location.DUS 10/2016 negative for RLE DVT.Nonsmoker.Multiple surgeries, including bilateral knee replacements, hysterectomy. 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.- Unspecified asthma(493.90)- Unspecified cataract Cataract- Unspecified essential hypertension Essential hypertension- Unspecified urinary incontinence Incontinence- Varicose vein of legPAST SURGICAL HISTORYProcedure Laterality Date- PAST SURGICAL HISTORY OF Bladder suspension- PAST SURGICAL HISTORY OF Neck surgery, cervical with metal plate or maría.- PAST SURGICAL HISTORY OF TKuC- REMOVAL ADENOIDS,PRIMARY,<12 Y/O Adenoidectomy- REMOVAL GALLBLADDER Cholecystectomy- REMOVAL OF TONSILS,<12 Y/O Tonsillectomy- TOTAL ABDOM HYSTERECTOMY Hysterectomy, TILA, with salpingectomy- TOTAL KNEE REPLACEMENT right 1993 Knee replacement, totalSOCIAL HISTORYSocial HistorySubstance Use Topics- Smoking status: Never Smoker- Smokeless tobacco: Never Used- Alcohol use NoFAMILY HISTORYProblem Relation Age of Onset- Coronary Artery Disease Mother- Hypertension Mother- Hypotension [Other] [OTHER] Father- Cancer Mother Pancreas- DVT Mother bilateral LE- Diabetes Mother- blood clots [Other] [OTHER] SonALLERGIES:ALLERGIESAl lergen Reactions- Naprosyn [Naproxen] GI UpsetMEDICATIONS:metFORM IN (GLUCOPHAGE) 500 mg tablet Take 500 mg by mouth twice daily withmeals.atorvastatin (LIPITOR) 80 mg tablet Take 80 mg by mouth once daily.Calcium-Cholecalci ferol, D3, (CALCIUM 600 + D) 600-400 mg-unit ORAL Tab Takeby mouth.aspirin, enteric coated (ECOTRIN LOW STRENGTH) 81 mg ORAL EC tablet Take 1tablet by mouth once daily.Multivitamins-Mine rals-Lutein (CENTRUM SILVER) ORAL Tab Take one(1) tabletdaily.LISINOPRIL-H YDROCHLOROTHIAZIDE 20 MG-25 MG TAB Take one(1) tablet daily.REVIEW OF SYSTEMS:GENERAL: no acute distressAll other ROS: negativeI personally interviewed, confirmed and edited the above information asobtained by others.PHYSICAL EXAMINATION:BP 120/57 (BP Site: Left Arm, BP Position: Sitting, BP Cuff Size: Large Adult) Pulse 73 Resp 16 SpO2 97%General appearance: well nourished, alert and cooperative individual, in noacute distress.Neck: no JVDCoronary: regular rate and regular rhythmLower Extremities: Feet and toes warmPalp right DP pulseRight leg varicose veins extending from anterior aspect of the right thigh downto the proximal anterior legCARDIOVASCULAR MEDICINE TESTING:I have personally reviewed the DUS .IMPRESSION/PLAN:Ms. Sow is a 72 year old female with varicose veins of the right anterior legassociated with inflammation.She wishes to attempt at course of conservative therapy with compression.Follow up in 3 months for re-evaluation.Miky Glez, MICHELLEeferring Provider: NAKIA COON [[id number]]Allergies As of Date: 12/19/2017 Noted Allergy ReactionNAPROSYN (NAPROXEN) 08/24/2010 8 - GI UpsetDate Reviewed: 12/19/2017Reviewed by: Miky Glez - Fully AssessedPrimary Visit Diagnosis:Varicose veins of right lower extremity with inflammation [I83.11]Prescriptions as of 12/19/2017 Sig: METFORMIN 500 MG TABLET Take 500 mg by mouth twice da* ATORVASTATIN 80 MG TABLET Take 80 mg by mouth once jeanne* CALCIUM CARBONATE 600 MG (1,5* Take by mouth. ASPIRIN 81 MG TABLET,DELAYED * Take 1 tablet by mouth once d* KUOJNPUCHEJW-SMQDCVOD-IC TEIN * Take one(1) tablet daily. 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] INVALID FOR* EXOSTOSIS OF JAW [M27.8] INVALID FOR* SURGERY FOLLOWUP NOS [Z09] INVALID FOR* Radiculitis, lumbosacral [M54.17] INVALID FOR* Spinal stenosis, lumbar [M48.061] INVALID FOR*Disposition: Return in about 3 months (around 03/21/2018).Follow-up and Disposition History RecordedEncounter Number: [id number] Status:Closed by MIKY GLEZ MD on 12/19/17 Normal [facility] PROGRESSon 12-19-2017 PROGRESS HNO ID: [id number]: Miky GlezService: (none)Author Type: PhysicianType: Progress NotesFiled: 12/19/2017 10:42 AMNote Text:[facility] and V[facility] and [facility] Department of Cardiovascular MedicineOUTPATIENT VISIT DATE December 19, 2017OUTPATIENT VISIT TYPEESTABLISHEDPRFRYE REGIONAL MEDICAL CENTER ALEXANDER CAMPUSRY CARE PHYSICIAN:Nakia Garcia MD[address] [place], [place] [address]Xzckz: [phone]: [phone] PHYSICIANSOPHIE [place] [address]CYAFC COMPLAINT:No chief complaint on file.HISTORY OF PRESENT ILLNESS:Carlos A Sow was referred for consultation by self referral. Opinions andrecommendations in this consultation will be transmitted back to thereferring physician by [facility] notes or via mail.Ms. Sow is a 72 year old female who is seen today for evaluation ofright leg varicose veins which bother her over her thigh. Present for over the past month. She has been wearing compression stockings.DUS showed extensive and tortuous varicose veins extending from the rightlateral accessory saphenous vein, 5mm with 2.4 sec of reflux. Right SSV3mm with over 2.4 sec of reflux.History of sclerotherapy with Dr Way on the right leg. Current varicoseveins are at a new location.DUS 10/2016 negative for RLE DVT.Nonsmoker.Multiple surgeries, including bilateral knee replacements, hysterectomy..PAST MEDICAL HISTORYDiagnosis Date- Esophageal reflux Gastroesophageal reflux- PMH - PAST MEDICAL HISTORY OF Single G 04322-Y mutation identififed as cause of inherited thrombosisadn accounts for 20% of inherited thrombophilia.- Unspecified asthma(493.90)- Unspecified cataract Cataract- Unspecified essential hypertension Essential hypertension- Unspecified urinary incontinence Incontinence- Varicose vein of legPAST SURGICAL HISTORYProcedure Laterality Date- PAST SURGICAL HISTORY OF Bladder suspension- PAST SURGICAL HISTORY OF Neck surgery, cervical with metal plate or maría.- PAST SURGICAL HISTORY OF TKuC- REMOVAL ADENOIDS,PRIMARY,<12 Y/O Adenoidectomy- REMOVAL GALLBLADDER Cholecystectomy- REMOVAL OF TONSILS,<10 Y/O Tonsillectomy- TOTAL ABDOM HYSTERECTOMY Hysterectomy, TILA, with salpingectomy- TOTAL KNEE REPLACEMENT right 1994 Knee replacement, totalSOCIAL HISTORYSocial HistorySubstance Use Topics- Smoking status: Never Smoker- Smokeless tobacco: Never Used- Alcohol use NoFAMILY HISTORYProblem Relation Age of Onset- Coronary Artery Disease Mother- Hypertension Mother- Hypotension [Other] [OTHER] Father- Cancer Mother Pancreas- DVT Mother bilateral LE- Diabetes Mother- blood clots [Other] [OTHER] SonALLERGIES:ALLERGIESAl lergen Reactions- Naprosyn [Naproxen] GI UpsetMEDICATIONS:metFORM IN (GLUCOPHAGE) 500 mg tablet Take 500 mg by mouth twice daily withmeals.atorvastatin (LIPITOR) 80 mg tablet Take 80 mg by mouth once daily.Calcium-Cholecalci ferol, D3, (CALCIUM 600 + D) 600-400 mg-unit ORAL TabTake by mouth.aspirin, enteric coated (ECOTRIN LOW STRENGTH) 81 mg ORAL EC tablet Take 1tablet by mouth once daily.Multivitamins-Mine rals-Lutein (CENTRUM SILVER) ORAL Tab Take one(1) tabletdaily.LISINOPRIL-H YDROCHLOROTHIAZIDE 20 MG-25 MG TAB Take one(1) tablet daily.REVIEW OF SYSTEMS:GENERAL: no acute distressAll other ROS: negativeI personally interviewed, confirmed and edited the above information asobtained by others.PHYSICAL EXAMINATION:BP 120/57 (BP Site: Left Arm, BP Position: Sitting, BP Cuff Size: LargeAdult) Pulse 73 Resp 16 SpO2 97%General appearance: well nourished, alert and cooperative individual, inno acute distress.Neck: no JVDCoronary: regular rate and regular rhythmLower Extremities: Feet and toes warmPalp right DP pulseRight leg varicose veins extending from anterior aspect of the right thighdown to the proximal anterior legCARDIOVASCULAR MEDICINE TESTING:I have personally reviewed the DUS .IMPRESSION/PLAN:Ms. Sow is a 72 year old female with varicose veins of the rightanterior leg associated with inflammation.She wishes to attempt at course of conservative therapy with compression.Follow up in 3 months for re-evaluation.Miky Glez MD Normal [facility] US-US LE Venous Duplex Insuf ficiency Right IMPORTon 12-05-2017 US-US LE Venous Duplex Insufficiency Right IMPORT Images were obtained outside of [facility] [id number] Normal [facility] CNOVon 11-28-2017 CNOV Office Visit (VASSFT) JOHANA SOW ([id number]) 1945 FDate Time Provider Department11/28/17 10:15 AM MIKY GLEZ During your visit today, we recorded the following information about you: Pulse Respiration Blood pressure Weight 114/minute 16/minute 117/71 87.5 kgMiky Glez MD 11/28/2017 10:25 AM [facility] Department of Cardiovascular MedicineOUTPATIENT VISIT DATE November 28, 2017OUTPATIENT VISIT TYPENEWPRIMARY CARE PHYSICIAN:Nakia Garcia MD[address] [place], [place] [address]Mbqrh: [phone]: [phone] Leatha Garcia MD[address] [place] [id number] COMPLAINT:No chief complaint on file.HISTORY OF PRESENT ILLNESS:Carlos A Sow was referred for consultation by self referral. Opinions andrecommendations in this consultation will be transmitted back to the referringphysician by [facility] notes or via mail.Ms. Sow is a 72 year old female who is seen today for evaluation of right legvaricose veins.This has been bothering her for over the past month. She has worn compressionstockings in the past, has provided some relief.History of sclerotherapy with Dr Way on the right leg. Current varicose veinsare at a new location.DUS 10/2016 negative for RLE DVT.Nonsmoker.Multiple surgeries, including bilateral knee replacements, hysterectomy. 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 adnaccounts for 20% of inherited thrombophilia.- Unspecified asthma(493.90)- Unspecified cataract Cataract- Unspecified essential hypertension Essential hypertension- Unspecified urinary incontinence Incontinence- Varicose vein of legPAST SURGICAL HISTORYProcedure Laterality Date- PAST SURGICAL HISTORY OF Bladder suspension- PAST SURGICAL HISTORY OF Neck surgery, cervical with metal plate or maría.- PAST SURGICAL HISTORY OF TKuC- REMOVAL ADENOIDS,PRIMARY,ANDlt;1 1 Y/O Adenoidectomy- REMOVAL GALLBLADDER Cholecystectomy- REMOVAL OF TONSILS,ANDlt;10 Y/O Tonsillectomy- TOTAL ABDOM HYSTERECTOMY Hysterectomy, TILA, with salpingectomy- TOTAL KNEE REPLACEMENT right 1993 Knee replacement, totalSOCIAL HISTORYSocial HistorySubstance Use Topics- Smoking status: Never Smoker- Smokeless tobacco: Never Used- Alcohol use NoFAMILY HISTORYProblem Relation Age of Onset- Coronary Artery Disease Mother- Hypertension Mother- Hypotension [Other] [OTHER] Father- Cancer Mother Pancreas- DVT Mother bilateral LE- Diabetes Mother- blood clots [Other] [OTHER] SonALLERGIES:ALLERGIESAl lergen Reactions- Naprosyn [Naproxen] GI UpsetMEDICATIONS:metFORM IN (GLUCOPHAGE) 500 mg tablet Take 500 mg by mouth twice daily withmeals.atorvastatin (LIPITOR) 80 mg tablet Take 80 mg by mouth once daily.Calcium-Cholecalci ferol, D3, (CALCIUM 600 + D) 600-400 mg-unit ORAL Tab Takeby mouth.aspirin, enteric coated (ECOTRIN LOW STRENGTH) 81 mg ORAL EC tablet Take 1tablet by mouth once daily.Multivitamins-Mine rals-Lutein (CENTRUM SILVER) ORAL Tab Take one(1) tabletdaily.LISINOPRIL-H YDROCHLOROTHIAZIDE 20 MG-25 MG TAB Take one(1) tablet daily.REVIEW OF SYSTEMS:GENERAL: no acute distressAll other ROS: negativeI personally interviewed, confirmed and edited the above information asobtained by others.PHYSICAL EXAMINATION:BP 117/71 (BP Site: Right Arm, BP Position: Sitting, BP Cuff Size: Large Adult) Pulse 114 Resp 16 Wt 87.5 kg (193 lb) SpO2 96% BMI 34.19 kg/b6Jhqmzyb appearance: well nourished, alert and cooperative individual, in noacute distress. Obese.Neck: no bruitsPulmonary: Lungs clear to auscultation bilaterally.Coronary: regular rate and regular rhythmUpper Extremities: palp radial pulses bilaterallyLower Extremities: Feet and toes warmPalp DP pulses bilaterallyVaricose veins of the right leg, proximal thigh and right lateral knee,extending to the leg. Scattered vv of the left leg. Scattered reticular veinsof both legs.Neuro: Awake, alert, and oriented., Gait normal. Sensation grossly intact., CNII-XII grossly intact.CARDIOVASCULAR MEDICINE TESTING:There were no tests performed for review.IMPRESSION/PLAN:Darrel Sow is a 72 year old female with symptomatic right legs with inflammation.Compression stockings ordered. Elevate legs when at rest.DUS to assess for venous insufficiency.Follow up with test results.Mirella Alan Provider: NAKIA COON [[id number]]Allergies As of Date: 11/28/2017 Noted Allergy ReactionNAPROSYN (NAPROXEN) 08/24/2010 8 - GI UpsetDate Reviewed: 11/28/2017Reviewed by: Miky Glez - Fully AssessedPrimary Visit Diagnosis:Varicose veins of right lower extremity with inflammation [I83.11]Order(s):US VENOUS INCOMPETENCY [facility] [[id number]] Order #: [id number] FUTUREPrescriptions as of 11/28/2017 Sig: METFORMIN 500 MG TABLET Take 500 mg by mouth twice da* ATORVASTATIN 80 MG TABLET Take 80 mg by mouth once jeanne* CALCIUM CARBONATE 600 MG (1,5* Take by mouth. ASPIRIN 81 MG TABLET,DELAYED * Take 1 tablet by mouth once d* [id number] TEIN * Take one(1) tablet daily. 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 Disc: Reason for discontinue is not on file. gabapentin (NEURONTIN) 300 mg ORAL c* 120 * 2 12/30/2010 11/28/2017 Route: OTHER Sig: take one cap at bedtime for 5 days then two caps at bedtime for 5 days then one cap in the morning and then two caps for 5 days then one cap twice a day and two caps at bedtime as tolerated Disc: Reason for discontinue is not on file. mometasone (NASONEX) 50 mcg/Actuatio* 0 10/18/2010 11/28/2017 Class: Historical Med Route: NASAL Sig: Use 1 [place] in the nose. Use one spray in each nose as needed Disc: Reason for discontinue is not on file. pravastatin (PRAVACHOL) 20 mg ORAL t* 0 10/18/2010 11/28/2017 Class: Historical Med Route: ORAL Sig: Take 1 tablet by mouth once daily. Disc: Reason for discontinue is not on file.Disposition: Return in about 2 weeks (around 12/12/2017).Follow-up and Disposition History RecordedEncounter Number: [id number] Status:Closed by MIKY GLEZ MD on 11/28/17 Normal [facility] PROGRESSon 11-28-2017 PROGRESS HNO ID: [id number]: Miky GlezService: (none)Author Type: PhysicianType: Progress NotesFiled: 11/28/2017 10:25 AMNote Text:[facility] Institute[facility] Department of Cardiovascular MedicineOUTPATIENT VISIT DATE November 28, 2017OUTPATIENT VISIT TYPENEWPRIMARY CARE PHYSICIAN:Nakia Garcia MD[address] [place], [place] [address]Ptzks: [phone]: [phone] PHYSICIANSOPHIE [place] [id number] COMPLAINT:No chief complaint on file.HISTORY OF PRESENT ILLNESS:Carlos A Sow was referred for consultation by self referral. Opinions andrecommendations in this consultation will be transmitted back to thereferring physician by [facility] notes or via mail.Ms. Sow is a 72 year old female who is seen today for evaluation ofright leg varicose veins.This has been bothering her for over the past month. She has worncompression stockings in the past, has provided some relief.History of sclerotherapy with Dr Way on the right leg. 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.- Unspecified asthma(493.90)- Unspecified cataract Cataract- Unspecified essential hypertension Essential hypertension- Unspecified urinary incontinence Incontinence- Varicose vein of legPAST SURGICAL HISTORYProcedure Laterality Date- PAST SURGICAL HISTORY OF Bladder suspension- PAST SURGICAL HISTORY OF Neck surgery, cervical with metal plate or maría.- PAST SURGICAL HISTORY OF TKuC- REMOVAL ADENOIDS,PRIMARY,<12 Y/O Adenoidectomy- REMOVAL GALLBLADDER Cholecystectomy- REMOVAL OF TONSILS,<12 Y/O Tonsillectomy- TOTAL ABDOM HYSTERECTOMY Hysterectomy, TILA, with salpingectomy- TOTAL KNEE REPLACEMENT right 1993 Knee replacement, totalSOCIAL HISTORYSocial HistorySubstance Use Topics- Smoking status: Never Smoker- Smokeless tobacco: Never Used- Alcohol use NoFAMILY HISTORYProblem Relation Age of Onset- Coronary Artery Disease Mother- Hypertension Mother- Hypotension [Other] [OTHER] Father- Cancer Mother Pancreas- DVT Mother bilateral LE- Diabetes Mother- blood clots [Other] [OTHER] SonALLERGIES:ALLERGIESAl lergen Reactions- Naprosyn [Naproxen] GI UpsetMEDICATIONS:metFORM IN (GLUCOPHAGE) 500 mg tablet Take 500 mg by mouth twice daily withmeals.atorvastatin (LIPITOR) 80 mg tablet Take 80 mg by mouth once daily.Calcium-Cholecalci ferol, D3, (CALCIUM 600 + D) 600-400 mg-unit ORAL TabTake by mouth.aspirin, enteric coated (ECOTRIN LOW STRENGTH) 81 mg ORAL EC tablet Take 1tablet by mouth once daily.Multivitamins-Mine rals-Lutein (CENTRUM SILVER) ORAL Tab Take one(1) tabletdaily.LISINOPRIL-H YDROCHLOROTHIAZIDE 20 MG-25 MG TAB Take one(1) tablet daily.REVIEW OF SYSTEMS:GENERAL: no acute distressAll other ROS: negativeI personally interviewed, confirmed and edited the above information asobtained by others.PHYSICAL EXAMINATION:BP 117/71 (BP Site: Right Arm, BP Position: Sitting, BP Cuff Size: LargeAdult) Pulse 114 Resp 16 Wt 87.5 kg (193 lb) SpO2 96% BMI 34.19kg/w4Dxfnwep appearance: well nourished, alert and cooperative individual, inno acute distress. Obese.Neck: no bruitsPulmonary: Lungs clear to auscultation bilaterally.Coronary: regular rate and regular rhythmUpper Extremities: palp radial pulses bilaterallyLower Extremities: Feet and toes warmPalp DP pulses bilaterallyVaricose veins of the right leg, proximal thigh and right lateral knee,extending to the leg. Scattered vv of the left leg. Scattered reticularveins of both legs.Neuro: Awake, alert, and oriented., Gait normal. Sensation grosslyintact., CN II-XII grossly intact.CARDIOVASCULAR MEDICINE TESTING:There were no tests performed for review.IMPRESSION/PLAN:Darrel Sow is a 72 year old female with symptomatic right legs withinflammation.Sil elias stockings ordered. Elevate legs when at rest.DUS to assess for venous insufficiency.Follow up with test results.Miky Glez MD Normal [facility] Vital Signs Date Time Vital Sign Value Performing Clinician Faci lity 10-11-2023 13:56-0500 Body height 154.9 cm Raven Macias MD Work Phone: [facility] 10-11-2023 13:56-0500 Body mass index (BMI) [Ratio] 35.16 kg/m2 Raven Macias MD Work Phone: [facility] 10-11-2023 13:56-0500 Body weight 84.41 kg Raven Macias MD Work Phone: [facility] 10-11-2023 13:56-0500 Diastolic blood pressure 83 mm[Hg] Raven Macias MD Work Phone: [facility] 10-11-2023 13:56-0500 Heart rate 92 /min Raven Macias MD Work Phone: [facility] 10-11-2023 13:56-0500 Systolic blood pressure 152 mm[Hg] Raven Macias MD Work Phone: [facility] 10-17-2021 12:56-0400 Diastolic blood pressure 120 mm[Hg] Colt Swenson MD Work Phone: [facility] 10-17-2021 12:56-0400 Heart rate 88 /min Colt Swenson MD Work Phone: [facility] 10-17-2021 12:56-0400 Respiratory rate 18 /min Colt Swenson MD Work Phone: [facility] 10-17-2021 12:56-0400 SaO2% (BldA) [Mass fraction] 96 % Colt Swenson MD Work Phone: [facility] 10-17-2021 12:56-0400 Systolic blood pressure 148 mm[Hg] Clot Swenson MD Work Phone: [facility] Encounters Encounter Date Encounter Type Care Provider Facility Start: 10-30-2023 End: 10-31-2023 ambulatory [facility] Facility:[facility] Start: 10-29-2023 Orders Only Raven Macias MD Work Phone: [facility] Comment on above: Essential tremor (Pr imary Dx) Start: 10-26-2023 End: 10-26-2023 ambulatory Raven Macias MD Work Phone: [facility] Comment on above: Deficit in activitie s of daily living (ADL) (Primary Dx); Benign essential tremor Impaired functional mobility, balance, gait, and endurance (Primary Dx) Start: 10-12-2023 End: 10-13-2023 ambulatory [facility] Start: 10-11-2023 End: 10-11-2023 ambulatory [facility] Start: 10-11-2023 End: 10-11-2023 Office outpatient visit 40 minutes Raven Macias MD Work Phone: [facility] Comment on above: Benign essential lisa mor (Primary Dx) Start: 10-04-2023 End: 10-05-2023 ambulatory DO Mara Hernandez [facility] Start: 09-25-2023 End: 09-26-2023 ambulatory Colton Luke Facility:[facility] Start: 09-20-2023 End: 09-21-2023 ambulatory [facility] Start: 07-02-2023 End: 07-02-2023 ambulatory RONALD FORRESTER Not Available Start: 06-19-2023 End: 06-20-2023 ambulatory [facility] Facility:[facility] Start: 05-14-2023 End: 05-15-2023 ambulatory [facility] Start: 05-14-2023 End: 05-14-2023 Emergency department patient visit Danish Pires Facility:[facility] Start: 04-17-2023 End: 04-18-2023 ambulatory TYLER PETER Facility:[facility] Start: 04-10-2023 Transcribe Orders Octavio Winters MD Work Phone: [facility] Comment on above: Action tremor (Prima ry Dx) Start: 12-19-2022 End: 12-20-2022 ambulatory Octavio WINTERS Facility:[facility] Start: 03-06-2022 End: 03-06-2022 ambulatory OCTAVIO WINTERS [facility] Start: 11-11-2021 Orders Only Joie Tomas CNP Work Phone: [facility] Comment on above: Essential tremor (Pr imary Dx) Start: 10-17-2021 End: 10-17-2021 Office outpatient new 60 minutes Colt Swenson MD Work Phone: [facility] Comment on above: Essential tremor (Pr imary Dx); Tremor Start: 08-17-2021 Transcribe Orders Colt Swenson MD Work Phone: [facility] Comment on above: Tremor (Primary Dx) Start: 12-19-2017 End: 12-20-2017 Ambulatory MIKY [facility] Start: 11-28-2017 End: 11-30-2017 Ambulatory MIKY VILCHISRAHUL [facility] Plan of Treatment Date Care Activity Detail Author Start: 12-19-2032 Tetanus vaccination Tetanus: Every 1 0yrs [facility] Start: 10-13-2024 ambulatory Ambulatory Facility:[facility] Start: 12-17-2023 ambulatory Ambulatory Facility:[facility] Start: 10-29-2023 End: 10-29-2023 Patient encounter procedure 10/29/2023 2:00 PM EDT Appointment [facility] [address] [place] [address] Raven Macias MD [address] [facility] [address] [place] [address] [facility] [place] Start: 04-06-2023 COVID-19 Vaccine ( season) COVID-19 Vaccine ( season) [facility] Start: 04-06-2023 Influenza vaccination Sequenti al Influenza Vaccine (#1) [facility] Start: 08-17-2021 COVID-19 Vaccine (4 - Moderna series) COVID-19 Vaccine (4 - Moderna series) [facility] Start: 05-18-2017 Pneumococcal Vaccine : Age 65+ (2 - PPSV23 or PCV20) Pneumococcal Vaccine: Age 65+ (2 - PPSV23 or PCV20) [facility] Start: 05-18-2017 Pneumococcal Vaccine : Age 65+ (2 of 2 - PPSV23 or PCV20) Pneumococcal Vaccine: Age 65+ (2 of 2 - PPSV23 or PCV20) [facility] Start: 05-18-2017 Pneumococcal Vaccine : Age 65+ (2 of 2 - PPSV23) Pneumococcal Vaccine: Age 65+ (2 of 2 - PPSV23) [facility] Start: 2008 Fall risk assessment Falls Risk Asse ssment [facility] Start: 1993 Administration of he rpes zoster vaccine Zoster Vaccines (1 of 2) [facility] Start: 1983 Screening for malign ant neoplasm of breast Mammogram [facility] Start: 1961 Hepatitis C screening Hepatitis C Sc reening [facility] Start: 1955 Depression screening using PHQ-9 (Patient Health Questionnaire 9) score Depression Screening (PHQ-2/9) [facility] Start: 1953 Diabetic foot examination [facility] Start: 1953 Glaucoma screening Diabetic Eye Exam [facility] Start: 1953 Microalbumin measurement, urine, quantitative Urine Microalbumin [facility] Start: 1953 Ophthalmic examinati on and evaluation Ophthalmology Exam [facility] Start: 1953 Urine screening for protein Urine Microalbumin [facility] Start: 1946 History and physical examination, annual for health maintenance Wellness Visit [facility] Start: 1945 Hemoglobin A1c measurement A1C [facility] Start: 1945 Screening for osteoporosis Dexa Scan [facility] Start: 1943 Tetanus vaccination Tetanus: Every 1 0yrs [facility] End: 10-10-2024 CT Head WO contrast CT Head Or Brain Without Contrast Imaging Routine Benign essential tremor 1 Occurrences starting 10/11/2023 until 10/10/2024 [facility] Work Phone: Comment on above: 1 Occurrences starti ng 10/11/2023 until 10/10/2024 Payers Date Payer Category Payer Private Health Insurance [id number] 2021 Private Health Insurance [facility] [id number] 2021 Private Health Insurance [facility] [id number] 2008 Medicare MEDICARE MEDICAR E PART A & B [id number] 2008-Present [phone] CGS [id number] [place] [address] [place] [place] [address] [id number] 2008 Medicare [id number] 1945 Unknown [id number] [id number] .900 1945 Unknown [id number] 2.16.840.1.813253.3.579.2 .1259 1945 Unknown [id number] 2.16.840.1.823071.3.579.2 .903 1945 Unknown [id number] 2.16.840.1.930967.3.579.2 .727 1945 Unknown [id number] 2.16.840.1.527866.3.579.2 .727 1943 Unknown [id number] 2.16.840.1.958739.3.579.2 .727 1943 Unknown [id number] 2.16.840.1.608076.3.579.2 .727 1943 Unknown [id number] 2.16.840.1.201733.3.579.2 .727 1943 Unknown [id number] 2.16.840.1.748724.3.579.2 .727 1943 Unknown [id number] 2.16.840.1.643502.3.579.2 .727 1943 Unknown [id number] 2.16.840.1.305539.3.579.2 .727 1943 Unknown [id number] 2.16.840.1.403626.3.579.2 .727 1943 Unknown [id number] 2.16.840.1.706494.3.579.2 .72 1945 Unknown [id number] 2.16.840.1.125478.3.579.2 .727 1943 Unknown [id number] 2.16.840.1.915318.3.579.2 .727 1943 Unknown [id number] 2.16.840.1.240293.3.579.2 .72 1945 Unknown [id number] 2.16.840.1.830110.3.579.2 .727 1943 Unknown [id number] 2.16.840.1.895447.3.579.2 .727 1945 Unknown [id number] 2.16.840.1.490214.3.579.2 .727 1945 Unknown [id number] 2.16.840.1.020023.3.579.2 .72 Social History Date Type Detail Facility 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 [facility] Start: 1945 Sex Assigned At Not on file [facility] Start: 10-17-2021 Tobacco smoking status [facility] Never sm oked tobacco [facility] Start: 10-17-2021 Tobacco use and exposure Smokeless t obacco non-user [facility] Start: 10-18-2021 End: 10-26-2023 Alcohol intake Current drinker of alcohol (finding) [facility] Start: 10-17-2021 History SDOH Alcohol Comment occassional [facility] Start: 10-07-2021 End: 10-17-2021 Exposure to SARS-CoV-2 (event) Not sure [facility] Start: 03-06-2022 End: 10-26-2023 History of Social function [facility] Start: 03-06-2022 End: 10-26-2023 Tobacco use panel [facility] Clinical Notes 10-17-2021 to 10-26-2023 Che Bear OT - 10/26/2023 1:15 PM Armen Sparrow DO - 10/11/2023 2:11 PM Johnathan Swenson MD - 10/17/2021 4:42 PM EDTPatient Instructions Note Date & Type Note Facility 10-26-2023 History of Presen t illness Narrative [facility] Occupational Therapy Evaluation Today's Date 10/26/2023 Patient Name: Carlos A Sow Date of : 1945 Case Name: ANNA MARIE BORJAS 2023 Functional Diagnosis: 1. Deficit in activities of daily living (ADL) 2. Benign essential tremor Clinical Information: Subjective Referring Diagnosis: Benign essential tremor [G25.0 (ICD-10-CM)] History of Present Illness Per medical records dated: 10/11/2023 Contemporary Medical History: Carlos A Sow is a 78 y.o., _Right__-handed female, who presents to the neurology clinic regarding essential tremor. She used to follow with Dr. Holm who had prescribed her Topamax 100 mg in 2021 after patient noted she did not tolerate primidone and could not take propanolol because of her asthma. The patient states that shortly after starting Topamax she started to feel very off and confused. She decided to stop taking the medicine for that reason. She states today that she does not remember taking primidone or the side effects from it. She is interested in PT/OT evaluation to help improve her ADLs. I discussed the option of using weight tools/utensils at home and she was very agreeable to this. 1. Benign essential tremor - Recommended weighted tools/utensils - Recommend evaluation for high frequency ultrasound treatment, patient is agreeable - PT/OT referral for evaluation Patient's neurologic examination was nonfocal and nonlateralizing. Patient is to follow up with Dr. Macias and is to contact the office with any questions or concerns in the meantime. My impressions and treatment recommendations were discussed in detail with the patient, who verbalized understanding and had no further questions prior to discharge. Thank you for allowing me to participate in the care of your patient. If you have any questions or concerns please do not hesitate to contact me. I spent >45 minutes with Carlos A Sow, with more than 50% of the time devoted to discussing symptoms, examination findings, education and counseling about treatment approach, diagnostic plan, and prognosis. Subjective History: Does not take medication for tremors -- has BP medication, diabetes, and cholesterol What do you know about HIFU? I have seen it on TV! am awake, the nerve ending in your brain feel it, they will shoot a laser at your skull and hit something in the brain to help the tremor What is your goal for surgery? Get ride of tremor. Be able to write check again If tremors affect both hands, which side would be your priority to improve (right or left)? Right hand (dominant) How do you feel off medications? Does not regularly take Freezing of Gait or start hesitation? No Do you have any problems swallowing? Has acid reflux. Has to think about chewing her food more. Falls? Stumbles? No, but sometimes feels unsteady Vision? Has cataracts, plans to get removed in the future. Wears readers Dizziness? [place]? No Current functional difficulties due to tremors? Handwriting, self-feeding, drinking liquids Level of family support: Lives alone. Son and daughter both live close. Mulit-story home. Has an extra bedroom/bathroom on the first floor Assistive devices at home: Has grab bars, shower chair Pain Scale Pain location: No pain reported (hx of arthritis) Personal Goals: Improve tremor on R side Get back to better handwriting, writing checks Functional Mobility Status Current Mobility Status: Home: no device Community: no device Home medical equipment owned: Yes Adaptive Equipment: grab bars and shower chair Social Support: Patient lives alone. Additional Social Support: son and daughter live clost by Sabianist, social, or cultural considerations to be made aware of before starting treatment: No Home Environment Current Home Environment: Setup: multi-level house First floor: bedroom and full bath Second floor: bedroom and full bath Red Flags: None Comments: Barriers to Care: None Fall risk screening Fallen 2 or more times in the last 12 months: No Sabianist, social, or cultural considerations to be made aware of before starting treatment: No Evaluation Tremor Rating Scale (OFF MEDICATION) Right Left Resting Tremor 2=Tremor that has moderate amplitude, usually present and clearly oscillatory 0= No Visible Tremor Postural Tremor 3=Large amplitude, jerky tremor resulting in spilling and difficulty hitting a target 1= Low amplitude tremor that is barely perceivable or is intermittent Pouring Water 3=Large amplitude, jerky tremor resulting in spilling and difficulty hitting a target 0= No Visible Tremor Drinking Water 3=Large amplitude, jerky tremor resulting in spilling and difficulty hitting a target 0= No Visible Tremor Using a Spoon 3=Large amplitude, jerky tremor resulting in spilling and difficulty hitting a target 0= No Visible Tremor Finger to Nose 2=Tremor that has moderate amplitude, usually present and clearly oscillatory 1= Low amplitude tremor that is barely perceivable or is intermittent Spiral 4=Large amplitude, jerky tremor, inability to handle liquids, reluctant to touch finger to nose, inability to draw spiral 1= Low amplitude tremor that is barely perceivable or is intermittent Right Total Left Total 11/29 Handwriting R: Performed and See media tab for scanned information L: Performed and See media tab for scanned information Treatments: Occupational Therapy Exercise Log - 10/26/23 1416 Therapeutic Exercise (69634) Intervention OT HIFU EVAL OT Treatment Times Total Treatment Time 47 Treatment Plan: No follow up indicated Occupational Therapy Neuro goals: No goals established on 10/26/2023 Patient Education provided: Discussed Plan of care frequency and duration, treatment plan, importance of attendance for recovery, team concept, and diagnosis/pathophysiology/prognosis. Pt is in agreement with plan, and all questions at this time were answered Occupational Profile/Client History Moderate Complexity - Occupational Profile and medical history includes expanded review history of medical and/or therapy records and additional review of physical, cognitive, or psychosocial history. Patient Assessment: Number of performance deficits causing inability to complete activities due to the lack of skills relating to physical, cognitive, or psychosocial skills) Performance deficits include: Balance impairments, Abnormal motor skills, Endurance impairments, Fine motor coordination impairments, and Gross motor coordination impairments 3-5 (Moderate) performance deficits identified which result in limitations and/or participation restriction. Clinical Decision Making: Moderate Complexity - moderate complexity of clinical decision making including occupational profile/data from detailed assessments; consideration of several treatment options; may present with comorbidities that affect occupation performance; minimal or moderate modification of tasks or assistance is required.. Patients comorbidities affecting occupational performance include: No past medical history on file. Carlos A Sow presents to [facility] on 10/26/2023 for an occupational therapy assessment prior to potential DBS surgical intervention with c/o difficulty with coordination, grasp, and motor skills secondary to diagnosis of essential tremor. Upon assessment, the patient demonstrates significant tremor on the right side, as well as difficulty in sustained supine position . 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 See results of assessments below: Tremor Rating Scale (OFF MEDICATION) Right Left Total 11/29 Potential barriers to rehabilitation include chronicity or severity of the current condition. No further OT follow up indicated at this time. Plan of care to be revised as needed based on response to therapeutic intervention. Thank you for allowing me to participate in this patient's care. Please contact me at [phone] with any questions or concerns. This co-signature is to electronically certify that the above named patient, who is under my care, requires skilled therapy services as described in the above treatment plan. I further certify that the services outlined in this plan are skilled and medically necessary. I have reviewed this plan of care for rehabilitation services and recommend that these services continue from 10/26/2023 to 11/26/2023. Che Bear OT State License, [id number] documented in this encounter [facility] 10-11-2023 History of Presen t illness Narrative Name: Carlos A Sow Date of : 1945 Date of Visit: 10/11/23 NEUROLOGY CONSULTATION REASON FOR CONSULTATION: No chief complaint on file. HISTORY OF PRESENT ILLNESS: Carlos A Sow is a 78 y.o., _Right__-handed female, who presents to the neurology clinic regarding essential tremor. She used to follow with Dr. Holm who had prescribed her Topamax 100 mg in 2021 after patient noted she did not tolerate primidone and could not take propanolol because of her asthma. The patient states that shortly after starting Topamax she started to feel very off and confused. She decided to stop taking the medicine for that reason. She states today that she does not remember taking primidone or the side effects from it. She is interested in PT/OT evaluation to help improve her ADLs. I discussed the option of using weight tools/utensils at home and she was very agreeable to this. PHQ9 = 7 scores of 5-9 are classified as mild depression; 10-14 as moderate depression; 15-19 as moderately severe depression; ? 20 as severe depression GAD7 = 1 0-4: minimal anxiety. 5-9: mild anxiety. 10-14: moderate anxiety. 15-21: severe anxiety REVIEW OF SYSTEMS: Pertinent 14-point ROS were discussed and findings are above in the HPI. In addition, patient denies fever, chills, vision changes, dysarthria, dysphagia, hearing changes, tinnitus, weakness, numbness/tingling, dizziness, lightheadedness, gait instability, headache, memory problems, difficulty concentrating, hallucinations, back pain, neck pain, chest pain, shortness of breath, nausea or vomiting. PAST MEDICAL HISTORY: No past medical history on file. PAST SURGICAL HISTORY: No past surgical history on file. FAMILY MEDICAL HISTORY: Family History Problem Relation Age of Onset Cancer Mother Tremor Mother Heart disease Father Cancer Maternal Grandmother Cancer Maternal Grandfather Heart disease Paternal Grandmother Heart disease Paternal Grandfather ALLERGIES: Allergies Allergen Reactions Propranolol Other (See Comments) Reports hallucinations and nightmares (possibly drug side effect and not allergy) SOCIAL HISTORY: Social History Socioeconomic History Marital status: Tobacco Use Smoking status: Never Smokeless tobacco: Never Vaping Use Vaping Use: Never used Substance and Sexual Activity Alcohol use: Yes Comment: occassional Drug use: Never MEDICATIONS: Current Outpatient Medications Medication Sig Dispense Refill atorvastatin (LIPITOR) 80 MG tablet Take 1 (one) tablet (80 mg total) by mouth daily . calcium acetate,phosphat bind, (PHOSLO) 667 mg capsule Take 2 (two) capsules (1,334 mg total) by mouth 3 (three) times a day with meals . calcium carbonate-vitamin D3 600 mg-10 mcg (400 unit) per tablet Take by mouth . lisinopriL-hydrochlorothiazide (PRINZIDE,ZESTORETIC) 20-25 mg per tablet Take 1 (one) tablet by mouth daily . metFORMIN (GLUCOPHAGE) 500 MG tablet Take 1 (one) tablet (500 mg total) by mouth 2 (two) times a day . zkaqglm-tnuz-mgkfu-oreg-capryl 100 mg-150 mg- 50 mg-150 mg cap Take by mouth . zinc gluconate 50 mg tablet Take 1 (one) tablet (50 mg total) by mouth daily . aspirin 81 MG EC tablet Take 1 (one) tablet (81 mg total) by mouth daily . famotidine (PEPCID) 40 MG tablet Take 1 (one) tablet (40 mg total) by mouth at bedtime . topiramate (Topamax) 100 MG tablet Take 0.5 (one-half) tablet (50 mg total) by mouth daily for 7 days, THEN 0.5 (one-half) tablet (50 mg total) 2 (two) times a day for 7 days, THEN 1 (one) tablet (100 mg total) 2 (two) times a day. (Patient not taking: Reported on 03/06/2022) 71 tablet 2 No current facility-administered medications for this visit. PHYSICAL EXAMINATION: Vital Signs: BP (!) 152/83 (BP Location: Right arm, Patient Position: Sitting, BP Cuff Size: Adult) Pulse 92 Ht 5' 1 Wt 84.4 kg (186 lb 1.6 oz) BMI 35.16 kg/m General: Alert and oriented x 4, no apparent distress, normal body habitus. Head/Neck: Normocephalic/atraumatic, mucous membranes moist, no carotid bruits, neck supple. Eyes: Extraocular muscles intact, pupils equal round and reactive to light, visual paz full, conjunctiva/sclera clear bilaterally. Cardiovascular: Regular rate and rhythm. Respiratory: Clear to auscultation bilaterally. Gastrointestinal: Nondistended. Musculoskeletal: No edema, no calf tenderness bilaterally. Extremities: Peripheral pulses present, no clubbing or cyanosis. Integumentary: No rashes on exposed skin. Psychiatric: Normal mood, affect appropriate. Neurological Exam: Mental Status: Alert and oriented x [address], [address], month, and president. Normal speech without aphasia or dysarthria, normal attention and concentration. Grossly normal recent and remote memory. Fund of knowledge consistent with education. Repetition and naming intact. Cranial Nerves: II, III, IV, : Extraocular muscles intact, pupils equal round and reactive to light, visual paz full, no nystagmus. Fundoscopy reveals no papilledema. V: Sensation intact bilaterally in V1, V2, V3 distributions. VII: No facial asymmetry. VIII: Hearing intact bilaterally. IX, X: Palate movement full and symmetric. XI: Shoulder shrug normal bilaterally. XII: Tongue protrusion symmetric with movement side to side. No tongue fasciculations. Sensation: Intact to light touch, temperature, pinprick, and vibration in the upper and lower extremities bilaterally. Motor: Strength is 5/5 in the upper and lower extremities bilaterally; tone and bulk are normal, no pronator drift. Reflexes: 2+ in the biceps, triceps, brachioradialis, patellar, and achilles bilaterally; flexor plantar responses bilaterally, Kumar's sign absent bilaterally. Coordination: No dysmetria on rfauhb-qy-zenl or zjzi-vx-kerr; Significant action tremor noted of her right upper extremity Gait: Normal station. Casual gait normal without the use of assistive devices. Heel, toe, and tandem gaits within normal limits. Romberg negative. REVIEW OF RECORDS: I have directly reviewed available neuroradiological images, reports, and office notes, which are as summarized in the HPI. ASSESSMENT/PLAN: 1. Benign essential tremor - Recommended weighted tools/utensils - Recommend evaluation for high frequency ultrasound treatment, patient is agreeable - PT/OT referral for evaluation Patient's neurologic examination was nonfocal and nonlateralizing. Patient is to follow up with Dr. Macias and is to contact the office with any questions or concerns in the meantime. My impressions and treatment recommendations were discussed in detail with the patient, who verbalized understanding and had no further questions prior to discharge. Thank you for allowing me to participate in the care of your patient. If you have any questions or concerns please do not hesitate to contact me. I spent >45 minutes with Carlos A Sow, with more than 50% of the time devoted to discussing symptoms, examination findings, education and counseling about treatment approach, diagnostic plan, and prognosis. Raven Macias MD [facility] [address] [place] [address] [phone] Associated attestation - Raven Macias MD - 10/11/2023 2:59 PM EST Patient seen and examined with resident. Agree with below. Patient with long hx of ET and having cont difficulty with utensils. She was supposed to be evaluated for HIFU in the past but didn't do it and is ready to be evaluated now. Will place orders for eval and fu after eval documented in this encounter [facility] 10-17-2021 History of Presen t illness Narrative NEUROLOGY NOTE [facility], [place] [address] [address], [facility] second floor [facility] [address] Fax: [phone] Service date: 10/17/2021 Admit date: (Not on file) This note was created in part using a speech-recognition software. Carlos A Sow is a 76 y.o. female presenting for evaluation of tremors. She reports that she has noticed upper extremity predominant tremors for the last 2 to 3 years. For the last 1 year she has also noticed voice tremors. She also reports that tremors have been affecting her lower extremities in the last 12 to 18 months as well. Initially the tremors were noticed in the setting of being treated with albuterol for her asthma. As tremor gradually worsened, it has involved her ability to hold a cup without spilling it, using a spoon and fork, pen etc. Handwriting has become scratchy and small, and she struggles with fine motor tasks in general. While she reports that she may be a little slower with bathing, showering, cleaning herself, or fixing her meals, she is not particularly bradykinetic when reviewed in detail. She may tend to veer backwards, or reach out for furniture to hold onto but she does not frequently fall. No motor freezing episodes are reported. Among the nonmotor features she reports dribbling, urinary accidents and needing to wear pads mostly because she has had pelvic floor incompetence, and has had tightening surgeries in the past. Sense of smell has not been affected, no dysautonomic features reported, speech and swallowing is normal. Memory and thinking are normal, she is independent for ADLs and IADLs. Sense of direction while driving is within normal limits. As for her sleep she may have significant insomnia tossing and turning and stays awake for a long time. Does not report any REM behavior disorder features such as flailing of limbs, talking in sleep, waking up confused or having active/vivid dreams. No hallucinations, or mood disorders are reported. She does not report any exposure to antipsychotic or dopamine blocking agents in the past. Medication trials in the past: As for her medications in the past, she has tried propranolol at 80 mg, and subsequently at 60 mg based on her previous neurology notes from [facility]. Propranolol possibly made her asthma worse, gave her some nightmares and hallucinations? She may have tried primidone briefly at a dose of 50 mg twice a day (100 mg/day) which she says made her really dizzy and like a drunk , slurring her words and feeling very tired. She has never tried a once a day dose in the past. Topiramate: Not tried Gabapentin:? Possibly tried in the past but unsure of the response and potential side effects she may have experienced. Social: Right-handed, lives by herself. Retired. Does not use any assistive devices. Exercise includes housework. Driving: She can drive herself. 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 Family history: No history of PD, dementia in the family. with PD in 2019. Neurological examination: Vitals: 10/17/21 1252 10/17/21 1256 BP: (!) 149/93 (!) 148/120 BP Location: Right arm Right arm Patient Position: Lying Standing BP Cuff Size: Adult Adult Pulse: 81 88 Resp: 18 18 SpO2: 95% 96% Pleasant 76 y.o. female appropriately dressed and groomed Higher mental functions: Good fund of knowledge. Appropriate mood. History and timeline of the history are internally consistent and well-organized. Speech is without any discernible dysarthria. Normal language function. No apraxia, agnosia, sensory extinction or spatial neglect. She has a resting no-no head and neck tremor that is rather jerky and intermittent. Both upper extremities show a high-frequency small amplitude predominantly postural and action tremors in extension. Right upper extremity seems to be affected more than the left. The pattern of the tremor is mostly flexion extension in extended posture of the hands, but there is a significant pronation supination component that comes out when she pours water [id number]-uqgnz between 2 cups. With the arm stretched out the right upper extremity shows a flexion extension component of the elbow as well. Left upper extremity is not as effective as the right. A voice tremor is also noticed but not appreciated much by the patient herself. Finger taps, hand sourcing coordinator, handgrips, foot taps and foot stomping worse no decrementing bradykinesia although some uniform slowness possibly caused by her upper limb arthritis is noticeable. No hypomimia, paucity of gestures, hypophonia, body bradykinesia is noticed. Cerebellar maneuvers show intention tremor which seems to be an overflow of her action tremor outlined above. There is no hypometria or hypometria or clear limb ataxia otherwise. She was able to stand up without pushing herself off with her hands. Casual gait in the hallway shows no shuffling, or foot drag. No motor hesitation, motor freezing at any point. Turns are executed gracefully. She can perform Romberg without difficulty. Tandem stance is difficult for her mostly due to her body habitus. Cranial nerves: Oculomotor: Pupils are equal and reactive to light, EOM: Full range of movements, gaze is conjugate, convergence is normal saccades pursuits and VOR are normal. No nystagmus noted no ocular flutter noted. Facial motor: Normal. Facial sensations normal. Hearing: Normal to room conversation. Palatal excursions are normal. Tongue movements are normal. Anterior and lateral flexion and extension of neck muscles are normal as well. Motor exam/ Neuromuscular: Strength of the large and small muscle groups of the limbs and the trunk is normal. Muscle stretch reflexes (deep tendon reflexes): 2+ in upper and lower extremities. Assessment and plan: 76-year-old woman with bilateral upper extremity predominant tremors, additional voice tremors and lower extremity tremors which gradually appeared over the last 3 to 4 years. It is possible that patient may have had tremors even before this but she is more aware of it now. Examination does not show any clear evidence of parkinsonism. Based on these features and lack of nonmotor features of synucleinopathy and other neurodegenerative symptomology/phenomenology, it is reasonable to consider this essential tremors and treated as it is. In the future if she develops parkinsonian features the diagnosis can be revised. Medications tried include primidone, propranolol, and gabapentin. Twice a day primidone had made her drunk . Given her asthma propranolol for her. It also caused possible hallucinations in the past. Recommend trying primidone at bedtime at a dose of 50 mg. If after 3 weeks at this dose she still feels drunk and drowsy, we can consider Botox injections for the forearm muscles. Based on her flexion-extension and pronation supination vectors of the tremor she will need injections to the FCU, FCR and pronator teres. An additional component of flexion and extension of the elbow was also noticed when I made her perform several tremor-provoking maneuvers today. This means she may need injections to the brachioradialis as well. We discussed the complexity of her care at length. Given the lack of good response to medications generally with essential tremors, she will probably be best served by DBS or HIFU. We discussed briefly about the surgeries as well. I would highly recommend that she follow-up with a movement disorder specialist in [place] or [place] due to these factors. I have informed her of my impending departure from [facility]. My office will make the best efforts to transfer her care to a Movement Disorder Specialist within the [facility] system in person or via video visits.. Encounter diagnoses: 1. Essential tremor 2. Tremor Patient Instructions 1. Essential tremor: Based on your clinical examination I have determined that you have essential tremors. You do not have Parkinson disease features. Your overall examination is largely within normal limits for your age. 2. Treatment for essential tremors: Ideally this is treated with a combination of medication such as propranolol, primidone, topiramate and gabapentin. Among these, propranolol has been tried before at 80 mg, and 60 mg based on your previous neurology notes. However propranolol might make your asthma worse, and drop your blood pressures. Primidone has been tried at a larger dose before, I would like to try this at a smaller dose to see if that can help you to some extent even though the side effects of drowsiness and drunken feeling might still be there. Gabapentin has been tried based on your previous notes. I am not sure what the response was. Topiramate can also be tried as an add-on therapy. Please see the instructions below to start trying a smaller dose of primidone. 3. Primidone: 50 mg at bedtime for 3 weeks. Call my office and let us know if this is making you feel drunken, or drowsy. If this helps you with tremors to some extent, I would recommend continuing it. 4. Topiramate can be considered as a add-on therapy to primidone to help primidone exert its better effect. 5. Based on your examination your head and neck tremors, and your arm tremors cannot be completely controlled with medications. 6. Botox can be used as an advanced therapy option for tremors. Injecting Botox into the muscles of the forearm and elbow can be helpful in controlling tremors to an extent. These should be injected by a trained Dr. So your movement disorder specialist may have to decide on what the dose would be. 7. At this point the best treatment for you would be to consider deep brain stimulation surgery (DBS) or high intensity focused ultrasound treatment (HIFU). These are options available at [facility] movement disorder [facility]. If you are interested in any of these, please let me know so I can put referrals to get you to see Dr. Loraine Holm and the neurosurgeons at [place]. 8. Follow-up with movement disorder specialist in [place] in March. Assessment & plan notes cannot be loaded without a specified hospital service. COLT SWENSON MSc, MD. Staff Neurologist & Movement Disorder Specialist [facility] (Adj Asst: Professor, [employer] Dept of Neurology) CHRISTIANO Bauer [id number], [facility] [address] [facility] Fax: [phone] Attestation: Time Statement (OP Visits): A total of 60 minutes were spent at this encounter, and this includes the time for preparing for the visit, review notes, obtaining history, performing exam, review of previous tests and results, independently interpreting results of tests, ordering medications/tests/procedures, counseling the patient and/family on plan of care, as well as documenting the clinical information in the EHR (which includes this note) documented in this encounter [facility] 10-17-2021 Instructions Colt Swenson MD - 10/17/2021 2:07 PM EDT Essential tremor: Based on your clinical examination I have determined that you have essential tremors. You do not have Parkinson disease features. Your overall examination is largely within normal limits for your age. Treatment for essential tremors: Ideally this is treated with a combination of medication such as propranolol, primidone, topiramate and gabapentin. Among these, propranolol has been tried before at 80 mg, and 60 mg based on your previous neurology notes. However propranolol might make your asthma worse, and drop your blood pressures. Primidone has been tried at a larger dose before, I would like to try this at a smaller dose to see if that can help you to some extent even though the side effects of drowsiness and drunken feeling might still be there. Gabapentin has been tried based on your previous notes. I am not sure what the response was. Topiramate can also be tried as an add-on therapy. Please see the instructions below to start trying a smaller dose of primidone. Primidone: 50 mg at bedtime for 3 weeks. Call my office and let us know if this is making you feel drunken, or drowsy. If this helps you with tremors to some extent, I would recommend continuing it. Topiramate can be considered as a add-on therapy to primidone to help primidone exert its better effect. Based on your examination your head and neck tremors, and your arm tremors cannot be completely controlled with medications. Botox can be used as an advanced therapy option for tremors. Injecting Botox into the muscles of the forearm and elbow can be helpful in controlling tremors to an extent. These should be injected by a trained Dr. So your movement disorder specialist may have to decide on what the dose would be. At this point the best treatment for you would be to consider deep brain stimulation surgery (DBS) or high intensity focused ultrasound treatment (HIFU). These are options available at [facility] movement disorder center. If you are interested in any of these, please let me know so I can put referrals to get you to see Dr. Loraine Holm and the neurosurgeons at [place]. Follow-up with movement disorder specialist in [place] in March. documented in this encounter [facility] Evaluation note Diagnosis Tremor- Primary Abnormal involuntary movements [facility] Essential tremor- Primary Tremor Abnormal involuntary movements documented in this encounter [facility] Essential tremor- Primary [facility] Diagnosis Action tremor- Primary Essential and other specified forms of tremor [facility] Diagnosis Benign essential tremor- Primary Essential and other specified forms of tremor [facility] Diagnosis Deficit in activities of daily living (ADL)- Primary Benign essential tremor Essential and other specified forms of tremor [facility] Diagnosis Impaired functional mobility, balance, gait, and endurance- Primary [facility] Diagnosis Essential tremor- Primary documented in this encounter [facility] Summary Purpose Family History No Family History Records FoundNo Family History Records FoundNo Family History Records FoundNo Family History Records FoundNo Family History Records FoundNo Family History Records Found Advance Directives No Advanced Directives Records FoundDocuments on File Type Date Recorded Patient Visual Aid Expert Expl anation Advance Directives and Living Will Reason for Referral Specialty Diagnoses / Procedures Referred By Tiana sims Referred To Contact Neurology Diagnoses Tremor Octavio Winters MD [address] [place] [phone] Colt Swenson MD [address] [place] [id number] Referral ID Status Reason Start Date Expiration Date V isits Requested Visits Authorized [id number] Pending Review 08/17/2021 08/17/2022 1 1 Specialty Diagnoses / Procedures Referred By Contac t Referred To Contact Neurology Diagnoses Essential tremor Colt Swenson MD [address] [address] [facility] [address] Medical Office Building, [address] [place] [address] Referral ID Status Reason Start Date Expiration Date V isits Requested Visits Authorized [id number] Authorized 03/06/2022 03/06/2023 1 1 Specialty Diagnoses / Procedures Referred By Contac t Referred To Contact Neurology Diagnoses Essential tremor Joie Tomas, KAILEE [address] [address] Loraine Holm MD [address] [facility] [address] [place] [address] Referral ID Status Reason Start Date Expiration Date Visits Requested Visits Authorized [id number] Authorized Specialty Services Required/Pat ient's Best Interest 11/11/2021 11/11/2022 1 1 Specialty Diagnoses / Procedures Referred By Contac t Referred To Contact Neurology Diagnoses Action tremor Octavio Winters MD [address] [place] [address] [facility] Referral ID Status Reason Start Date Expiration Date V isits Requested Visits Authorized [id number] Authorized 04/10/2023 04/09/2024 1 1 Specialty Diagnoses / Procedures Referred By Contac t Referred To Contact Rehabilitation Diagnoses Benign essential tremor Raven Macias MD [address] [facility] [address] [place] [address] Referral ID Status Reason Start Date Expiration Date V isits Requested Visits Authorized [id number] Authorized 10/11/2023 10/10/2024 1 1 Specialty Diagnoses / Procedures Referred By Contac t Referred To Contact Radiology Diagnoses Benign essential tremor Procedures CT Head Or Brain Without Contrast Raven Macias MD [address] [place] [address] [facility] [address] [place] [address] Referral ID Status Reason Start Date Expiration Date Visits Re quested Visits Authorized [id number] Closed 10/11/2023 10/10/2024 1 1 Specialty Diagnoses / Procedures Referred By Tiana sims Referred To Contact Physical Therapy Diagnoses Essential tremor Raven Macias MD [address] [place] [address] OF SERVICE NOT IN SYSTEM Referral ID Status Reason Start Date Expiration Date V isits Requested Visits Authorized [id number] Closed Specialty Services Required/Makenna ent's Best Interest 10/29/2023 10/28/2024 1 1 Additional Source Comments INFORMATION SOURCE (unrecogn ized section and content) DATE CREATED AUTHOR 01/23/2018 [facility] DATE CREATED AUTHOR AUTHOR'S ORGANIZ ATION 08/27/2021 [facility] DATE CREATED AUTHOR AUTHOR'S ORGANIZ ATION 03/08/2022 [facility] DATE CREATED AUTHOR AUTHOR'S ORGANIZ ATION 07/02/2023 [facility] DATE CREATED AUTHOR AUTHOR'S ORGANIZ ATION 10/12/2023 [facility] DATE CREATED AUTHOR AUTHOR'S ORGANIZ ATION 10/31/2023 [facility] Reason for Visit (unrecogniz ed section and content) Reason Comments Physical Therapy Neuro Specialty Diagnoses / Procedures Referred By Tiana sims Referred To Contact Rehabilitation Diagnoses Benign essential tremor Raven Macias MD [address] [place] [address] Referral ID Status Reason Start Date Expiration Date V isits Requested Visits Authorized [id number] Authorized 10/11/2023 10/10/2024 1 199 Reason Comments Tremors She states tremors i n her right hand. She states she noticed it after taking albuterol for a breathing treatment. She states writing is bad. She states her head bobs while driving. She states she chews more do to a fear of choking. Specialty Diagnoses / Procedures Referred By Tiana sims Referred To Contact Neurology Diagnoses Tremor Octavio Winters MD [address] [place] [address] Colt Swenson MD [address] [place], [place] [address] [place] [id number] Referral ID Status Reason Start Date Expiration Date Visits Re quested Visits Authorized [id number] Closed 08/17/2021 08/17/2022 1 1 Specialty Diagnoses / Procedures Referred By Tiana sims Referred To Contact Neurology Diagnoses Action tremor Octavio Winters MD [address] [place] [address] [facility] Referral ID Status Reason Start Date Expiration Date Visits Re quested Visits Authorized [id number] Closed 04/10/2023 04/09/2024 1 1 Reason Comments Occupational Therapy Referral ID Status Reason Start Date Expiration Date V isits Requested Visits Authorized [id number] Authorized 10/11/2023 10/10/2024 1 199 Care Teams (unrecognized sec tion and content) Public Speaking Coach Relationship Specialty Start Date End Date Octavio Winters MD [address] [place] [address] PCP - General Family Medicine 08/23/21 Public Speaking Coach Relationship Specialty Start Date End Date Octavio Winters MD [address] [place] [address] PCP - General Family Medicine 08/23/21 Public Speaking Coach Relationship Specialty Start Date End Date Octavio Winters MD [address] [place] [address] PCP - General Family Medicine 08/23/21 Public Speaking Coach Relationship Specialty Start Date End Date Octavio Winters MD [address] [place] [address] PCP - General Family Medicine 08/23/21 Public Speaking Coach Relationship Specialty Start Date End Date Octavio Winters MD [address] [place] [address] PCP - General Family Medicine 08/23/21 Public Speaking Coach Relationship Specialty Start Date End Date Octavio Winters MD [address] [place] [address] PCP - General Family Medicine 08/23/21 Public Speaking Coach Relationship Specialty Start Date End Date Octavio Winters MD [address] [place] [address] PCP - General Family Medicine 08/23/21 FOR RECORDS PERTAINING TO PATIENTS WHO ARE OR HAVE BEEN ENROLLED IN A CHEMICAL DEPENDENCY/SUBSTANCEABUSE PROGRAM, SOME INFORMATION MAY BE OMITTED. This clinical summary was aggregated from multiple sources. Caution should be exercised in using it in the provision of clinical care. This summary normalizes information from multiple sources, and as a consequence, information in this document may materially change the coding, format and clinical context of patient data. In addition, data may be omitted in some cases. CLINICAL DECISIONS SHOULD BE BASED ON THE PRIMARY CLINICAL RECORDS. [facility]. provides no warranty or guarantee of the accuracy or completeness of information in this document.
== END 2023-11-02 12:36 | disposition home or self-care (01) ==
LOC: LAB 12:35
PROVIDERS: PCP Family Medicine; Visit Provider Radiology Diagnostic Radiology
DX: R22.41 Localized swelling, mass and lump, right lower limb (principal); Z96.651 Presence of right artificial knee joint
CPT/HCPCS: 36415; 73702; 82565; Q9967

== ENCOUNTER 2023-11-16 12:12 | Outpatient (OUT) | payer MEDICARE, SELFPAY ==
--- NOTE | 2023-11-16 12:17 | VEIN_ITS ---
[address] [address] Patient Name: CARLOS A BAKER MRN: [id number] date: 1945 Sex: F Assigned Patient Location: Current Patient Location: Accession/Order Number: [id number] Exam Date: 11/16/2023 12:22 Report Date: 11/16/2023 15:32 At the request of: CINDA JOHNSON Procedure: VC Endovenous Ablation 1VeinRT EXAMINATION: VC Endovenous Ablation 1VeinRT COMPARISON: INDICATIONS: Pain due to varicose veins of bilateral legs I83.813 OPERATIVE REPORT: Diagnosis: Superficial venous reflux, incompetent right anterior accessory saphenous vein Procedure: Endovenous laser ablation of the right anterior accessory saphenous vein Procedure: The patient was positioned supine on the table and the leg was prepped and draped to allow for visualization during venous access. A sterile cover was draped over a 16 mhz ultrasound probe. Venous mapping was performed prior to the procedure noting location and size of vessel(s). Right anterior accessory saphenous vein: The diameter of the vein was up to 9.9 mm's Using a 30 gauge needle the entry site was anesthetized with 2 cc of 1% buffered lidocaine. Access was gained percutaneously, with a 21-gauge needle, into the anterior accessory saphenous vein under ultrasound guidance. The needle was advanced into the desired position and the pre-measured 400-micron fiber was then inserted into the needle and locked in place. The position of the fiber was imaged with ultrasound guidance. The fiber tip was visualized to be within the vein. An anesthetic solution of sterile saline and 1% buffered lidocaine was delivered along the course of the vein under ultrasound guidance. A final positioning check of the laser fiber tip was performed. The laser was activated by means of a foot-pedal and the fiber and needle were withdrawn together in accordance to the desired joules per treatment area/spot weld. 4 areas/spot welds were performed, and the total number of joules delivered was 172. The total time of energy delivery was 29 seconds. A duplex ultrasound revealed compressibility and flow of the deep system immediately after the procedure. Hemostasis of the access site was achieved and dressed. A 20-30 mm compression stocking over coban was placed on the treated leg. Post-Op instructions were given, and a follow-up appointment was made. Right great saphenous vein proximal segment: The diameter of the vein was 6.6 mm. Using a 30 gauge needle the entry site was anesthetized with 2 cc of 1% buffered lidocaine. Access was gained percutaneously, with a 21-gauge needle, into the proximal great saphenous vein under ultrasound guidance. The needle was advanced into the desired position and the pre-measured 400-micron fiber was then inserted into the needle and locked in place. The position of the fiber was imaged with ultrasound guidance. The fiber tip was visualized to be within the vessel. An anesthetic solution of sterile saline mixed with 1% buffered lidocaine was delivered along the course of the vein under ultrasound guidance using a syringe. A final positioning check of the laser fiber tip was performed. The laser was activated by means of a foot-pedal and the fiber and needle were withdrawn together in accordance to the desired joules per treatment area/spot weld. 2 areas/spot welds were performed, and the total number of joules delivered was 77. The total time of energy delivery was 10 seconds. A duplex ultrasound revealed compressibility and flow of the deep system immediately after the procedure. Hemostasis of the access site was achieved and dressed. A 20-30 mm compression stocking over coban was placed on the treated leg. Post-Op instructions were given, and a follow-up appointment was made. CONCLUSION: 1. Technically successful endovenous laser ablation of focal areas within the markedly tortuous right anterior accessory saphenous vein and within the persistently patent short segment of the right great saphenous vein. Electronically authenticated by: APOLLO THOMPSON Date: 11/16/2023 15:32
--- OUTSIDE RECORDS SUMMARY | 2023-11-16 12:26 | XMS_ITS | CCD ---
Author Organization [facility] Care Team Providers Care Academic Interventionist Name Role Phone MIKY GLEZ Unavailable Unavailable [...] source) naproxen; Translations: [NAPROXEN] [facility] (9 sources) Propranolol; Translations: [PROPRANOLOL] Drug Allergy 2 Other (See Comments) [facility] Work Phone: (1 source) Cisapride; Translations: [Propulsid] Drug Allergy [facility] Repository (1 source) Clarithromycin; Translations: [Biaxin] Drug Allergy [facility] Repository (1 source) Naproxen; Translations: [Naprosyn] Drug Allergy [facility] Repository (1 source) oxaprozin; Translations: [Daypro] Drug Allergy [facility] Repository Medications Current Medications Medication [...] a day. 71 tablet 2 03/06/2022 Active papecsm-mhdg-gngqe-oreg- capryl 100 mg-150 mg- 50 mg-150 mg cap (7 sources) vfzpsuj-etxt-sgo v h-iimt-tektnc 100 mg-150 mg- 50 mg-150 mg cap [...] Consent for Treatmenton 10-05 Consent for Treatment [id number]#[id number] F [facility] Screenson 10-15-2023 Screens [id number]#1.00TIF F [facility] Ambulatory Visit Summaryon 0 10-12-2023 Ambulatory Visit [...] AM EDT With: Octavio WINTERS MD Where: [facility] Medicine [place] Normal [address] [place] [address]- \.br\ You Need to Complete the Following\.br\ MA Mamm Screen w/CAD if perf and 3D Stuart, 10/30/23, Routine, Order for Future Visit, Transport Mode: Ambulatory, Reason: Screening, Reason: Z12.31, No, No, No, Screening mammogram for breast cancer, pp_set_radiology_s ubspecialty, Required & Missing, [facility]\.br\ Medications\.br\ What How Much When Instructions\.br\ Unchanged [...] asthma with acute exacerbation\.br\ Left lumbar radiculopathy\.br\ shelter current use of oral hypoglycemic drug\.br\ Meniere [...] your local emergency services (911 in the [facility] Ambulatory Visit Summary CARLOS A SOW [...] intl units) famotidine (famotidine 40 mg Tab) hydrochlorothiazide-kt nopril (hydrochlorothiazide-lis inopril 25 mg-20 mg Tab) [...] AM EDT With: Octavio WINTERS MD Where: [facility] [address] [place] [address]- \.br\ You Need to Schedule the Following Appointments\.br\ Follow Up with Octavio WINTERS MD, [facility] When: Only if needed\.br\ Where:\.br\ \.br\ You Need to Complete the Following\.br\ MA Mamm Screen w/CAD if perf and 3D Stuart, 10/30/23, Routine, Order for Future Visit, Transport Mode: Ambulatory, Reason: Screening, Reason: Z12.31, No, No, No, Screening mammogram for breast cancer, pp_set_radiology_s ubspecialty, Required & Missing, [facility]\.br\ Medications\.br\ What How Much When Instructions\.br\ Unchanged [...] asthma with acute exacerbation\.br\ Left lumbar radiculopathy\.br\ terminal carman current use of oral hypoglycemic drug\.br\ Meniere [...] include:\.br\ ? \.br\ Wheezing.\.br\ ? \.br\ [facility] Ambulatory Visit Summary CARLOS A SOW Omar [...] AM EDT With: Octavio WINTERS MD Where: [facility] Family Medicine [place] Normal [facility] Family Medicine Office/Clini c Noteon [...] of clutter to prevent tripping and/or falling. [place] Advance Directives reviewed. Documents in chart. Patient [...] PCP visit. Labs to be [facility] with [facility]. No concerns with bowel/ bladder. Colonoscopy last [...] factors associated (more content not included)... Normal [facility] Comment on above: Result Comment: Electronically Signed By : Octavio WINTERS MD\.br\Date and Time Signed: 10/12/23 17:16 EST\.br\Electronically Co-Signed By: Viola Guerra\.br\Date and Time Co-Signed: 10/12/23 16:03 [facility] Medicine Office/Clinic Note Chief Complaint pt [...] birthday. Next week she is going to [place] to her neurologist to proceed if well [...] Oropharynx is pink and moist with fair [place] dentition with repairs. Neck is thick but [...] with voice recognition artificial intelligence software, specifically [employer], [employer] and or [employer]). Substitutions may have occurred due to the [...] asthma with acute exacerbation Left lumbar radiculopathy shelter current use of oral hypoglycemic drug Meniere disease Mild persistent asthma Mixed hyperlipidemia Mixed stress and urge urinary incontinence Morbid obesity On statin therapy Right cervical radiculopathy Type 2 diabetes m (more content not included)... Normal [facility] Comment on above: Result Comment: Electronically Signed [...] how to adjust your dosage. ? Take taot-eps-uwzwigs and prescription medicines only as told by [...] physical activity. (more content not included)... Normal [facility] Patient Educationon 10-11-19 Patient Education [...] (shortness of breath). ? 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 ? Chest tightness. ? Tiredness (fatigue) [...] Follow these instructions at home: ? Take tyeq-kky-ycrmmej and prescription medicines only as told by [...] ? You (more content not included)... Normal [facility] Family Medicine Office/Clini c Noteon [...] a COVID-19 test when she was in [place], which was negative. She took Mucinex and Flonase when she was in [place]. When she got home, it got worse [...] She uses a neti pot. She uses VicPitadela warm steam vaporizer. She was told that [...] a local injection with Dr. Grant from [place]. Review of Systems PHQ Score Initial Depression [...] artery disease) (I25.10: Atherosclerotic heart disease of [place] coronary artery without angina pectoris) hctz/lisinopril continue aspirin 4. Diabetic polyneuropathy associated with type 2 diabetes mellitus (E11.42: Type 2 diabetes mellitus with diabetic polyneuropathy) diet foot checks, glucophage 500mg bid every 6 months hbaic 5. Ectatic aorta (I77.819: Aortic ectasia, unspecified site) unchanged 6. HTN - Hypertension (I10: Essential (primary) hypertension) see med lsit 7. On statin therapy (Z79.899: Other meterman (current) drug therapy) atorvastatin 80mg daily low [...] to acid (more content not included)... Normal [facility] Comment on above: Result Comment: [...] Follow these instructions at home: ? Take qosq-gdr-tndevzs and prescription medicines only as told by [...] and water are not available, use hand chief enterprise architect. ? Avoid contact with people who have [...] is easier to cough up. ? Take fbkg-wwb-hgalzny and prescription medici (more content not included)... Normal [facility] [place] 09-26-2023 Consent [id number]#1.00TI FF Normal [facility] Ambulatory Visit Summaryon 0 09-25-2023 [...] Appointments Sunday 11:00 AM EST With: Where: [facility] Family Medicine [place] Normal [address] [place] [address]- \.br\ You Need to Schedule the Following Appointments\.br\ Follow Up with JOSHUA LUCAS, OSCAR Mc When: \.br\ Where:\.br\ [address] [facility]\.br\ [place] [address]-\.br\ \.br\ Medications\.br\ What How Much When Instructions\.br\ [...] asthma with acute exacerbation\.br\ Left lumbar radiculopathy\.br\ shelter current use of oral hypoglycemic drug\.br\ Meniere [...] numbers. This can be done either in [place] (U.S.) or metric measurements. Note that charts and online BMI calculators are available to help you find your BMI quickly and easily without having to do these calculations yourself.\.br\ To calculate your BMI in [place] (U.S.) measurements:\.br\ \.br\ 1. \.br\ Measure your [...] = 25.8. This is your BMI.\ [facility] Family Medicine Office/Clini c Noteon 09-25-2023 Family Medicine Office/Clinic Note Chief Complaint Current pt cough, congestion, wheezing, HPI Staff 78 yo female here today with wheezing and cough Pt saw PCP-prednisone- Sunday last dose, inhaler, cefdinir Symptoms began 2/ Complains of cough, sinus congestion, wheezing, Pt went to [place] -tested for COVID- negative Pt has been taking mucinex, flonase History of Present Illness I have reviewed and verified the staff HPI to be accurate for this encounter. Portions of this record have been created with voice recognition software. Occasional wrong-word or ?euwzp-n-xpxx? substitutions may have occurred due to the [...] on 13 September, when she was in [place]. States one of her cousins she was [...] Patient states she is also been using ldcg-sjj-myjgczv Mucinex and Flonase for symptoms. Patient states [...] follow-up wit (more content not included)... Normal [facility] Comment on above: Result Comment: [...] numbers. This can be done either in [place] (U.S.) or metric measurements. Note that charts and online BMI calculators are available to help you find your BMI quickly and easily without having to do these calculations yourself. To calculate your BMI in [place] (U.S.) measurements: 1. Measure your weight in [...] for Disease Control and Prevention: www.cdc.gov ? [place] Heart Association: www.heart.org ? National Heart, Lung, and Blood Casa: www.nhlbi.nih.gov Summary ? Body mass index (BMI) is a number that is calculated from a person's weight and height. ? BMI may help estimate how much of a person's weight is composed of fat. BMI can help identify those who may be at higher risk for certain medical problems. ? BMI can be measured using [place] measurements or metric measurements. ? BMI charts are used to identify whether you are underweight, normal weight, overweight, or obese. This information is not intended to replace advice given to you by your health care provider. Make sure you discuss any questions you have with your health care provider. Document Revised: 04/14/2020 Document Reviewed: 02/20/2020 [employer] Patient Education ? 2022 [employer] Nutrition BMI for Adults What is [...] may be (more content not included)... Normal [facility] XR Chest 2 Viewson XR [...] mGy = . DAP = . Normal [facility] Ambulatory Visit Summaryon 0 09-20-2023 [...] Appointments Sunday 11:00 AM EST With: Where: [facility] Family Medicine [address] [address]- \.br\ Medications\.br\ What How Much When Instructions\.br\ New albuterol (Albuterol (Eqv-Proventil HFA) 90 mcg/ inh inhalation aerosol) 2 Puffs Inhalation Every 6 hours Pickup at [facility]\.br\ New cefdinir (cefdinir 300 mg Cap) 1 Capsules By Mouth Every 12 hours Duration: 10 Days Pickup at [facility]\.br\ New predniSONE (predniSONE 20 mg Tab) 2 Tablets By Mouth Every day Duration: 5 Days Pickup at [facility] 1985\.br\ Unchanged ascorbic acid (Vitamin C) See [...] \.br\ Pharmacy Information\.br\ [facility] 1986: [address] [place], [place] [phone]\.br\ Allergies\.br\ Biaxin (Nausea, vomiting and diarrhea)\.br\ Daypro [...] asthma with acute exacerbation\.br\ Left lumbar radiculopathy\.br\ shelter current use of oral hypoglycemic drug\.br\ Meniere [...] check the oxygen level in your blood [facility] Family Medicine Office/Clini c Noteon 09-20-2023 Family Medicine Office/Clinic Note Chief Complaint pt presents today c/o prod cough of thick white phlegm x 1wk, sinus congestion/drainage, SOB, acid reflux. denies fevers. neg home covid test 09/13/23 History of Present Illness This is a 77-year-old female with respiratory illness. She went to [place] last week and thinks she picked up [...] q6hr, # 6.7 gm, Refills(s) 0, [facility], [facility], cm, 09/20/23 15:16:00 EST, Height/Length Dosing, 83.7, kg, 09/20/23 15:16:00 EST, Weight Dosing cefdinir, 300 mg = 1 cap(s), Oral, q12hr, X 10 day(s), # 20 cap(s), Refills(s) 0, [facility], 153, cm, 09/20/23 (more content not included)... Normal [facility] Comment on above: Result Comment: [...] Follow these instructions at home: ? Take sgoq-bwf-zacnkaq and prescription medicines only as told by [...] and water are not available, use hand chief enterprise architect. ? Avoid contact with people who have [...] is easier to cough up. ? Take jder-hto-etcbfvi and prescription medici (more content not included)... Normal [facility] Consent for Flu Vaccineon Consent for Flu Vaccine [id number]#1.00TI FF Normal [facility] Family Medicine Office/Clini c Noteon [...] and milk for heartburn. She has used iohv-cxz-mixpmce Prilosec or Nexium in the distant past. Her eating is not what it used to be. She drinks Sprite. She does not drink coffee or tea in the morning, but has it later in the evening around 5:00 or 6:00. [place] juice tends to raise her sugar. Her [...] scheduled to see neurology on 08/20/2023 in [place]. Her tremors are getting worse. She can [...] added back in addition. Ordered: A1c POC 83574 Microalbumin Level Urine U Protein/Creat Ratio 2. [...] Start date 06/19/23 12:00:00 EST A1c POC 51011 Microalbumin Level Urine U Protein/Creat Ratio 3. CAD (coronary artery disease) (I25.10: Atherosclerotic heart disease of [place] coronary artery without angina pectoris) Currently showing no anginal components. She remains on high intensity atorvastatin, aspirin and ANDREAS inhibitor. Always remain vigilant for anginal equivalents seeking care if noted Ordered: influenza virus vaccine, inactivated, 0.7 mL, Injection, IntraMuscular, Once, Stop date 06/19/23 12:00:00 EST, Routine, Start date 06/19/23 12:00:00 EST A1c POC 72368 Microalbumin Level Urine U Protein/Creat Ratio 4. Diabetic polyneuropathy associated with (more content not included)... Normal [facility] Comment on above: Result Comment: Electronically Signed By : JOSHUA LUCAS, Octavio\.lakeshia\Date and Time Signed: 06/19/23 21:51 EST U Microalbon 06-19-2023 Albumin DL <= 20 mg/L (U) [Mass/Vol] 12.2 microgram/mL Normal 0.0-19.0 [facility] Comment on above: Performed By: #### [id number] ####[facility] [address] [place] [address] U Protein/Creat Ratioon 06-06 Albumin Elph (U) [Mass fraction] 12.5 mg/dL Invalid Interpretation Code [facility] Comment on above: Result Comment: The reference range and other method performance specifications have not been established for this test; results should be integrated into the clinical context for interpretation. Performed By: #### 1 [id number], [id number] ####[facility] [address] [place] [address] Creatinine (U) [Mass/Vol] 173.6 mg/dL Invalid Interpretation Code [facility] Comment on above: Result Comment: The reference range and other method performance specifications have not been established for this test; results should be integrated into the clinical context for interpretation. Performed By: #### 1 [id number] ####[facility] [address] [place] [address] U Prot/Creat Ratio 72.00 mg/gm Cr Normal .00-200.00 [facility] Comment on above: Performed By: #### [id number] ####[facility] [address] [place] [address] Patient Educationon 06-17-20 Patient Education Orthopedics Essential [...] mental health provider. General instructions ? Take czuw-zop-giaonex and prescription medicines only as told by your health care provider. ? Avoid extreme heat and extreme cold. ? Keep all follow-up visits. This is important. Visits may include physical therapy visits. Where to find more information ? National Casa of Neurological Disorders and Stroke: www.ninds.nih.gov Contact [...] Patient Education ? 2022 [employer] Inc. Normal [facility] CT Head or Brain w/o [...] MD Transcribed by: MIKE Technologist: GERSON Normal [facility] Capillary Glucose POCon 10-0 Glucose [Mass/Vol] 105 mg/dL High 55-99 [facility] Comment on above: Result Comment: Notified RN/MD Performed By: #### 2 [id number] #### [facility] [address] [place] [address] Consent for Treatmenton Consent for Treatment [id number]#1.00TIF F Normal [facility] Discharge Instructionson Discharge Instructions [id number]#1.00TI FF Normal [facility] ED Clinical Summaryon 2022 ED Clinical Summary [address] [address] ED Clinical Summary Person Information Name: CARLOS A SOW [facility] Age: 77 Years : 1945 Sex: Female Language: Azerbaijani PCP: Octavio WINTERS MD Marital Status: Phone: [phone] Visit Id: Visit Reason: Sinus Pain/Congestion; Cough; [...] 05/14/2023 14:41:02 05/14/2023 14:41:02 05/14/2023 14:41:02 AD[address]ESS: [facility] [id number] PHYS DOC NOTES: MEDICAL INFORMATION: Prescriptions Given: New Medications [facility], [address] [place], [place] [phone], [phone] predniSONE (predniSONE 20 mg Tab) 3 By [...] EDUCATION INFORMATION: Instructions: Paresthesia; Sinus Infection, Adult, Barp-hg-Kqrn Follow up: With: Address: When: Octavio WINTERS [address] [place], [place] [id number] Business (1) Within 1 to 2 days DIAGNOSIS: Paranasal sinus disease; Sinusitis Normal [facility] ED Note-Physicianon 05-14-20 ED Note-Physician [...] WINTERS Within 1 to 2 days [address] [place] [address]- Business (1) Additional Instructions: Patient Education Paresthesia Sinus Infection, Adult, Kirk-tn-Iblg Problem List/Past Medical History Ongoing Action tremor [...] of right shoulder Insomnia Left lumbar radiculopathy shelter current use of oral hypoglycemic drug Meniere [...] Instructions dextrometh (more content not included)... Normal [facility] Comment on above: Result Comment: [...] ? Medicines that treat allergies (antihistamines). ? Hymx-aug-ajqbnbg pain relievers. ? If caused by bacteria, your doctor may wait to see if you will get better without treatment. You may be given antibiotic medicine if you have: ? A very bad infection. ? A weak body defense system. ? If caused by growths in the nose, surgery may be needed. Follow these instructions at home: Medicines ? Take, use, or apply ruvc-rcv-ydvailt and prescription medicines only as told by [...] cannot use soap and water, use hand chief enterprise architect. ? Do not smoke. Avoid being around [...] follow-up visits (more content not included)... Normal [facility] ED Patient Summaryon 023 ED Patient Summary [address] [address] Patient Discharge Instructions Person Information Name: CARLOS A SOW Age: 77 Years Arrival Date: 05/14/2023 13:21:19 Discharge Diagnosis: Paranasal sinus disease; Sinusitis Primary Care Physician: Octavio WINTERS MD Provider Information Primary Provider: Danish Pires DO Advanced Napper Fixer:None The exam and treatment you received in the Emergency Department were for an urgent problem and are not intended as complete care. It is important that you follow up with a doctor, nurse practitioner, or physician?s tax assistant for ongoing care. If your symptoms [...] Follow-up Instructions: With: Address: When: Octavio WINTERS [address] [place] [id number] Business (1) Within 1 to 2 days In the event that this physician does not participate in your insurance network, please consult with your insurance company to find a nearby participating provider. Patient Education Materials: Paresthesia; Sinus Infection, Adult, Qigx-ie-Kgnn A MESSAGE TO ALL PATIENTS REGARDING OPIOIDS PRESCRIPTION OPIOIDS: WHAT YOU NEED TO KNOW Prescription opioids can be used to help relieve xfpstrae-mj-pbilxw pain and are often prescribed following a [...] be struggling with addiction, tell your health direct care supervisor and ask for guidance or call [facility] (more content not included)... Normal [facility] Patient Educationon 05-10-20 Patient Education [...] health care provider. General instructions ? Take uzjh-alo-ozjrkxg and prescription medicines only as told by [...] monitor yo (more content not included)... Normal [facility] [place] 04-17-2023 Consent [id number]#1.00CD:1 27 Normal [facility] Family Medicine Office/Clini c Noteon [...] and agree with above documented HPI by medical unit secretary. Portions of this record may have been created with voice recognition artificial intelligence software, specifically [employer], [employer] and or [employer]). Substitutions may have occurred due to the inherent limitations of voice recognition and artificial intelligence software. Patient is a 77-year-old female presents to [facility] care, for nonproductive cough, chest tightness, [...] left than the right, states she tried cqgz-jnf-wbmwebl Mucinex with some symptom relief, but has [...] by the radiologist. 77-year-old female presented to [facility], for asthma flareup, symptoms started about a [...] asthma with (more content not included)... Normal [facility] Comment on above: Result Comment: [...] numbers. This can be done either in [place] ([place].S.) or metric measurements. Note that charts and online BMI calculators are available to help you find your BMI quickly and easily without having to do these calculations yourself. To calculate your BMI in [place] ([place].S.) measurements: 1. Measure your weight in [...] for Disease Control and Prevention: www.cdc.gov ? [place] Heart Association: www.heart.org ? National Heart, Lung, and Blood Casa: www.nhlbi.nih.gov Summary ? Body mass index (BMI) is a number that is calculated from a person's weight and height. ? BMI may help estimate how much of a person's weight is composed of fat. BMI can help identify those who may be at higher risk for certain medical problems. ? BMI can be measured using [place] measurements or metric measurements. ? BMI charts are used to identify whether you are underweight, normal weight, overweight, or obese. This information is not intended to replace advice given to you by your health care provider. Make sure you discuss any questions you have with your health care provider. Document Revised: 04/14/2020 Document Reviewed: 02/20/2020 [employer]Early Patient Education ? 2022 [employer]. Pulmonary Medicine Asthma, Adult Asthma is a [...] ? Yo (more content not included)... Normal [facility] XR Chest 2 Viewson 3 [...] mGy = na DAP = na Normal [facility] Physician Referralon 023 Physician Referral [id number]#1.00CD :127 Normal [facility] Physician Referralon 023 Physician Referral [id number]#1.00CD :127 Normal [facility] Auto Diffon 12-19-2022 Basophils/100 WBC (Bld) 0.6 % Normal 0.0-2.0 [facility] Comment on above: Order Comment: Order Added by [place] Ex pert. Performed By: #### 2 [id number], 9124334, 1936105 ####[facility] [address] [place] [address] Basophils/Leukoc ytes Auto (Bld) [Pure # fraction] 0.0 E9/L Normal 0.0-0.2 [facility] Comment on above: Order Comment: Order Added by Luz Ex pert. Performed By: #### 2 703768, 08137257, 7291806, 837626473, 2859991, 6442603 ####[facility] [address] [place] [address] Eosinophils/100 WBC (Bld) 2.7 % Normal 0.0-8.0 [facility] Comment on above: Order Comment: Order Added by Luz Ex pert. Performed By: #### 2 066097, 74754122, 6147128, 808832025, 4342572, 0062969 ####[facility] [address] [place] [address] Eosinophils/Leuk ocytes Auto (Bld) [Pure # fraction] 0.2 E9/L Normal 0.0-0.5 [facility] Comment on above: Order Comment: Order Added by Discern Ex pert. Performed By: #### 2 199206, 75914800, 8561209, 013786492, 4165888, 6093904 ####[facility] [address] [place] [address] Lymphocytes/100 WBC (Bld) 26.4 % Normal 14.0-50.0 [facility] Comment on above: Order Comment: Order Added by Discern Ex pert. Performed By: #### 2 701890, 62056551, 6071746, 733492672, 9072218, 0882273 ####[address] [address] Lymphocytes/Leuk ocytes Auto (Bld) [Pure # fraction] 1.6 E9/L Normal 1.0-4.0 [facility] Comment on above: Order Comment: Order Added by Lzu Ex pert. Performed By: #### 2 871695, 86465374, 6043916, 161527882, 9056573, 7804880 ####[address] [address] Monocytes/100 WBC (Bld) 9.6 % Normal 4.0-14.0 [facility] Comment on above: Order Comment: Order Added by Discern Ex pert. Performed By: #### 2 296178, 14812504, 7874626, 517000590, 9894516, 4934120 ####[facility] [address] [place] [address] Monocytes/Leukoc ytes Auto (Bld) [Pure # fraction] 0.6 E9/L Normal 0.2-1.0 [facility] Comment on above: Order Comment: Order Added by Discern Ex pert. Performed By: #### 2 480224, 32053474, 4109624, 284498617, 0529060, 8062415 ####[facility] [address] [place] [address] Neutrophils/100 WBC (Bld) 60.7 % Normal 36.0-75.0 [facility] Comment on above: Order Comment: Order Added by Luz Ex pert. Performed By: #### 2 849067, 12160693, 1383451, 367237899, 5595962, 5248374 ####[address] [address] Neutrophils/Leuk ocytes Auto (Bld) [Pure # fraction] 3.7 E9/L Normal 2.0-7.5 [facility] Comment on above: Order Comment: Order Added by Luz Ex pert. Performed By: #### 2 916007, 93686311, 9641709, 632923045, 4423253, 3109023 ####[address] [address] CBC w/ Auto Diffon Erythrocyte distribution width (RBC) [Ratio] 14.2 % Normal 10.9-14.2 [facility] Comment on above: Performed By: #### 5321448, 67759100, 29 77461, 935205866, 5028451, 6313612 ####[address] [address] Hematocrit (Bld) [Volume fraction] 38.1 % Normal 34.0-46.0 [facility] Comment on above: Performed By: #### 8761258, 55096253, 29 20421, 584015302, 8999150, 3351265 ####[facility] [address] [place] [address] Hemoglobin (Bld) [Mass/Vol] 12.8 g/dL Normal 12.0-16.0 [facility] Comment on above: Performed By: #### 6219948, 32277390, 29 98832, 293827346, 3992349, 9436253 ####[facility] [address] [place] [address] MCH (RBC) [Entitic mass] 30.2 pg Normal 27.0-34.0 [facility] Comment on above: Performed By: #### 4981584, 91610521, , 702923039, 1474505, 7167437 ####[facility] [address] [place] [address] MCHC (RBC) [Mass/Vol] 33.5 g/dL Normal 31.4-36.0 [facility] Comment on above: Performed By: #### 7192681, 39058283, , 676765808, 0385446, 9859156 ####[address] [address] MCV (RBC) [Entitic vol] 90.3 fL Normal 80.0-100.0 [facility] Comment on above: Performed By: #### 9615952, 71975150, , 187635234, 7668602, 7682100 ####[address] [address] Platelet mean volume (Bld) [Entitic vol] 9.3 fL Normal 6.4-10.8 [facility] Comment on above: Performed By: #### 0764043, 95820193, , 720297518, 2092889, 0006342 ####[address] [address] Platelets (Bld) [#/Vol] 251.0 E9/L Normal 150.0-500.0 [facility] Comment on above: Performed By: #### 3718143, 36980202, , 774819582, 6670070, 7775261 ####[address] [address] RBC (Bld) [#/Vol] 4.2 E12/L Low 4.3-5.9 [facility] Comment on above: Performed By: #### 0166016, 58943095, , 117880823, 6073212, 5724080 ####[address] [address] WBC corrected for nucl RBC Auto (Bld) [#/Vol] 6.1 E9/L Normal 4.0-11.0 [facility] Comment on above: Performed By: #### 3445494, 18588706, 29 14320, 618396101, 4843017, 8452827 ####[facility] [address] [place] [address] CMPon 12-19-2022 Albumin [Mass/Vol] 4.2 g/dL Normal 3.3-5.0 [facility] Comment on above: Performed By: #### 7855539, 01246275, 29 98086, 468602840, 7760316, 3451172 ####[address] [place] [address] Albumin/Globulin (S) [Mass conc ratio] 1.5 Normal 1.1-2.2 [facility] Comment on above: Performed By: #### 5645317, 95655081, 70, 372902101, 8051916, 8400195 ####[facility] [address] [place] [address] ALP [Catalytic activity/Vol] 53 Int._Unit/L Normal 21-98 [facility] Comment on above: Performed By: #### 6641251, 19997963, 70, 574880914, 0276885, 6531013 ####[address] [place] [address] ALT No additional P-5'-P [Catalytic activity/Vol] 21 Int._Unit/L Normal 6-46 [facility] Comment on above: Performed By: #### 0567891, 46789019, 29 59050, 562688162, 4469317, 1389043 ####[facility] [address] [place] [address] Anion gap [Moles/Vol] 12 mmol/L Normal 6-16 [facility] Comment on above: Performed By: #### 7775800, 81351100, 29 53633, 952840984, 3400121, 5214689 ####[facility] [address] [place] [address] AST [Catalytic activity/Vol] 26 Int._Unit/L Normal 5-43 [facility] Comment on above: Performed By: #### 8765975, 47848318, 29 41232, 152835320, 4493758, 1196350 ####[facility] [address] [place] [address] Bilirubin [Mass/Vol] 0.9 mg/dL Normal 0.0-1.1 [facility] Comment on above: Performed By: #### 5770168, 42802494, 29 51296, 442766444, 6272533, 1640460 ####[facility] [address] [place] [address] Calcium [Mass/Vol] 9.7 mg/dL Normal 8.9-11.1 [facility] Comment on above: Performed By: #### 4526075, 15706784, 29 59130, 586373751, 5565328, 3587574 ####[facility] [address] [place] [address] Chloride [Moles/Vol] 103 mmol/L Normal 101-111 [facility] Comment on above: Performed By: #### 1987156, 11165769, 29 18747, 379786851, 0392070, 4730392 ####[facility] [address] [place] [address] CO2 [Moles/Vol] 31 mmol/L Normal 21-31 [facility] Comment on above: Performed By: #### 9960465, 37452221, 29 30561, 924735023, 1082006, 7870142 ####[facility] [address] [place] [address] Creatinine [Mass/Vol] 0.9 mg/dL Normal 0.5-1.3 [facility] Comment on above: Performed By: #### 1009177, 55466333, 29 28300, 408049954, 9645127, 4978927 ####[address] [place] [address] Globulin (S) [Mass/Vol] 2.8 g/dL Normal 1.4-4.0 [facility] Comment on above: Performed By: #### 1649400, 68299099, 29 02522, 037674796, 6482142, 0574562 ####[facility] [address] [place] [address] Glucose [Mass/Vol] 104 mg/dL Normal 55-199 [facility] Comment on above: Result Comment: If this glucose result r epresents a fasting glucose, interpretation should refer to the following reference range: 55-99 mg/dL Performed By: #### 2 007185, 69852294, 8946816, 203397759, 3767813, 5622884 ####[facility] [address] [place] [address] Potassium [Moles/Vol] 4.7 mmol/L Normal 3.5-5.3 [facility] Comment on above: Performed By: #### 6544112, 42784807, 70, 755131714, 4243294, 8262994 ####[facility] [address] [place] [address] Protein [Mass/Vol] 7.0 g/dL Normal 6.0-7.8 [facility] Comment on above: Performed By: #### 5488188, 05855114, 29 27276, 459488668, 5605517, 0395876 ####[facility] [address] [place] [address] Sodium [Moles/Vol] 141 mmol/L Normal 135-145 [facility] Comment on above: Performed By: #### 8940340, 50726310, 29 90649, 823800317, 8682174, 4051776 ####[facility] [address] [place] [address] Urea nitrogen [Mass/Vol] 27 mg/dL High 5-21 [facility] Comment on above: Performed By: #### 5528168, 99907119, 29 [address], 338626654, 5143267, 0803135 ####[facility] [address] [place] [address] Urea nitrogen/Creatin ine [Mass ratio] 30 No Units High 10-20 [facility] Comment on above: Performed By: #### 2723900, 23304019, 29 93202, 711784745, 7214130, 1224878 ####[facility] [address] [place] [address] Consent for Immunizationon 0 12-19-2022 Consent for Immunization [id number]: 127 Normal [facility] Family Medicine Office/Clini c Noteon 12-19-2022 Family Medicine Office/Clinic Note Chief Complaint 6mo chk up, fasting, rf meds to wm/n History of Present Illness Bfa-aojtydp-lmeanshbs diabetic presenting for routine follow-up. Reports that Accu-Cheks are averaging less than 110 no hypoglycemic symptoms denies polyuria polydipsia or visual disturbance. She enjoyed visit to [place] with her son and ovebefpw-vc-pka earlier this winter. Does complain dysphagia, very [...] but supple no JVD no bruits. Adequate [place] dentition with prominent torus palatini Cardiothoracic: Regular rate and rhythm distant heart sounds no murmur gallop or rub. Mild chronic nonpitting edema bilateral lower extremities pulses +1 Respiratory: CTA bilaterally Abdomen/GI: Obese nontender no organomegaly Genitourinary: Deferred Musculoskeletal: Short stature well-developed. Neurologic: Does demonstrate an intention tremor in the right hand greater than the left. Abe Teacher strength intact. Ambulatory without assistance Integument: Skin deeply tanned. Warm and dry no rash or lesions exposed surfaces no petechiae Psychiatric: Cooperative fairly talkative reasonable insight Assessment/Plan 1. CAD (coronary artery disease) (I25.10: Atherosclerotic heart disease of [place] coronary artery without angina pectoris) Remain vigilant for anginal equivalents. Continues with good blood pressure control aspirin and use of statin. Ordered: Lab Specimen Collect [id number] 2. Diabetic polyneuropathy associated with type 2 diabetes mellitus (E11.42: Type 2 diabetes mellitus with diabetic polyneuropathy) Reminded patient to always wear shoes. Avoid any activities that could cause skin breakdown. Monitor for any injuries. Ordered: Lab Specimen Collect 70537 3. Type 2 diabetes mellitus with hyperlipidemia, (E11.69: Type 2 diabetes mellitus with other specified complication)Type 2 diabetes mellitus with morbid obesity Reviewed with patient the importance of statin management and efforts at weight loss to prevent any progression of cardiovascular disease progression. Ordered: Lab Specimen Collect 77729 5. Mixed hyperlipidemia (E78.2: Mixed hyperlipidemia) Continue with high intensity statin Labs are drawn today results to follow Ordered: Lab Specimen Collect 83590 6. shelter current use of oral hypoglycemic drug (Z79.84: shelter (current) use of oral hypoglycemic drugs) Always monitor for hypoglycemia keeping a rapid acting glucose available Ordered: Lab Specimen Collect 65623 7. HTN - Hypertension (I10: Essential (primary) [...] is concerning (more content not included)... Normal [facility] Comment on above: Result Comment: Electronically Signed By : JOSHUA LUCAS, Octavio\.br\Date and Time Signed: 12/19/22 12:19 EDT ZsbY4lid 12-19-2022 HbA1c (Bld) [Mass fraction] 6.0 % High <=5.9 [facility] Comment on above: Performed By: #### 3513232, 86538471, 29 03118, 423962263, 6844482, 9819908 ####[facility] [address] [place] [address] Lipid Panelon 12-19-2022 Cholesterol [Mass/Vol] 102 mg/dL Low 120-200 [facility] Comment on above: Performed By: #### 0111316, 78514875, 29 69807, 957243523, 7327505, 1926827 ####[facility] [address] [place] [address] Cholesterol in HDL [Mass/Vol] 46 mg/dL Invalid Interpretation Code [facility] Comment on above: Result Comment: HDL > or equal to 60 mg/ dL: Low cardiovascular risk HDL < 40 mg/dL : High cardiovascular risk Performed By: #### 2 182832, 87147042, 8673048, 262435834, 7238516, 2669793 ####[facility] [address] [place] [address] Cholesterol in LDL [Mass/Vol] 42 mg/dL Normal <=129 [facility] Comment on above: Performed By: #### 6538871, 09264065, 29 74231, 028161824, 7135543, 8546823 ####[facility] [address] [place] [address] Cholesterol in VLDL [Mass/Vol] 21 mg/dL Normal 7-40 [facility] Comment on above: Performed By: #### 6953040, 95111995, 29 81706, 164295712, 0188293, 9646315 ####[facility] [address] [place] [address] Triglyceride [Mass/Vol] 104 mg/dL Normal <=149 [facility] Comment on above: Performed By: #### 1786653, 48074077, 29 04835, 089522144, 7016250, 8963132 ####[facility] [address] [place] [address] Patient Educationon 12-20-19 Patient Education Endocrinology Diabetes Mellitus and Foot Care Foot care is an important part of your health, especially when you have diabetes. Diabetes may cause you to have problems because of poor blood flow (circulation) to your feet and legs, which can cause your skin to: ? Become thinner and drier operator head. ? Break more easily. ? Heal more [...] immediately. Where to find more information ? [place] [employer]: www.diabetes.org ? Association of Diabetes [...] Reviewed: 02/10/2021 Elsevier Patient Education ? 2022 [employer] Normal [facility] eGFRon 12-19-2022 GFR/1.73 sq M.predicted among non-blacks MDRD (S/P/Bld) [Vol rate/Area] 65 mL/min/1.73 m2 Normal >=59 [facility] Comment on above: Order Comment: Order added by Discern Ex pert. Result Comment: Oracle Database Administrator itzel kidney disease could be indicated at eGFR's of less than 60 mL/min/1.73m2. Kidney failure is indicated at less than 15 mL/min/1.73m2. Performed By: #### 2 173540, 61200075, 5049744, 342365018, 7167789, 9002751 ####[facility] [address] [place] [address] Outside Diabetes Eye Examon 11-06-2022 Outside Diabetes Eye Exam [id number]: 127 Normal [facility] Coding Summary.on 11-03-2022 Coding Summary. CD:[id number] Ww+P GhlYWQ+NG8RUGQaE95ywFNde C3oM1LULRsMIvkcSEKPHNbII pFlmsCzMZ1axHKoFBGp IC8+MD5sYPElLiuncYSvr2K9 bOX1C61eun6wFAqxiSW9KXTr QuZufexzs7utmLg2AEzxMoac OyBt LLOcuQ57NDJ6gO86Ud77gBXk pGWej2dbeVt2SeHyLSWjKFW9 oZugPFaky8CoHQOuW96glACg c2U6 KSVseJzymVKbBmCvlIB8aR9j XWwfbeevh5rkvuqwWcg3mb46 tRUsp6L8eOT1A1DsgfR5IGLp bGQg PpegoGUHmQ9jmaqxc1lmaiip QxBrBKPhISh3YAc5QGDxpIvg GcMnNI37YEO9SWYzxtUsV5Cp LWFs cKiwQmX4y2D3Wz8CN9WBMfhu D9DFKJRGTOgqwVZ+DE93tu57 U6FhZffxRez6SBWsWYA0fHS4 aD0n ZGLnOPtlk4H6vHZ3W3LwdfQz jk6fn2fvEGRyPEagT35ovRRc l0S3EBSryKR9QINfuAbcThVi aG93 Oyc+QHJtuVjjb6NeEburc1bb t2bqaFv7HorsZKLzdaLqjAau RPZ4d2NfIa3mDLExkFU5vGF3 aD0i WuVjQkU3DNbeG896LjXksKZy MdtwG34tA7ShuNC+PHRyPjx0 IBMtnUkpFE8wY3UiULIkuonw bGVm vDjoVQ3hJHScagtlPLSygJ6a VSXbA3z8UzQgHjR8PJlpL0Yc SBCsigrgRq85sZ9iVfCkOrQ2 MGlu O3WeexD0IUJfmDObNIkpKBF0 Y75xb3W8MACnBCXgDDI1eJX6 eE6ysYsdiennbOGzhNgvfiLe dGlj JNryWZyxR618MEJxpCxnQeAd ZGluZyBEYXRlOiAgMDMvMzEv MjAyMzwvdGQ+NSPjTOB1aBtu PSAn xAJxHQqnPj0noJmmdPdbKM9f TVQpkozjRZLkgA6oHBSycALl bPkvEF8rJGEjfjwcv443XsEp MHB0 TVNbpCGfQ8KbgV3vPzClYZJc CXWoT5ZhyEDnJGvmJ524TIiq OwF0ZTKbnsRkB1JfPYJbzMph OiB0 n4K1Zh4Pz1WluxspH0SkgOFr RgEdQrsnVWk4T6FcWrfqeTQ+ QD14PBXlAZ67PWq4BVC2zWjw PSdi WPJuR4BvwT8jHsXpYBRySPMa Oyc+PHRhYmxlIHdpZHRoPScx BZQmDvJhqOheGZ4sTh7lKPJt LWNv kTbsuRIhQnMmq8qlBLJdIDaw YG9bkAajG1XmdZE2MAIts8o9 Ja84H93iV9AfhPK+PGNvbCB3 aWR0 wB2zFdXfBtI3WAiaO641XsKl uDJzFyonj2mvu6cowHl0RtG2 CYUwioRtiVdyLAP0e5CeRw55 Y29s IHdpZHRoPSIxNSUiIHZhbGln sx2wzZ7eYz7+QMOmkIT2wUV6 tT4lZtKfEnK7AMhiI300YlHp cCIv Hdncl9olu9vhmAi1JoVrUCVy oaJgjOrjBGG8r2LaIl49Y6Oj kGgyc3ZxGha5pu87eUOvv5E4 bGU9 M7TlDUQuoadtiBZolKyxEI5y JKKeinozVYHafY7pBQErO0c1 GfKqKvJ2LYjjL4JdkdI7KLOo bGQg UPFlvLYAhU4brxacn0wibink CqYqXVSiPBg7VBj5NCTrkGed JeBzZPM0WqD2RMB0lMWrpU6r bGln irkavU1sDce+MOD0bPQrdTUO YL7vXwqaaMN+NNVlZPL9vAvt IPkqTRUlmH9sTHCqD3v2NkXl LjA1 OHlhT0XwtjM5YNTooWUpUJSn aLMItM0huknyv4syqoapRhJb NIGdYYr5UDi1WHPgoEzxGyEi ZWZ0 GrJ9OCC9qXIpcI2rlBwtjtzl tJ0xBzr+ItecyApzYOY5MWx6 M7LgEyz6EGSyiRsxWU4uaXLq ZGlu Up7ddZbafMdqNR1nTYRnegbg l676WfCcg0spIUUleKGfIBtg WER0E35ym2R1NCJiNVElIQG5 dGV4 nH3uvNrrdsfmqAHwrLgcmiVw yDhtXWtvGUvaN577RSXyqZax YfQpJJy7B3DqOfp4YBJzeWql ZT0n uWRwTUisMi3hxGrxsDdpJQ7b TKOxlcffr792RtEpn8bpELAp uQKtWLldFEL8W05ig9Z6ZLAj MDAw WRH0xVO6fW6oeYkqgtvwvGWl kJhddeDwmTibNLzeFPimN463 TLIqrIyyZeDyeYp3Z8LqMna3 ZCBz pAgpYJ9biAPfWPzqKi7ytIqw hGqdZG2hJMAaiqhbo956TkXt w4kjHJDxfVDkZWzoPOS1V93h b3I6 FJNkORDcXKH9xJI9wR3bsDnf bjogbGVmdDsgdmVydGljYWwt KKwxN826AFWhtVneMzSyrZvt bnQg UBpwDUa8S3SoMkxcrPS+PC90 ZVVfCQ87hQLkpFTyh3oxzTd6 RaKnLTKdQIR9uWqkBQjrz7Ai ZXIt W40vgDBth3C9KTIpjZvpcQTr JuRvlOY5gH4fHSrjyydwt8lb benoGpema3wgnw11iV40D20m IHdp KTXhTFRsVMYwZUFgpNqwxs9p hJ8hDx1+QKWngGO1tMN7dB3j YATuMyB2VKajN850ZaAsuPSk Pjxj b2qsx5ffuGy0KwX0SKWdgfXs pVesILE7z1QnJw16L16fTDor HTIkRKMfDBIwUAZytXunne1g dG9w Ii8+IPBreQV0mZP5mT2fJuQi HrG3LZtlH921JhNhjXCpGegb J32sL5OwkIV+IZDxGfe2YXIt dHls JM8zaZXyYLskXy9iDWI3BlId RfSyXDqnO3GyVZAwbqhneklk yQY7WMEvCLNcsY61Sb4brOry MTBw mWGBdN4uvicbp3xbtdkcWoLd RROdJZn4NNs2QGBupZpqNwQc ANQ4OkR0LEN6jEOpwV9lsSra bjog dC2bB7VmOKUhzbwdQc34oT9o BsFsUbZ8KOpeGmo+QkFMTCwg M69FHsRsCjvcuBB+PHRkIHN0 eWxl QWlvMDXroG7bXUImB6u2RpEq ViD4YXzdB7BnUYKzqaemMn37 oV0vJjGhQqV4FXfuG9GmawV9 IDEw nQKcEVkcPHA0C84ne5F3RRSz WYPgGBQ5sPG1cN0haFanhgno bGVmdDsgdmVydGljYWwtYWxp Z246 PQUgaCgqNxSaUyC3GjH3LFV5 O8ToDtd8JJUibZwsVV8xlLXm HZlfSn6tvSqmqPetGX4bHHRa bjtw WEFtkH2eBDJdsWUdrHdhVT8l KPJpgazzz493YpRzCCB2JWZc dUYbC1QnwU4pMkSrFKNaUUXl O3Rl rBUxFLrqY645VCoxNwW1NYWm yzEoQ4JpKPNhzKjyShB8w5B8 Rz50WZAWNTVevppkeKT+PHRk IHN0 oAvkZRufLDUmpZ0tXHBnU0t7 JtLcReF4QGzoO6JdMIMlqjnj Jn42lT1aMfZmEbS2PJmjD9Hj bnQ6 NOGjeWIlTMwpEKV4L85iu6Z1 GCUuSLBgCLT4rCH5kS8qkUiu bjogbGVmdDsgdmVydGljYWwt YWxp O985JSAwtSyuXuPrzUJhAQpx dGQ+TCIfBBQ1dWasWZjbMEQw mP6rKPQeG4h7ZjOcSjM1EJsg O3Bh QBBfiwkxIt02aH3dAnDfQhN8 ADvbL7WsltA0ZIDtfQRvNYxw PQC5E54yz4X7XZFsFLSiPHF6 dGV4 wA7gqLcxjvbwgBLejMersnLm mLjhKEaaBHvoW959TYDdsHwy Ct48dWJzdIzpcoY2V9VfGqsp dHI+ CL90SOHyNO81mRSytPMex1vn dRf7BeJfJKOhBEA3rEyqLAes z1SzTVFhQ80wuVUly3Q1LDIk bGxh zMIjLhAgyPD3mI4mGRdkvquq b5wfyjpzTaryi1kxhz38oK66 M54vYXtmKWVsPKOrORUgDGZs bGln kq2bfJ0gJm7+FYYmbML3kBN4 cN4fErCqZwH6CKzrO736LlVz eIRsRnuzy3ssj2pazZw5KxJb JSIg uvNpjKoyCBA8b9OvOc89J83z IHdpZHRoPSIyMCUiIHZhbGln rt6uaY8vLc7+GZ9re2phwi16 cD48 dHI+AFQmUDC5gDrcODnoOCUv nE8nAAolKdE5DXUbEaYpqX10 xKOoRWltRb7kgQarlWijHD8r NTBp lcvhl058JfBes1gpJRUfoWXj GWikZOB9K55bk7R8LNGuSXKn ZTB5sZF7lD2vhZubaujzdCWz dDsg qgRldEzeTFzzBTjlA418HWQp xSylMqOhgIDdN6qtnoBLJY4d OjwvdGQ+BUZuQYU7rQfoFMir YWRk zQ8xXJKhU2f0QmLrWkE2JFcu E7EulmT4SFYyyJLyJYWypWCQ oL1kardvz7nfkalkMmIsNOBy MDt0 KFr4JDDxbFlqTdUgFSL0RyM3 MFC1kYXgkO0tsSqwqpcscP7y Oyc+RklOOjwvdGQ+PHRkIHN0 eWxl WSqdIQXicA3iVPKsS0c6PhHi WbL7PQefD1UbgyR8WDTitJIe EEUcyCUBcZ6pgeudw7cfscwi IzAw WKXfTXr7WCk7EKQwvVghMvQv EOY4JfK7YJO0lGWejM2yzGev ceuqaQ9ePiy+TVJOOjwvdGQ+ PHRk NRM1oEnzGHdoGRPonQ0vEMOs R3k7OzUsPoQ0HWkpD6SmwxV3 MHLfzXQbNEHigLFJeS3abdgt b2xv ervuXlRiAYNbOKe4XBy7CNZi vUgzCdFrFKS9TaE4STE5wDSc aE9miAhqtnxyiA1mOpx+UGF5 ZXI6 BX88XI74K1IpYvzmmCIlzJI+ PHRhYmxlIHdpZHRoPScxMDAl DaWcfLtxXZ2mFy3nVAGpBUZp bGxh cHNlOiBj (more content not included)... Normal [facility] Blood Urea Nitrogenon 2020 Urea nitrogen [Mass/Vol] 18 mg/dL Normal 04-28 [facility] Comment on above: Order Comment: PT IS NOT FASTING Performed By: #### B UN, CBC, CREAT, LYTES #### [address] Complete Blood Count Auto Di ffon 01-25-2021 Basophils (Bld) [#/Vol] 0.0 10*3/uL Normal 0.0-0.2 [facility] Comment on above: Result Comment: PERFORMED BY: [place] [address] PATHOLOGIST [employer] NAJMA ZUNIGA M.D. Performed By: #### B UN, CBC, CREAT, LYTES #### [address] Basophils/100 WBC (Bld) 0.9 % Normal . [facility] Comment on above: Performed By: #### BUN, CBC, CREAT, LYTE S #### [address] Eosinophils (Bld) [#/Vol] 0.2 10*3/uL Normal 0.0-0.45 [facility] Comment on above: Performed By: #### BUN, CBC, CREAT, LYTE S #### [address] Eosinophils/100 WBC (Bld) 4.2 % Normal . [facility] Comment on above: Performed By: #### BUN, CBC, CREAT, LYTE S #### [address] Erythrocyte distribution width (RBC) [Ratio] 14.4 % Normal 11.9-15.3 [facility] Comment on above: Performed By: #### BUN, CBC, CREAT, LYTE S #### [address] Hematocrit (Bld) [Volume fraction] 36.8 % Normal 34.0-46.4 [facility] Comment on above: Performed By: #### BUN, CBC, CREAT, LYTE S #### [address] Hemoglobin (Bld) [Mass/Vol] 12.6 g/dL Normal 11.8-15.4 [facility] Comment on above: Performed By: #### BUN, CBC, CREAT, LYTE S #### [address] Lymphocytes (Bld) [#/Vol] 1.2 10*3/uL Normal 1.00-4.8 [facility] Comment on above: Performed By: #### BUN, CBC, CREAT, LYTE S #### [address] Lymphocytes/100 WBC (Bld) 22.8 % Normal . [facility] Comment on above: Performed By: #### BUN, CBC, CREAT, LYTE S #### [address] MCH (RBC) [Entitic mass] 31.1 pg Normal 24.7-34.3 [facility] Comment on above: Performed By: #### BUN, CBC, CREAT, LYTE S #### [address] MCV (RBC) [Entitic vol] 91.3 fL Normal 80-100 [facility] Comment on above: Performed By: #### BUN, CBC, CREAT, LYTE S #### [address] Mean Corpuscular HGB Conc 34.1 g/dL Normal 32.0-35.0 [facility] Comment on above: Performed By: #### BUN, CBC, CREAT, LYTE S #### [address] Monocytes (Bld) [#/Vol] 0.6 10*3/uL Normal 0.0-0.8 [facility] Comment on above: Performed By: #### BUN, CBC, CREAT, LYTE S #### [address] Monocytes/100 WBC (Bld) 12.1 % Normal . [facility] Comment on above: Performed By: #### BUN, CBC, CREAT, LYTE S #### [address] Neutrophils (Bld) [#/Vol] 3.1 10*3/uL Normal 1.8-7.7 [facility] Comment on above: Performed By: #### BUN, CBC, CREAT, LYTE S #### [place] [address] [place] Neutrophils/100 WBC (Bld) 60.0 % Normal . [facility] Comment on above: Performed By: #### BUN, CBC, CREAT, LYTE S #### [place] [address] [place] Nucleated RBC/100 WBC (Bld) [Ratio] 0.2 % Normal 0-0.5 [facility] Comment on above: Performed By: #### BUN, CBC, CREAT, LYTE S #### [address] Platelet mean volume (Bld) [Entitic vol] 8.9 fL Normal 6.3-10.7 [facility] Comment on above: Performed By: #### BUN, CBC, CREAT, LYTE S #### [address] Platelets (Bld) [#/Vol] 254 10*3/uL Normal 150-450 [facility] Comment on above: Performed By: #### BUN, CBC, CREAT, LYTE S #### [address] RBC (Bld) [#/Vol] 4.03 10*6/uL Normal 3.60-5.00 [facility] Comment on above: Performed By: #### BUN, CBC, CREAT, LYTE S #### [address] WBC (Bld) [#/Vol] 5.1 10*3/uL Normal 4.5-11.0 [facility] Comment on above: Performed By: #### BUN, CBC, CREAT, LYTE S #### [address] Creatinineon 01-25-2021 Creatinine [Mass/Vol] 0.83 mg/dL Normal 0.44-1.03 [facility] Comment on above: Order Comment: PT IS NOT FASTING Performed By: #### B UN, CBC, CREAT, LYTES #### [address] Estimated GFR ( Harika > 60 Normal [facility] Comment on above: Order Comment: PT IS NOT FASTING Result Comment: GFR estimated reference range: According to KDOQI guidelines, <60 ml/min/1.73m2 is sufficient to diagnose a patient with chronic kidney disease. PERFORMED BY: [place] [address] PATHOLOGIST LOCKSTITCH ZIPPER SETTER NAMJA ZUNIGA M.D. Performed By: #### B UN, CBC, CREAT, LYTES #### [facility] [address] Estimated GFR (Non- Am > 60 [facility] Comment on above: Order Comment: PT IS NOT FASTING Performed By: #### B UN, CBC, CREAT, LYTES #### [facility] [address] ECG 12 lead ECGon 01-25-2021 ECG 12 lead ECG [facility] Main [place] [address] [place] [address] Electrocardiograph Report Signed Patient: Carlos A Sow MR#: [id number] : 1945 Acct:[id number] Age/Sex: 75 / F ADM Date: 01/25/21 Loc: [place] Room: Type: [facility] Attending Dr: Cassi Zazueta MD Ordering Provider: [...] DO 01/25/21 1351 Signed By: 01/26/21 1255 [facility] Electrolyteson 01-25-2021 Chloride [Moles/Vol] 98 mmol/L Normal 95-114 [facility] Comment on above: Order Comment: PT IS NOT FASTING Performed By: #### B UN, CBC, CREAT, LYTES #### [facility] [address] [place] [address] [place] CO2 [Moles/Vol] 30.5 mmol/L High 22.0-30.0 [facility] Comment on above: Order Comment: PT IS NOT FASTING Performed By: #### B UN, CBC, CREAT, LYTES #### [facility] [address] [place] [id number] [facility] Potassium [Moles/Vol] 4.0 mmol/L Normal 3.5-5.1 [facility] Comment on above: Order Comment: PT IS NOT FASTING Performed By: #### B UN, CBC, CREAT, LYTES #### [facility] [address] [place] [id number] [facility] Sodium [Moles/Vol] 140 mmol/L Normal 136-146 [facility] Comment on above: Order Comment: PT IS NOT FASTING Performed By: #### B UN, CBC, CREAT, LYTES #### [facility] [address] CNOVon 12-19-2017 CNOV Office Visit (VASSFT) JOHANA SOW ([id number]) 1945 [facility] Time Provider Department12/19/17 10:00 AM MIKY GLEZ During your visit today, we recorded the following information about you: Pulse Respiration Blood pressure 73/minute 16/minute 120/57Miky Glez MD 12/19/2017 10:42 AM [facility] and Fina Kimble Department of Cardiovascular MedicineOUTPATIENT VISIT DATE December 19, 2017OUTPATIENT VISIT TYPEESTABLISHEDPRASHE MEMORIAL HOSPITALRY CARE PHYSICIAN:Nakia Garcia MD[address] [place] [address]Zqyle: [phone]: [phone] PHYSICIANSOPHIE [place] [address]YJIBS COMPLAINT:No chief complaint on file.HISTORY OF PRESENT ILLNESS:Carlos A Sow was referred for consultation by self referral. Opinions andrecommendations in this consultation will be transmitted back to the referringphysician by [facility] notes or via mail.Ms. 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 LISINOPRIL [...] (around 03/21/2018).Follow-up and Disposition History RecordedEncounter Number: [id number] Status:Closed by MIKY GLEZ MD on 12/19/17 Normal [facility] PROGRESSon 12-19-2017 PROGRESS HNO ID: [id number]: Miky GlezService: (none)Author Type: PhysicianType: Progress NotesFiled: 12/19/2017 10:42 AMNote Text:[facility] and Fina Morris Department of Cardiovascular MedicineOUTPATIENT VISIT DATE December 19, 2017OUTPATIENT VISIT TYPEESTABLISHEDPRASHE MEMORIAL HOSPITALRY CARE PHYSICIAN:Nakia Garcia MD[address] [place], [place] [address]Cmnnp: [phone]: [phone] PHYSICIANSOPHIE [place] [address]OOJRE COMPLAINT:No chief complaint on file.HISTORY OF PRESENT ILLNESS:Carlos A Sow was referred for consultation by self referral. Opinions andrecommendations in this consultation will be transmitted back to thereferring physician by [facility] notes or via mail.Ms. 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 [id number] Normal [facility] CNOVon 11-28-2017 CNOV Office Visit (VASSFT) JOHANA SOW ([id number]) 1945 FDate Time Provider Department11/28/17 10:15 AM MIKY GLEZ During your visit today, we recorded the following information about you: Pulse Respiration Blood pressure Weight 114/minute 16/minute 117/71 87.5 kgMiky Glez MD 11/28/2017 10:25 AM [facility] InstituteRobert [facility] Fina Kimble Department of Cardiovascular MedicineOUTPATIENT VISIT DATE November 28, 2017OUTPATIENT VISIT TYPENEWPRIMARY CARE PHYSICIAN:Nakia Garcia MD[address] [place], [place] [address]Immcx: [phone]: [phone] Leatha Garcia MD[address] [place] [address]IIEAO COMPLAINT:No chief complaint on file.HISTORY OF PRESENT ILLNESS:Carlos A Sow was referred for consultation by self referral. Opinions andrecommendations in this consultation will be transmitted back to the referringphysician by [facility] notes or via mail.Ms. 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 ASPIRIN 81 MG TABLET,DELAYED * Take 1 tablet by mouth once d* EVBKKUWNRYPB-IDWGGTEM-KY TEIN * Take one(1) tablet daily. LISINOPRIL [...] Historical Med Route: NASAL Sig: Use 1 Coffey in the nose. Use one spray in each nose as needed Disc: Reason for discontinue is not on file. pravastatin (PRAVACHOL) 20 mg ORAL t* 0 10/18/2010 11/28/2017 Class: Historical Med Route: ORAL Sig: Take 1 tablet by mouth once daily. Disc: Reason for discontinue is not on file.Disposition: Return in about 2 weeks (around 12/12/2017).Follow-up and Disposition History RecordedEncounter Number: [id number] Status:Closed by MIKY GLEZ MD on 11/28/17 Normal [facility] PROGRESSon 11-28-2017 PROGRESS HNO ID: [id number]: Miky GlezService: (none)Author Type: PhysicianType: Progress NotesFiled: 11/28/2017 10:25 AMNote Text:[facility] InstituteValier [facility] Department of Cardiovascular MedicineOUTPATIENT VISIT DATE November 28, 2017OUTPATIENT VISIT TYPENEWPRIMARY CARE PHYSICIAN:Nakia Garcia MD[address] [place], [place] [address]Mcgcf: [phone]: [phone] PHYSICIANSOPHIE [place] [address]CYRBB COMPLAINT:No chief complaint on file.HISTORY OF PRESENT ILLNESS:Carlos A Sow was referred for consultation by self referral. Opinions andrecommendations in this consultation will be transmitted back to thereferring physician by [facility] notes or via mail.Ms. Sow is a [...] - PAST MEDICAL HISTORY OF Single G 16833-S mutation identififed as cause of inherited thrombosisadn [...] 87.5 kg (193 lb) SpO2 96% BMI 34.19kg/n2Rfvusqn appearance: well nourished, alert and cooperative individual, [...] up with test results.Miky Glez MD Normal [facility] Vital Signs Date Time Vital Sign Value Performing Clinician Faci lity 10-11-2023 13:56-0500 Body height 154.9 cm Raven Macias MD Work Phone: [facility] 10-11-2023 13:56-0500 Body mass index (BMI) [Ratio] 35.16 kg/m2 Raven Macias MD Work Phone: [facility] 10-11-2023 13:56-0500 Body weight 84.41 kg Raven Macias MD Work Phone: [facility] 10-11-2023 13:56-0500 Diastolic blood pressure 83 mm[Hg] Raven Macias MD Work Phone: [facility] 10-11-2023 13:56-0500 Heart rate 92 /min Raven Macias MD Work Phone: [facility] 10-11-2023 13:56-0500 Systolic blood pressure 152 mm[Hg] Raven Macias MD Work Phone: [facility] 10-17-2021 12:56-0400 Diastolic blood pressure 120 mm[Hg] Colt Swenson MD Work Phone: [facility] 10-17-2021 12:56-0400 Heart rate 88 /min Colt Swenson MD Work Phone: [facility] 10-17-2021 12:56-0400 Respiratory rate 18 /min Colt Swenson MD Work Phone: [facility] 10-17-2021 12:56-0400 SaO2% (BldA) [Mass fraction] 96 % Colt Swenson MD Work Phone: [facility] 10-17-2021 12:56-0400 Systolic blood pressure 148 mm[Hg] Colt Swenson MD Work Phone: [facility] Encounters Encounter Date Encounter Type Care Provider Facility Start: 10-30-2023 End: 10-31-2023 ambulatory [facility] Start: 10-29-2023 Orders Only Raven Macias MD Work Phone: [facility] Comment on above: Essential tremor (Pr imary Dx) Start: 10-26-2023 End: 10-26-2023 ambulatory Raven Macias MD Work Phone: [facility] Comment on above: Deficit in activitie s of daily living (ADL) (Primary Dx); Benign essential tremor Impaired functional mobility, balance, gait, and endurance (Primary Dx) Start: 10-12-2023 End: 10-13-2023 ambulatory [facility] Start: 10-11-2023 End: 10-11-2023 ambulatory [facility] Start: 10-11-2023 End: 10-11-2023 Office outpatient visit 40 minutes Raven Macias MD Work Phone: [facility] Comment on above: Benign essential lisa mor (Primary Dx) Start: 10-04-2023 End: 10-05-2023 ambulatory DO Mara Hernandez [facility] Start: 09-25-2023 End: 09-26-2023 ambulatory Colton Luke Facility[facility] Start: 09-20-2023 End: 09-21-2023 ambulatory [facility] Start: 07-02-2023 End: 07-02-2023 ambulatory RONALD FORRESTER Not Available Start: 06-19-2023 End: 06-20-2023 ambulatory [facility] Facility[facility] Start: 05-14-2023 End: 05-15-2023 ambulatory [facility] Start: 05-14-2023 End: 05-14-2023 Emergency department patient visit Danish Pires Facility[facility] Start: 04-17-2023 End: 04-18-2023 ambulatory TYLER PETER Facility:[facility] Start: 04-10-2023 Transcribe Orders Octavio Winters MD Work Phone: [facility] Comment on above: Action tremor (Prima ry Dx) Start: 12-19-2022 End: 12-20-2022 ambulatory Octavio WINTERS Facility[place] Start: 03-06-2022 End: 03-06-2022 ambulatory OCTAVIO WINTERS [facility] Start: 11-11-2021 Orders Only Joie Tomas CNP Work Phone: [facility] Comment on above: Essential tremor (Pr imary Dx) Start: 10-17-2021 End: 10-17-2021 Office outpatient new 60 minutes Colt Swenson MD Work Phone: [facility] Comment on above: Essential tremor (Pr imary Dx); Tremor Start: 08-17-2021 Transcribe Orders Colt Swenson MD Work Phone: [facility] Comment on above: Tremor (Primary Dx) Start: 12-19-2017 End: 12-20-2017 Ambulatory MIKY [facility] Start: 11-28-2017 End: 11-30-2017 Ambulatory MIKY VILCHISRAHUL [facility] Plan of Treatment Date Care Activity Detail Author Start: 12-19-2032 Tetanus vaccination Tetanus: Every 1 0yrs [facility] Start: 10-13-2024 ambulatory Ambulatory Facility:[facility] Start: 12-17-2023 ambulatory Ambulatory Facility:[facility] Start: 10-29-2023 End: 10-29-2023 Patient encounter procedure 10/29/2023 2:00 PM EDT Appointment [facility] [address] [place] [address] Raven Macias MD [address] [facility] [address] [place] [address] [facility] [address] Start: 04-06-2023 COVID-19 Vaccine ( season) COVID-19 Vaccine ( season) [facility] Start: 04-06-2023 Influenza vaccination Sequenti al Influenza Vaccine (#1) [facility] Start: 08-17-2021 COVID-19 Vaccine (4 - Moderna series) COVID-19 Vaccine (4 - Moderna series) [facility] Start: 05-18-2017 Pneumococcal Vaccine : Age 65+ (2 - PPSV23 or PCV20) Pneumococcal Vaccine: Age 65+ (2 - PPSV23 or PCV20) [facility] Start: 05-18-2017 Pneumococcal Vaccine : Age 65+ (2 of 2 - PPSV23 or PCV20) Pneumococcal Vaccine: Age 65+ (2 of 2 - PPSV23 or PCV20) [facility] Start: 05-18-2017 Pneumococcal Vaccine : Age 65+ (2 of 2 - PPSV23) Pneumococcal Vaccine: Age 65+ (2 of 2 - PPSV23) [facility] Start: 2008 Fall risk assessment Falls Risk Asse ssment [facility] Start: 1993 Administration of he rpes zoster vaccine Zoster Vaccines (1 of 2) [facility] Start: 1983 Screening for malign ant neoplasm of breast Mammogram [facility] Start: 1961 Hepatitis C screening Hepatitis C Sc reening [facility] Start: 1955 Depression screening using PHQ-9 (Patient Health Questionnaire 9) score Depression Screening (PHQ-2/9) [facility] Start: 1953 Diabetic foot examination [facility] Start: 1953 Glaucoma screening Diabetic Eye Exam [facility] Start: 1953 Microalbumin measurement, urine, quantitative Urine Microalbumin [facility] Start: 1953 Ophthalmic examinati on and evaluation Ophthalmology Exam [facility] Start: 1953 Urine screening for protein Urine Microalbumin [facility] Start: 1946 History and physical examination, annual for health maintenance Wellness Visit [facility] Start: 1943 Hemoglobin A1c measurement A1C [facility] Start: 1943 Screening for osteoporosis Dexa Scan [facility] Start: 1943 Tetanus vaccination Tetanus: Every 1 0yrs [facility] End: 10-10-2024 CT Head WO contrast CT Head Or Brain Without Contrast Imaging Routine Benign essential tremor 1 Occurrences starting 10/11/2023 until 10/10/2024 [facility] Work Phone: Comment on above: 1 Occurrences starti ng 10/11/2023 until 10/10/2024 Payers Date Payer Category Payer Private Health Insurance [id number] 2021 Private Health Insurance [facility] [id number] 2021 Private Health Insurance [facility] [id number] 2008 Medicare MEDICARE MEDICAR E PART A & B [id number] 2008-Present [phone] CGS [id number] PART [place] [place] [address] [id number] 2008 Medicare [id number] 1945 Unknown [id number] 2.16.840.1.389099.3.579.2 .900 1945 Unknown [id number] 2.16.840.1.087453.3.579.2 .1259 1945 Unknown [id number] 2.16.840.1.746380.3.579.2 .903 1945 Unknown [id number] 2.16.840.1.834925.3.579.2 .727 1945 Unknown [id number] 2.16.840.1.703152.3.579.2 .727 1943 Unknown [id number] 2.16.840.1.855592.3.579.2 .727 1943 Unknown [id number] 2.16.840.1.423352.3.579.2 .727 1943 Unknown [id number] 2.16.840.1.713921.3.579.2 .727 1943 Unknown [id number] 2.16.840.1.276505.3.579.2 .727 1945 Unknown [id number] 2.16.840.1.914816.3.579.2 .727 1945 Unknown [id number] 2.16.840.1.707327.3.579.2 .727 1943 Unknown [id number] 2.16.840.1.417507.3.579.2 .727 1943 Unknown [id number] 2.16.840.1.323349.3.579.2 .72 1945 Unknown [id number] 2.16.840.1.507263.3.579.2 .727 1943 Unknown [id number] 2.16.840.1.035296.3.579.2 .727 1943 Unknown [id number] 2.16.840.1.655432.3.579.2 .72 1945 Unknown [id number] 2.16.840.1.199778.3.579.2 .727 1945 Unknown [id number] 2.16.840.1.567355.3.579.2 .727 1945 Unknown [id number] 2.16.840.1.316518.3.579.2 .727 1945 Unknown [id number] 2.16.840.1.883388.3.579.2 .72 Social History Date Type Detail Facility Tobacco smoking status IAIS 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 smoking consumption unknown [facility] Start: 1945 Sex Assigned At Not on file [facility] Start: 10-17-2021 Tobacco smoking status [facility] Never sm oked tobacco [facility] Start: 10-17-2021 Tobacco use and exposure Smokeless t obacco non-user [facility] Start: 10-18-2021 End: 10-26-2023 Alcohol intake Current drinker of alcohol (finding) [facility] Start: 10-17-2021 History SDOH Alcohol Comment occassional [facility] Start: 10-07-2021 End: 10-17-2021 Exposure to SARS-CoV-2 (event) Not sure [facility] Start: 03-06-2022 End: 10-26-2023 History of Social function [facility] Start: 03-06-2022 End: 10-26-2023 Tobacco use panel [facility] Clinical Notes 10-17-2021 to 10-26-2023 Che Bear OT - 10/26/2023 1:15 PM Armen Sparrow DO - 10/11/2023 2:11 PM Johnathan Swenson MD - 10/17/2021 4:42 PM EDTPatient Instructions Note Date & Type Note Facility 10-26-2023 History of Presen t illness Narrative [facility] Occupational Therapy Evaluation Today's Date [...] Support: son and daughter live clost by [facility], social, or cultural considerations to be made aware of before starting treatment: No Home Environment Current Home Environment: Setup: multi-level house First floor: bedroom and full bath Second floor: bedroom and full bath Red Flags: None Comments: Barriers to Care: None Fall risk screening Fallen 2 or more times in the last 12 months: No [facility], social, or cultural considerations to be made [...] Exercise Log - 10/26/23 1416 Therapeutic Exercise (25645) Intervention OT HIFU EVAL OT Treatment Times [...] on file. 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 Please contact me at [phone] with any questions or concerns. This co-signature [...] to 11/26/2023. Che Bear OT State License, [id number] documented in this encounter [facility] 10-11-2023 History of Presen t illness [...] mouth 2 (two) times a day . zfskayq-tfdh-xfcqm-oreg-capryl 100 mg-150 mg- 50 mg-150 mg cap [...] sign absent bilaterally. Coordination: No dysmetria on rrbkah-fv-snsu or omid-yk-jduv; Significant action tremor noted of her right [...] diagnostic plan, and prognosis. Raven Macias MD [facility] [address] [facility] [address] [place] [address] [phone] Associated attestation - Raven Macias MD - [...] fu after eval documented in this encounter [facility] 10-17-2021 History of Presen t illness Narrative NEUROLOGY NOTE [facility], [place] [address] Ivon Cochran, [facility] second floor [facility] [address] Fax: [phone] Service date: 10/17/2021 Admit date: (Not on [...] based on her previous neurology notes from [facility]. Propranolol possibly made her asthma worse, gave [...] that comes out when she pours water jlsf-whj-iznkm between 2 cups. With the arm stretched out the right upper extremity shows a flexion extension component of the elbow as well. Left upper extremity is not as effective as the right. A voice tremor is also noticed but not appreciated much by the patient herself. Finger taps, hand hand fur cleaner, handgrips, foot taps and foot stomping worse [...] follow-up with a movement disorder specialist in [place] or [place] due to these factors. I have informed her of my impending departure from [facility]. My office will make the best efforts to transfer her care to a Movement Disorder Specialist within the [facility] system in person or via video [...] treatment (HIFU). These are options available at [facility] movement disorder [place]. If you are interested in any of these, please let me know so I can put referrals to get you to see Dr. Loraine Holm and the neurosurgeons at [place]. 8. Follow-up with movement disorder specialist in [place] in March. Assessment & plan notes cannot be loaded without a specified hospital service. COLT SWENSON MSc, MD. Staff Neurologist & Movement Disorder Specialist [facility] (Adj Asst: Professor, [employer] Dept of Neurology) CHRISTIANO Bauer [id number], [facility] [address] [facility] Fax: [phone] Attestation: Time Statement (OP Visits): A total [...] includes this note) documented in this encounter [facility] 10-17-2021 Instructions Colt Swenson MD - [...] treatment (HIFU). These are options available at [facility] movement disorder center. If you are interested in any of these, please let me know so I can put referrals to get you to see Dr. Loraine Holm and the neurosurgeons at [place]. Follow-up with movement disorder specialist in [place] in March. documented in this encounter [facility] Evaluation note Diagnosis Tremor- Primary Abnormal [...] Essential tremor- Primary documented in this encounter [facility] Summary Purpose Family History No Family History Records FoundNo Family History Records FoundNo Family History Records FoundNo Family History Records FoundNo Family History Records FoundNo Family History Records Found Advance Directives No Advanced Directives Records FoundDocuments on File Type Date Recorded Patient Neuroscience Specialist Expl anation Advance Directives and Living Will Reason for Referral Specialty Diagnoses / Procedures Referred By Tiana sims Referred To Contact Neurology Diagnoses Tremor Octavio Winters MD [address] [place] [id number] Colt Swenson MD [address] [place] [id number] Referral ID Status Reason Start Date Expiration Date V isits Requested Visits Authorized [id number] Pending Review 08/17/2021 08/17/2022 1 1 Specialty Diagnoses / Procedures Referred By Contac t Referred To Contact Neurology Diagnoses Essential tremor Colt Swenson MD [address] [address] [facility] [address] Medical Office Building, [address] [place] [address] Referral ID Status Reason Start Date Expiration Date V isits Requested Visits Authorized [id number] Authorized 03/06/2022 03/06/2023 1 1 Specialty Diagnoses / Procedures Referred By Contac t Referred To Contact Neurology Diagnoses Essential tremor Joie Tomas, KAILEE [address] [address] Loraine Holm MD [address] [facility] [address] [place] [address] Referral ID Status Reason Start Date Expiration Date Visits Requested Visits Authorized [id number] Authorized Specialty Services Required/Pat ient's Best Interest 11/11/2021 11/11/2022 1 1 Specialty Diagnoses / Procedures Referred By Contac t Referred To Contact Neurology Diagnoses Action tremor Octavio iWnters MD [address] [place] [address] [facility] Referral ID Status Reason Start Date Expiration Date V isits Requested Visits Authorized [id number] Authorized 04/10/2023 04/09/2024 1 1 Specialty Diagnoses / Procedures Referred By Contac t Referred To Contact Rehabilitation Diagnoses Benign essential tremor Raven Macias MD [address] [facility] [address] [place] [address] Referral ID Status Reason Start Date Expiration Date V isits Requested Visits Authorized [id number] Authorized 10/11/2023 10/10/2024 1 1 Specialty Diagnoses / Procedures Referred By Contac t Referred To Contact Radiology Diagnoses Benign essential tremor Procedures CT Head Or Brain Without Contrast Raven Macias MD [address] [place] [address] [facility] [address] [place] [address] Referral ID Status Reason Start Date Expiration Date Visits Re quested Visits Authorized [id number] Closed 10/11/2023 10/10/2024 1 1 Specialty Diagnoses / Procedures Referred By Tiana sims Referred To Contact Physical Therapy Diagnoses Essential tremor Raven Macias MD [address] [place] [address] OF SERVICE NOT IN SYSTEM Referral ID Status Reason Start Date Expiration Date V isits Requested Visits Authorized [id number] Closed Specialty Services Required/Makenna ent's Best Interest 10/29/2023 10/28/2024 1 1 Additional Source Comments INFORMATION SOURCE (unrecogn ized section and content) DATE CREATED AUTHOR 01/23/2018 [facility] DATE CREATED AUTHOR AUTHOR'S ORGANIZ ATION 08/27/2021 [facility] DATE CREATED AUTHOR AUTHOR'S ORGANIZ ATION 03/08/2022 [facility] DATE CREATED AUTHOR AUTHOR'S ORGANIZ ATION 07/02/2023 [facility] DATE CREATED AUTHOR AUTHOR'S ORGANIZ ATION 10/12/2023 [facility] DATE CREATED AUTHOR AUTHOR'S ORGANIZ ATION 10/31/2023 [facility] Reason for Visit (unrecogniz ed section and content) Reason Comments Physical Therapy Neuro Specialty Diagnoses / Procedures Referred By Taina sims Referred To Contact Rehabilitation Diagnoses Benign essential tremor Raven Macias MD [address] [place] [address] Referral ID Status Reason Start Date Expiration Date V isits Requested Visits Authorized [id number] Authorized 10/11/2023 10/10/2024 1 199 Reason Comments Tremors She states tremors i n her right hand. She states she noticed it after taking albuterol for a breathing treatment. She states writing is bad. She states her head bobs while driving. She states she chews more do to a fear of choking. Specialty Diagnoses / Procedures Referred By Tiaan sims Referred To Contact Neurology Diagnoses Tremor Octavio Winters MD [address] [place] [phone] Colt Swenson MD [address] [place], [place] [address] [place] [id number] Referral ID Status Reason Start Date Expiration Date Visits Re quested Visits Authorized [id number] Closed 08/17/2021 08/17/2022 1 1 Specialty Diagnoses / Procedures Referred By Tiana sims Referred To Contact Neurology Diagnoses Action tremor Octavio Winters MD [address] [place] [address] [facility] Referral ID Status Reason Start Date Expiration Date Visits Re quested Visits Authorized [id number] Closed 04/10/2023 04/09/2024 1 1 Reason Comments Occupational Therapy Referral ID Status Reason Start Date Expiration Date V isits Requested Visits Authorized [id number] Authorized 10/11/2023 10/10/2024 1 199 Care Teams (unrecognized sec tion and content) Academic Interventionist Relationship Specialty Start Date End Date Octavio Winters MD [address] [place] [address] PCP - General Family Medicine 08/23/21 Academic Interventionist Relationship Specialty Start Date End Date Octavio Winters MD [address] [place] [address] PCP - General Family Medicine 08/23/21 Academic Interventionist Relationship Specialty Start Date End Date Octavio Winters MD [address] [place] [address] PCP - General Family Medicine 08/23/21 Academic Interventionist Relationship Specialty Start Date End Date Octavio Winters MD [address] [place] [address] PCP - General Family Medicine 08/23/21 Academic Interventionist Relationship Specialty Start Date End Date Octavio Winters MD [address] [place] [address] PCP - General Family Medicine 08/23/21 Academic Interventionist Relationship Specialty Start Date End Date Octavio Winters MD [address] [place] [address] PCP - General Family Medicine 08/23/21 Academic Interventionist Relationship Specialty Start Date End Date Octavio Winters MD [address] [place] [address] PCP - General Family Medicine 08/23/21 FOR [...] BE BASED ON THE PRIMARY CLINICAL RECORDS. [facility] [employer] [facility]. provides no warranty or guarantee of the accuracy or completeness of information in this document.
[2023-11-16] MEDS: LIDOCAINE HCL 1% 100 MG/10 ML MDV INJ (12:51)
[2023-11-16] MEDS: 0.9 % SODIUM CHLORIDE 500 ML, LIDOCAINE HCL 20 ML, SODIUM BICARBONATE 10 MEQ INJ (12:52)
== END 2023-11-16 12:13 | disposition home or self-care (01) ==
LOC: VC 12:12
PROVIDERS: PCP Radiology Diagnostic Radiology; Visit Provider Radiology Diagnostic Radiology
DX: I83.813 Varicose veins of bilateral lower extremities with pain (principal)
CPT/HCPCS: 36478

== ENCOUNTER 2023-11-20 12:14 | Outpatient (OUT) | payer MEDICARE, SELFPAY ==
--- NOTE | 2023-11-20 | VEIN_ITS ---
Patient Name: CARLOS A BAKER MR#: [id number] : 1945 Exam Date: 11/20/2023 Ordering Doctor: DR LANG SMILEY M.D. RADIOLOGY REPORT PROCEDURE: VC EXT VENOUS RT LMTD COMPARISON: None. INDICATIONS: Phlebitis of superficial veins of rt lower extremity I80.01 TECHNIQUE: Lower extremity rangel scale and Duplex Doppler evaluation of the deep venous system from the inguinal ligament through the calf veins. FINDINGS: REGION: Right lower extremity. THROMBI: Negative for DVT. Heat Induced Thrombus visualized 2.9 cm. Heat Induced thrombus visualized in prox AASV and GSV. COMPRESSIBILITY: Non-compressible segments corresponding to thrombus FLOW: Areas of no flow corresponding to thrombus CONCLUSION: Post ablation occlusion of the treated right anterior accessory and great saphenous veins with no deep vein thrombus Dictated by: Lang Smiley MD on 11/20/2023 at 13:00 Approved by: Lang Smiley MD on 11/20/2023 at 13:01
--- NOTE | 2023-11-20 12:16 | VEIN_ITS ---
Patient Name: CARLOS A BAKER MR#: [id number] : 1945 Exam Date: 11/20/2023 Ordering Doctor: DR LANG SMILEY M.D. RADIOLOGY REPORT PROCEDURE: FACILITY EST LMTD VEIN CENTER - OFFICE VISIT FOLLOW UP COMPARISON: None. PROGRESS NOTES: The patient reports no significant problems following intravenous laser ablation of the right anterior accessory saphenous vein and right great saphenous vein. The patient did not require oral analgesics. The patient did wear her compression wraps. Physical exam demonstrates a small area of bruising in the anterior proximal thigh related to treatment of the anterior accessory saphenous vein. The veins cannot be definitively palpated likely related to body habitus. Or to suggest cellulitis or thrombophlebitis with active ulceration or Review of the ultrasound performed the same day demonstrates occlusive thrombus extending throughout the treated right anterior and great saphenous veins. No deep vein thrombus. The patient expressed a desire to proceed with treatment of left great saphenous vein with intravenous laser ablation. VEIN/[facility] EST LMTD IMPRESSION: 1. Successful ablation of the right great and right anterior accessory saphenous vein 2. Persistent incompetent left great saphenous vein. PLAN: Intravenous laser ablation left great saphenous vein Nurse notes, history and physical were reviewed and confirmed, see attached forms. The nurse was present throughout the physical exam and consultation Dictated by: Lang Smiley MD on 11/20/2023 at 13:12 Approved by: Lang Smiley MD on 11/20/2023 at 13:13
== END 2023-11-20 12:15 | disposition home or self-care (01) ==
LOC: VC 12:14
PROVIDERS: PCP Radiology Diagnostic Radiology; Visit Provider Radiology Diagnostic Radiology
DX: I80.01 Phlebitis and thrombophlebitis of superficial vessels of right lower extremity (principal)
CPT/HCPCS: 93971; G0463